=== PATIENT | female | born 1950 | race Caucasian/White ===

== ENCOUNTER 2016-10-30 06:50 | Inpatient (IN) | payer OTHER, MEDICARE ==
[~2016-10-30] VITALS: Ht 172.7 cm; Wt 149.0 kg
[2016-10-30] VITALS (8 sets, daily range): BP systolic 97–129; BP diastolic 61–86; PULSE 71–80; TEMP 36.8–38.7; O2SAT 95–100; Ht 172.7 cm; Wt 149.0 kg
[~2016-10-30 06:50] MED LIST: CHOL200027 PO; CMD2 PO; DIGO0.122 PO; ENOX30IN4 SQ; FENO200C6 PO; FLNIN NAE; GLC/500 PO; METO-551 PO; MOME100A INH; MONT1TAB3 PO; MULT-614 PO; SOTA160T PO; WARF1TAB PO
[2016-10-30] MEDS ORDERED: ACETAMINOPHEN 500 MG TAB PO STA (07:07)
[2016-10-30] MEDS ORDERED: ALBUT/IPRATROP 3MG/0.5MG NEB 3 ML VIAL INH STA (07:07)
[2016-10-30] MEDS ORDERED: ONDANSETRON INJ 2 MG/ML 2 ML VIAL IV STA (07:07)
[2016-10-30] MEDS ORDERED: SODIUM CHLORIDE 0.9% 1000ML 1,000 ML IV STA ×4 (07:07→08:06)
[2016-10-30] MEDS ORDERED: OPTIRAY 320 IV PRN (07:15)
--- NOTE | 2016-10-30 07:25 | EMERGENCY ROOM VISIT NOTE ---
History First contact with patient: 07:00 Chief Complaint: RESPIRATORY PROBLEMS Stated Complaint: NAUSEA,COLD,TROUBLE BREATHING Nursing Triage Summary: pt reports awoke in the night with fever and chills , cough , NV + mucus production yellow in color History of Present Illness The patient is a 66 year old female who presents to the Emergency Room with complaints of dyspnea, fever, chills, vomiting. The patient states that her symptoms started suddenly overnight. She states she has had fevers, chills, nausea, vomiting, productive cough. She reports feeling very short of breath. She states that she felt tired yesterday but otherwise has been doing well. She reports pain with deep inspiration and rates her discomfort a 3/10. She has a history of sarcoidosis. She has a history of pulmonary embolus 2. She is on Coumadin and had her INR checked on Tuesday and it was found to be 2.3. She denies any abdominal pain. She denies any diarrhea. Review of Systems A 10 system review of systems was completed with positives and pertinent negatives listed in the HPI. Past Medical/Surgical History Medical Problems: (1) Aspiration into respiratory tract (2) Atrial fibrillation (3) Pulmonary embolism (4) Sarcoidosis of lung (5) Sepsis Family History Patient reports no known family medical history. Social History Smoking Status: Never Smoker Drug Use: none Marital Status: Occupation Status: retired Current/Historical Medications Scheduled Cholecalciferol (Vitamin D-3), 4,000 MG PO QAM Digoxin (Digoxin), 1 TAB PO QPM Enoxaparin (Lovenox), 20 MG SQ DAILY Fenofibrate (Tricor), 200 MG PO QAM Fluticasone Propionate (Nasal) (Flonase Allergy Relief), 2 SPRAYS BRENDA QAM Metformin Hcl (Glucophage), 500 MG PO TID Metoprolol Tartrate (Lopressor), 50 MG PO PRN UD Mometasone Furoate-Formoterol (Dulera 100/5 Mcg), 2 PUFFS INH BID Multiple Vitamins W/ Minerals (Centrum Silver Ultra Wome), 1 TAB PO QAM Sotalol Hcl (Sotalol Hcl), 1.5 TAB PO BID Warfarin Sod (Coumadin), 1 TAB PO 6XWK Warfarin Sodium (Coumadin), 1 MG PO MON. Scheduled PRN Montelukast Sodium (Singulair), 10 MG PO QAM PRN for ALLERGIC REACTION Allergies Coded Allergies: Penicillins (Verified Allergy, Unknown, RASH ALL OVER, 10/30/16) Sulfa Drugs (Verified Allergy, Unknown, STOMACH ACHES, 10/30/16) Erythromycin (Verified Adverse Reaction, Unknown, STOMACH ACHES, 10/30/16) Loratadine (Verified Adverse Reaction, Unknown, HEART RACE, 10/30/16) Morphine (Verified Adverse Reaction, Unknown, INTOLERANT, 10/30/16) RECEIVED DURAMORPH 07/12/05 04/24/06 PER , PT RECEIVED MORPHINE ONCE AT [facility] AND BECAME "SHAKY", NO SOB, NO RASH, NO PRURITIS..NOT A TRUE ALLERGY Pseudoephedrine (Verified Adverse Reaction, Unknown, INTOLERANT, 10/30/16) Physical Exam Vital Signs Date Time Temp Pulse Resp B/P Pulse Ox O2 Delivery O2 Flow Rate FiO2 10/30/16 08:25 101 22 124/74 98 Nasal Cannula 2.0 10/30/16 07:52 98 10/30/16 07:32 97 Nasal Cannula 2.0 10/30/16 06:55 38.1 105 20 117/69 93 Room Air Physical Exam VITALS: Vitals are noted on the nurse's note and reviewed by myself. The patient is dyspneic. She is febrile with a temperature of 38.1C. She is tachycardic with heart rate 105 bpm. Her oxygen saturation is 93% on room air. GENERAL: This is a 66-year-old female, in no acute distress, nondiaphoretic, well-developed well-nourished. SKIN: The skin was without rashes, erythema, edema, or bruising. There is no tenting of the skin. Capillary reflex less than 2 seconds. HEAD: Normocephalic atraumatic. EARS: External auditory canals clear, tympanic membranes pearly sun without erythema or effusion bilaterally. EYES: Pupils equal round and reactive to light and accommodation. Conjunctivae without injection, sclerae without icterus. Extraocular movements intact. NOSE: Patent, turbinates without inflammation or discharge. MOUTH: Mucous membranes moist. Tonsils are not enlarged. Pharynx without erythema or exudate. Uvula midline. Airway patent. Tongue does not deviate. NECK: Supple without nuchal rigidity. No lymphadenopathy. No thyromegaly. Cervical spine is nontender. No JVD. HEART: Fast rate and regular rhythm without murmurs gallops or rubs. LUNGS: Diminished throughout. The patient is slightly dyspneic. No dullness to percussion. No retractions or accessory muscle use. ABDOMEN: Positive bowel sounds x 4. Soft, nontender, without masses or organomegaly. MUSCULOSKELETAL: No muscle atrophy, erythema, or edema noted. Full range of motion in all extremities. Strength 5/5 throughout. NEURO: Patient was alert and oriented to person place and time. No focal neurological deficits. Medical Decision & Procedures ER Provider Diagnostic Interpretation: SINGLE VIEW CHEST CLINICAL HISTORY: Cough and fever. FINDINGS: An AP, portable, upright chest radiograph is compared to study dated 02/28/2015. Correlation is made with chest CT dated 11/04/2011. The examination is degraded by portable technique, large body habitus, and patient rotation. The heart is enlarged and there is atherosclerotic calcification of the thoracic aorta. The pulmonary vasculature is noncongested. There are numerous calcified granulomas. Calcified mediastinal and hilar lymph nodes are observed. Chronic interstitial thickening is similar to previous. No airspace consolidation is seen typical for pneumonia and there is no large pleural effusion. No pneumothorax is seen. The skeletal structures are osteopenic. The bony thorax is grossly intact. Degenerative change is noted throughout the thoracic spine. IMPRESSION: Cardiomegaly with no acute cardiopulmonary abnormality. Laboratory Results 10/30/16 07:30 Red Blood Count 4.67, Mean Corpuscular Volume 96.1, Mean Corpuscular Hemoglobin 32.5, Mean Corpuscular Hemoglobin Concent 33.9, Mean Platelet Volume 10.1, Neutrophils (%) (Auto) 88.5, Lymphocytes (%) (Auto) 2.8, Monocytes (%) (Auto) 8.2, Eosinophils (%) (Auto) 0.2, Basophils (%) (Auto) 0.1, Neutrophils # (Auto) 16.25, Lymphocytes # (Auto) 0.51, Monocytes # (Auto) 1.50, Eosinophils # (Auto) 0.03, Basophils # (Auto) 0.01 Test 10/30/16 07:30 10/30/16 07:37 10/30/16 07:41 White Blood Count 18.34 K/uL (4.8-10.8) Red Blood Count 4.67 M/uL (4.2-5.4) Hemoglobin 15.2 g/dL (12.0-16.0) Hematocrit 44.9 % (37-47) Mean Corpuscular Volume 96.1 fL (80-100) Mean Corpuscular Hemoglobin 32.5 pg (25-34) Mean Corpuscular Hemoglobin Concent 33.9 g/dl (32-36) Platelet Count 197 K/uL (130-400) Mean Platelet Volume 10.1 fL (7.4-10.4) Neutrophils (%) (Auto) 88.5 % Lymphocytes (%) (Auto) 2.8 % Monocytes (%) (Auto) 8.2 % Eosinophils (%) (Auto) 0.2 % Basophils (%) (Auto) 0.1 % Neutrophils # (Auto) 16.25 K/uL (1.4-6.5) Lymphocytes # (Auto) 0.51 K/uL (1.2-3.4) Monocytes # (Auto) 1.50 K/uL (0.11-0.59) Eosinophils # (Auto) 0.03 K/uL (0-0.5) Basophils # (Auto) 0.01 K/uL (0-0.2) RDW Standard Deviation 44.8 fL (36.4-46.3) RDW Coefficient of Variation 12.9 % (11.5-14.5) Immature Granulocyte % (Auto) 0.2 % Immature Granulocyte # (Auto) 0.04 K/uL (0.00-0.02) Prothrombin Time 21.6 SECONDS (9.0-12.0) Prothromb Time International Ratio 2.0 (0.9-1.1) Activated Partial Thromboplast Time 39.1 SECONDS (21.0-31.0) Partial Thromboplastin Ratio 1.5 Total Bilirubin 0.8 mg/dl (0.2-1) Aspartate Amino Transf (AST/SGOT) 23 U/L (15-37) Alanine Aminotransferase (ALT/SGPT) 27 U/L (12-78) Alkaline Phosphatase 99 U/L (45-117) Total Protein 7.6 gm/dl (6.4-8.2) Albumin 3.6 gm/dl (3.4-5.0) Globulin 4.0 gm/dl (2.5-4.0) Albumin/Globulin Ratio 0.9 (0.9-2) Bedside Hemoglobin 15.3 g/dl (12.0-16.0) Bedside Hematocrit 45 % (37-47) Bedside Sodium 141 mEq/L (135-144) Bedside Potassium 3.8 mEq/L (3.3-5.0) Bedside Chloride 102 mEq/L (101-112) Bedside Total CO2 21 mEq/l (24-31) Bedside Blood Urea Nitrogen 16 mg/dl (7-18) Bedside Creatinine 0.7 mg/dl (0.6-1.3) Bedside Glucose (other) 148 mg/dl (70-99) Bedside Ionized Calcium (Celso) 1.14 mmol/l (1.12-1.32) Bedside Troponin I 0.000 ng/ml (0-0.045) Bedside Lactic Acid Venous 3.30 mmol/L (0.90-1.70) Medications Administered Medications (Trade) Dose Ordered Sig/Trinh Route Start Time Stop Time Status Last Admin Dose Admin Ondansetron HCl (Zofran Inj) 4 mg NOW STAT IV 10/30/16 07:07 10/30/16 07:10 DC 10/30/16 07:37 4 MG Acetaminophen (Tylenol Tab) 1,000 mg NOW STAT PO 10/30/16 07:07 10/30/16 07:10 DC 10/30/16 07:48 1,000 MG Albuterol/ Ipratropium 3 ml 3 ml NOW STAT INH 10/30/16 07:07 10/30/16 07:10 DC 10/30/16 07:48 3 ML Sodium Chloride 1,000 ml @ 100 mls/hr Q10H STAT IV 10/30/16 07:07 10/30/16 11:08 DC 10/30/16 07:48 100 MLS/HR Aztreonam 2000 mg/ Dextrose 110 ml @ 100 mls/hr ONE STAT IV 10/30/16 07:59 10/30/16 09:04 DC 10/30/16 08:24 100 MLS/HR Sodium Chloride 1,000 ml @ 999 mls/hr Q1H1M STAT IV 10/30/16 07:59 10/30/16 08:59 DC 10/30/16 08:03 999 MLS/HR Sodium Chloride 1,000 ml @ 999 mls/hr Q1H1M STAT IV 10/30/16 08:06 10/30/16 09:06 DC 10/30/16 08:24 999 MLS/HR Sodium Chloride 1,000 ml @ 999 mls/hr Q1H1M STAT IV 10/30/16 08:06 10/30/16 09:06 DC 10/30/16 10:00 999 MLS/HR Sodium Chloride (Nss 1000ml) 1,000 ml @ 100 mls/hr Q10H IV 10/30/16 08:43 11/29/16 08:42 10/30/16 08:43 100 MLS/HR Acetaminophen (Tylenol Tab) 650 mg Q4H PRN PO 10/30/16 08:45 11/29/16 08:44 10/30/16 16:00 650 MG Procedure The patient was monitored on a cad developer. She had sinus tachycardia and sinus rhythm. ECG Indication: vomiting Rate (beats per minute): 100 Rhythm: normal sinus Findings: RBBB Change: no significant change ED Course The patient was seen and examined. Previous visits were reviewed. Medication list was reviewed. The patient has a leukocytosis of 18.34 with a left shift. She does not have any significant electrolyte abnormality. Cardiac enzymes were not elevated. Lactic acid was elevated at 3.3. INR was 2.0. Urinalysis suggests infection versus contamination. Chest x-ray does not reveal any obvious abnormality The patient was given 4 mg IV Zofran She was given 1 g of oral Tylenol She was given a DuoNeb She was hydrated with normal saline, 30 mL/kilogram She was given Aztreonam 2 g IV The patient presents to the emergency department with acute onset cough, dyspnea , fever. She did have some episodes of vomiting overnight. This may represent an aspiration pneumonia. The patient appears to have sepsis. She has a leukocytosis, fever and elevated lactic acid at 3.3. She was treated with Aztreonam and clindamycin. Fluoroquinolones were avoided given the prolonged QTC on EKG. The patient was feeling markedly improved with the above treatment. She will require further evaluation and management in the hospital. The case was discussed with Dr. Rodriguez and he will evaluate the patient. The patient was also seen and examined by Dr. Chung who agrees with the assessment and treatment plan. n Medical Decision DIFFERENTIAL DIAGNOSIS: Aortic dissection, myocarditis, pericarditis, cervical disc disease, costochondritis, herpes zoster, rib fracture, pleuritis, pneumonia , pulmonary embolus, tension pneumothorax, anxiety disorder, somatoform disorder , choledocholithiasis, status, esophagitis, esophageal spasm, esophageal reflux , esophageal rupture, pancreatitis, peptic ulcer disease, cardiac ischemia, ST elevation NC, acute coronary syndrome, arrhythmia, coronary artery vasospasm. vavular heart disease, coronary artery disease, among others. Impression Primary Impression: Sepsis Additional Impression: Aspiration into respiratory tract Critical Care I have personally spent greater than 35 minutes of critical care time in the direct management of this patient. This includes bedside care, interpretation of diagnostic studies, and testing, discussion with consultants, patient, and family members, and other required patient management activities. This 30 minutes is in excess of all separately billable procedures. Departure Information Dispostion Admitted as an inpatient Condition FAIR Referrals Teresa RAYMOND M.D. (PCP) Patient Instructions My [facility] Problem Qualifiers
[2016-10-30 07:52] LABS: BASO % 0.1 %; BASO ABS # 0.01 K/uL (0-0.2); COMPLETE YES; EOS % 0.2 %; HEMATOCRIT 44.9 % (37-47); IG% 0.2 %; LYMPH % 2.8 %; LYMPH ABS # 0.51 K/uL (1.2-3.4); MEAN CELL VOLUME 96.1 fL (80-100); MEAN CORPUSCULAR HEMOGLOBIN 32.5 pg (25-34); MEAN CORPUSCULAR HGB CONC 33.9 g/dl (32-36); MEAN PLATELET VOLUME 10.1 fL (7.4-10.4); MONO % 8.2 %; NEUT % 88.5 %; PLATELET COUNT 197 K/uL (130-400); RED BLOOD COUNT 4.67 M/uL (4.2-5.4); WHITE BLOOD COUNT 18.34 K/uL (4.8-10.8)
[2016-10-30 07:54] LABS: ISTAT CREATININE 0.7 mg/dl (0.6-1.3); ISTAT HEMOGLOBIN 15.3 g/dl (12.0-16.0); ISTAT IONIZED CALCIUM 1.14 mmol/l (1.12-1.32)
[2016-10-30] MEDS ORDERED: AZTREONAM IV 2,000 MG in DEXTROSE 5% 100ML 100 ML IV STA (07:59)
[2016-10-30] MEDS ORDERED: CMD2 PO (08:00)
[2016-10-30] MEDS ORDERED: LNX125 PO (08:00)
[2016-10-30] MEDS ORDERED: FLUT0.15 NAE (08:00)
[2016-10-30 08:02] LABS: PARTIAL THROMBOPLASTIN RATIO 1.5; PROTHROMBIN TIME (PATIENT) 21.6 SECONDS (9.0-12.0)
--- NOTE | 2016-10-30 08:02 | DIAGNOSTIC IMAGING REPORT ---
SINGLE VIEW CHEST CLINICAL HISTORY: Cough and fever. FINDINGS: An AP, portable, upright chest radiograph is compared to study dated 02/28/2015. Correlation is made with chest CT dated 11/04/2011. The examination is degraded by portable technique, large body habitus, and patient rotation. The heart is enlarged and there is atherosclerotic calcification of the thoracic aorta. The pulmonary vasculature is noncongested. There are numerous calcified granulomas. Calcified mediastinal and hilar lymph nodes are observed. Chronic interstitial thickening is similar to previous. No airspace consolidation is seen typical for pneumonia and there is no large pleural effusion. No pneumothorax is seen. The skeletal structures are osteopenic. The bony thorax is grossly intact. Degenerative change is noted throughout the thoracic spine. IMPRESSION: Cardiomegaly with no acute cardiopulmonary abnormality. Electronically signed by: Sarwat Yeung M.D. 10/30/2016 8:00 AM Dictated Date/Time: 10/30/2016 7:58 AM
[2016-10-30 08:11] LABS: BUN/CREATININE RATIO 16.9 (10-20); CREATININE 0.99 mg/dl (0.60-1.20); POTASSIUM 3.8 mmol/L (3.5-5.1)
[2016-10-30 08:14] LABS: ALB/GLOB RATIO 0.9 (0.9-2)
[2016-10-30] MEDS ORDERED: CLINDAMYCIN 600 MG/54 ML D5W IV ONE (08:15)
[2016-10-30 08:35] LABS: CALCIUM 9.6 mg/dl (8.5-10.1)
[2016-10-30] MEDS: SODIUM CHLORIDE 0.9% 1000ML 1,000 ML IV SCH ×2 (08:43→22:01)
[2016-10-30] MEDS ORDERED: POLYETHYLENE (MIRALAX) 17 GM PACK PO PRN (08:45)
[2016-10-30] MEDS ORDERED: ALUMINUM/MAGNESIUM/SIMETH (MAALOX MAX) 30 ML UDC PO PRN (08:45)
[2016-10-30] MEDS ORDERED: MAGNESIUM HYDROXIDE SUSP 30 ML UDC PO PRN (08:45)
[2016-10-30] MEDS ORDERED: ONDANSETRON INJ 2 MG/ML 2 ML VIAL IV PRN (08:45)
[2016-10-30] MEDS ORDERED: SOTALOL HCL 80 MG TAB PO SCH (09:00)
--- NOTE | 2016-10-30 09:09 | History and Physical ---
History & Physical Date & Time of Service: October 30, 2016 at 08:53 Chief Complaint: Nausea,Cold,Trouble Breathing Primary Care Physician: Teresa RAYMOND M.D. History of Present Illness Source: patient, family, clinic records This is a 66 year old obese female with a PMH of multiple PEs on Coumadin, atrial fibrillation on sotalol & digoxin, sarcoid lung, moderate persistent asthma presents to the ER due to chills overnight; states that she went to bed in her usual state of health and at about 2AM she developed sudden episode of chills, rigors, weakness. She tried taking medications; and she then developed nausea and multiple episodes of vomiting. She mentions that she felt as if she choked on some of her vomitus. There were no precipitating symptoms prior to this; the only other symptom was mentioned by the , who is at bedside who states that perhaps she was coughing prior to going to sleep. Denies dysuria , urinary frequency, no diarrhea, no chest pain; there was some shortness of breath involved after the vomiting episodes. No abdominal pain. Once in the ER, she had work-up performed; WBC noted to be elevated, lactic acid elevated, she developed a fever - was given antibiotics, fluids, Tylenol - she feels slightly better, but chills persist. Past Medical/Surgical History Medical Problems: (1) Atrial fibrillation Status: Chronic (2) Pulmonary embolism Status: Chronic (3) Sarcoidosis of lung Status: Chronic Family History Patient reports no known family medical history. Social History Smoking Status: Never Smoker Drug Use: none Marital Status: Housing status: lives with family Occupational Status: retired Immunizations History of Influenza Vaccine: Yes Influenza Vaccine Date: Mar 18, 2010 History of Tetanus Vaccine?: Yes Tetanus Immunization Date: Nov 04, 2005 History of Pneumococcal: Yes Pneumococcal Date: Dec 16, 2008 History of Hepatitis B Vaccine: No Multi-Drug Resistant Organisms History of MDRO: No Allergies Coded Allergies: Penicillins (Verified Allergy, Unknown, RASH ALL OVER, 10/30/16) Sulfa Drugs (Verified Allergy, Unknown, STOMACH ACHES, 10/30/16) Erythromycin (Verified Adverse Reaction, Unknown, STOMACH ACHES, 10/30/16) Loratadine (Verified Adverse Reaction, Unknown, HEART RACE, 10/30/16) Morphine (Verified Adverse Reaction, Unknown, INTOLERANT, 10/30/16) RECEIVED DURAMORPH 07/12/05 04/24/06 PER , PT RECEIVED MORPHINE ONCE AT [facility] AND BECAME "SHAKY", NO SOB, NO RASH, NO PRURITIS..NOT A TRUE ALLERGY Pseudoephedrine (Verified Adverse Reaction, Unknown, INTOLERANT, 10/30/16) Home Medications Scheduled Cholecalciferol (Vitamin D-3), 4,000 MG PO QAM Digoxin (Digoxin), 1 TAB PO QPM Enoxaparin (Lovenox), 20 MG SQ DAILY Fenofibrate (Tricor), 200 MG PO QAM Fluticasone Propionate (Nasal) (Flonase Allergy Relief), 2 SPRAYS BRENDA QAM Metformin Hcl (Glucophage), 500 MG PO TID Metoprolol Tartrate (Lopressor), 50 MG PO PRN UD Mometasone Furoate-Formoterol (Dulera 100/5 Mcg), 2 PUFFS INH BID Multiple Vitamins W/ Minerals (Centrum Silver Ultra Wome), 1 TAB PO QAM Sotalol Hcl (Sotalol Hcl), 1.5 TAB PO BID Warfarin Sod (Coumadin), 1 TAB PO 6XWK Warfarin Sodium (Coumadin), 1 MG PO MON. Scheduled PRN Montelukast Sodium (Singulair), 10 MG PO QAM PRN for ALLERGIC REACTION Review of Systems Constitutional: + chills, + fatigue, + fever, + weakness, No sweats, No weight loss Respiratory: + cough, + shortness of breath, No dyspnea at rest, No dyspnea on exertion, No hemoptysis, No sputum, No wheezing Cardiovascular: No chest pain, No claudication, No edema, No orthopnea, No palpitations Abdomen: + nausea, + vomiting, No GI bleeding, No constipation, No diarrhea, No pain Musculoskeletal: No calf pain, No joint pain, No muscle pain, No swelling Genitourinary - Female: No dysuria, No hematuria, No urinary frequency, No urinary incontinence, No urinary retention, No urinary urgency Neurologic: + weakness, No balance problems, No numbness/tingling, No vertigo Psychiatric: No anxiety, No depression symptoms, No insomnia Hematologic / Lymphatic: No abnormal bleeding/bruising Integumentary: No rash Allergic / Immunologic: + environmental allergies, + seasonal allergies, No food allergies, No frequent infections, No hives, No pet sensitivities Physical Exam Vital Signs Date Time Temp Pulse Resp B/P Pulse Ox O2 Delivery O2 Flow Rate FiO2 10/30/16 08:25 101 22 124/74 98 Nasal Cannula 2.0 10/30/16 07:52 98 10/30/16 07:32 97 Nasal Cannula 2.0 10/30/16 06:55 38.1 105 20 117/69 93 Room Air General Appearance: + mild distress ([id number] distress; chills/rigors noted during exam), + obese Head: normocephalic, atraumatic Eyes: normal inspection ENT: hearing grossly normal Neck: supple Respiratory/Chest: no respiratory distress, no accessory muscle use, + decreased breath sounds, + pertinent finding (no wheezing, no rhonchi) Cardiovascular: no edema, no gallop, no JVD, no murmur, normal peripheral pulses, + tachycardia Abdomen/GI: normal bowel sounds, non tender, soft, no organomegaly Extremities/Musculoskelatal: normal inspection, no calf tenderness, normal capillary refill, no pedal edema, normal range of motion Neurologic/Psych: forward 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 controller/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 officer II-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 nml as tested, no motor/sensory deficits, alert, normal mood/affect Skin: normal color Lymphatic: no adenopathy Diagnostics Laboratory Results Results Past 24 Hours Test 10/30/16 07:30 10/30/16 07:37 10/30/16 07:41 10/30/16 08:43 Range/Units White Blood Count 18.34 4.8-10.8 K/uL Red Blood Count 4.67 4.2-5.4 M/uL Hemoglobin 15.2 12.0-16.0 g/dL Hematocrit 44.9 37-47 % Mean Corpuscular Volume 96.1 80-100 fL Mean Corpuscular Hemoglobin 32.5 25-34 pg Mean Corpuscular Hemoglobin Concent 33.9 32-36 g/dl Platelet Count 197 130-400 K/uL Mean Platelet Volume 10.1 7.4-10.4 fL Neutrophils (%) (Auto) 88.5 % Lymphocytes (%) (Auto) 2.8 % Monocytes (%) (Auto) 8.2 % Eosinophils (%) (Auto) 0.2 % Basophils (%) (Auto) 0.1 % Neutrophils # (Auto) 16.25 1.4-6.5 K/uL Lymphocytes # (Auto) 0.51 1.2-3.4 K/uL Monocytes # (Auto) 1.50 0.11-0.59 K/uL Eosinophils # (Auto) 0.03 0-0.5 K/uL Basophils # (Auto) 0.01 0-0.2 K/uL RDW Standard Deviation 44.8 36.4-46.3 fL RDW Coefficient of Variation 12.9 11.5-14.5 % Immature Granulocyte % (Auto) 0.2 % Immature Granulocyte # (Auto) 0.04 0.00-0.02 K/uL Prothrombin Time 21.6 9.0-12.0 SECONDS Prothromb Time International Ratio 2.0 0.9-1.1 Activated Partial Thromboplast Time 39.1 21.0-31.0 SECONDS Partial Thromboplastin Ratio 1.5 Sodium Level 139 136-145 mmol/L Potassium Level 3.8 3.5-5.1 mmol/L Chloride Level 106 98-107 mmol/L Carbon Dioxide Level 24 21-32 mmol/L Anion Gap 9.0 23.0 16-25 mmol/L Blood Urea Nitrogen 17 7-18 mg/dl Creatinine 0.99 0.60-1.20 mg/dl Est Creatinine Clear Calc Drug Dose 87.2 ml/min Estimated GFR () 68.8 Estimated GFR (Non- 59.4 BUN/Creatinine Ratio 16.9 10-20 Random Glucose 146 70-99 mg/dl Calcium Level 9.6 8.5-10.1 mg/dl Total Bilirubin 0.8 0.2-1 mg/dl Aspartate Amino Transf (AST/SGOT) 23 15-37 U/L Alanine Aminotransferase (ALT/SGPT) 27 12-78 U/L Alkaline Phosphatase 99 45-117 U/L Total Creatine Kinase 85 26-192 U/L Total Protein 7.6 6.4-8.2 gm/dl Albumin 3.6 3.4-5.0 gm/dl Globulin 4.0 2.5-4.0 gm/dl Albumin/Globulin Ratio 0.9 0.9-2 Bedside Hemoglobin 15.3 12.0-16.0 g/dl Bedside Hematocrit 45 37-47 % Bedside Sodium 141 135-144 mEq/L Bedside Potassium 3.8 3.3-5.0 mEq/L Bedside Chloride 102 101-112 mEq/L Bedside Total CO2 21 24-31 mEq/l Bedside Blood Urea Nitrogen 16 7-18 mg/dl Bedside Creatinine 0.7 0.6-1.3 mg/dl Bedside Glucose (other) 148 70-99 mg/dl Bedside Ionized Calcium (Celso) 1.14 1.12-1.32 mmol/l Bedside Troponin I 0.000 0-0.045 ng/ml Bedside Lactic Acid Venous 3.30 0.90-1.70 mmol/L Microbiology Results 10/30/16 Blood Culture, Received Pending 10/30/16 Blood Culture, Received Pending Diagnostic Radiology SINGLE VIEW CHEST CLINICAL HISTORY: Cough and fever. FINDINGS: An AP, portable, upright chest radiograph is compared to study dated 02/28/2015. Correlation is made with chest CT dated 11/04/2011. The examination is degraded by portable technique, large body habitus, and patient rotation. The heart is enlarged and there is atherosclerotic calcification of the thoracic aorta. The pulmonary vasculature is noncongested. There are numerous calcified granulomas. Calcified mediastinal and hilar lymph nodes are observed. Chronic interstitial thickening is similar to previous. No airspace consolidation is seen typical for pneumonia and there is no large pleural effusion. No pneumothorax is seen. The skeletal structures are osteopenic. The bony thorax is grossly intact. Degenerative change is noted throughout the thoracic spine. IMPRESSION: Cardiomegaly with no acute cardiopulmonary abnormality. EKG NSR RBBB Impression Assessment and Plan This is a 66 year old obese female with a PMH of multiple PEs on Coumadin, atrial fibrillation on sotalol & digoxin, sarcoid lung, moderate persistent asthma presents to the ER due to chills/rigors Sepsis possibly secondary to pneumonia? CXR Cardiomegaly with no acute cardiopulmonary abnormality noted to have leukocytosis, lactic acidosis, fever, tachycardia, meets sepsis criteria Unsure the source, though patient noted she had vomiting with chills/rigors and likely aspirated on vomitus will treat aspiration pneumonia - noted penicillin allergy; will start Clindamycin 600mg q8 blood cultures pending will give IVFs and recheck lactic acid Tylenol PRN for fevers will recheck CXR in AM check urinalysis monitor in tele Hx. of Multiple PEs continue Coumadin INR = 2.0 A. Fib currently in sinus rhythm tachycardic, likely from dehydration + infection will give IVFs, monitor in tele continue digoxin + sotalol Prolonged QTc >500 on current EKG will recheck EKG in AM avoid prolonging agents; will continue Sotalol Sarcoid Lung continue inhalers nebs as needed DVT ppx Coumadin FULL CODE VTE Prophylaxis VTE Risk Assessment Done? Y/N: Yes Risk Level: High Given or contraindicated: Warfarin (Coumadin)
[2016-10-30 09:45] LABS: BUN/CREATININE RATIO 17.8 (10-20); CALCIUM 8.1 mg/dl (8.5-10.1); CREATININE 0.88 mg/dl (0.60-1.20); MAGNESIUM 1.6 mg/dl (1.8-2.4); POTASSIUM 3.8 mmol/L (3.5-5.1)
[2016-10-30] MEDS ORDERED: CLINDAMYCIN IV 600 MG in DEXTROSE 5% ADD-VANTAGE 50ML 50 ML IV ONE (10:00)
[2016-10-30] MEDS ORDERED: CLINDAMYCIN CONSULT ACTIVE PRN ×2 (10:10)
[2016-10-30] MEDS ORDERED: MAGNESIUM SULFATE 1GM / D5W 1 GM in PREMIXED IN D5W 100 ML IV ONE ×2 (11:15→12:15)
[2016-10-30] MEDS: POTASSIUM CHLR 10 MEQ / WTR 10 MEQ in PREMIXED WATER 100 ML IV SCH ×2 (11:33→12:27)
[2016-10-30] MEDS: ASPIRIN 81 MG ECTAB PO SCH (12:28)
[2016-10-30] MEDS: FLUTICASONE PROPIONATE NA SPR 16 GM BTL NAE SCH (12:28)
[2016-10-30] MEDS: MONTELUKAST SOD 10 MG TAB PO PRN (12:28)
[2016-10-30] MEDS: SOTALOL HCL 80 MG TAB PO SCH ×2 (12:30→22:00)
[2016-10-30 13:03] LABS: URINE APPEARANCE CLOUDY (CLEAR); URINE BILIRUBIN NEG (NEG); URINE COLOR DK YELLOW; URINE EPITHELIAL CELL AUTO >30 /lpf (0-5); URINE NITRITE NEG (NEG); URINE PH 5.5 (4.5-7.5); URINE SPECIFIC GRAVITY 1.026 (1.000-1.030); UROBILINOGEN NEG (NEG); ZZUR CULT IF INDIC CLEAN CATCH YES
[2016-10-30 13:04] LABS: MANUAL MICROSCOPIC REQUIRED? NO; REVIEW REQ? NO
--- NOTE | 2016-10-30 14:31 | EMERGENCY ROOM VISIT NOTE ---
ED Visit Note First contact with patient: 07:00 I have personally evaluated and examined this patient. I agree with assessment and plan of Maria Luisa Sanchez PA-C. Sepsis likely secondary to lung source given her complaints and exam. With allergies and prolonged qtc will treat with aztreonam and clinda. She has no abdominal pain nor evidence that this is intraabdominal source.
[2016-10-30] MEDS: LEVALBUTEROL 1.25MG/0.5ML NEB INH SCH ×2 (14:33→18:50)
[2016-10-30] MEDS: ACETAMINOPHEN 325 MG TAB PO PRN ×2 (16:00→23:46)
[2016-10-30] MEDS: WARFARIN SOD 2 MG TAB PO SCH (16:18)
[2016-10-30] MEDS: DIGOXIN 0.125 MG TAB PO SCH (16:19)
[2016-10-30] MEDS: CLINDAMYCIN IV 600 MG in DEXTROSE 5% ADD-VANTAGE 50ML 50 ML IV SCH ×2 (16:19→21:59)
[2016-10-31] VITALS (13 sets, daily range): BP systolic 98–122; BP diastolic 59–87; PULSE 68–110; TEMP 36.9–38; O2SAT 91–99
[2016-10-31] MEDS: LEVALBUTEROL 1.25MG/0.5ML NEB INH SCH ×4 (01:53→18:52)
[2016-10-31] MEDS: CLINDAMYCIN IV 600 MG in DEXTROSE 5% ADD-VANTAGE 50ML 50 ML IV SCH ×4 (03:47→21:42)
[2016-10-31] MEDS: SODIUM CHLORIDE 0.9% 1000ML 1,000 ML IV SCH ×3 (04:55→16:12)
[2016-10-31 07:33] LABS: BASO % 0.1 %; BASO ABS # 0.01 K/uL (0-0.2); COMPLETE YES; EOS % 0.1 %; HEMATOCRIT 41.8 % (37-47); IG% 0.2 %; LYMPH % 5.3 %; LYMPH ABS # 0.67 K/uL (1.2-3.4); MEAN CELL VOLUME 99.3 fL (80-100); MEAN CORPUSCULAR HEMOGLOBIN 32.5 pg (25-34); MEAN CORPUSCULAR HGB CONC 32.8 g/dl (32-36); MEAN PLATELET VOLUME 9.5 fL (7.4-10.4); MONO % 9.4 %; NEUT % 84.9 %; PLATELET COUNT 138 K/uL (130-400); RED BLOOD COUNT 4.21 M/uL (4.2-5.4); WHITE BLOOD COUNT 12.58 K/uL (4.8-10.8)
[2016-10-31] MEDS: ASPIRIN 81 MG ECTAB PO SCH (07:33)
[2016-10-31] MEDS: MONTELUKAST SOD 10 MG TAB PO PRN (07:33)
[2016-10-31] MEDS: FLUTICASONE PROPIONATE NA SPR 16 GM BTL NAE SCH (07:33)
[2016-10-31] MEDS: SOTALOL HCL 80 MG TAB PO SCH ×2 (07:33→20:23)
[2016-10-31 07:48] LABS: PROTHROMBIN TIME (PATIENT) 21.7 SECONDS (9.0-12.0)
[2016-10-31 08:15] LABS: BUN/CREATININE RATIO 17.6 (10-20); CREATININE 0.85 mg/dl (0.60-1.20); MAGNESIUM 2.2 mg/dl (1.8-2.4); POTASSIUM 3.9 mmol/L (3.5-5.1)
[2016-10-31 08:26] LABS: THYROID STIMULATING HORMONE 1.08 uIu/ml (0.300-4.500)
[2016-10-31 08:28] LABS: CALCIUM 8.8 mg/dl (8.5-10.1)
--- NOTE | 2016-10-31 09:37 | DIAGNOSTIC IMAGING REPORT ---
CHEST 2 VIEWS ROUTINE CLINICAL HISTORY: Shortness of breath. Evaluate for pneumonia. COMPARISON STUDY: Chest radiograph October 30, 2016. FINDINGS: There is no pneumothorax or pleural effusion. Mild cardiomegaly is unchanged. Mild interstitial thickening may be chronic. There is no consolidation to suggest pneumonia. IMPRESSION: Mild cardiomegaly with interstitial thickening which may be chronic. No consolidation to suggest pneumonia. Electronically signed by: John John M.D. 10/31/2016 9:35 AM Dictated Date/Time: 10/31/2016 9:34 AM
--- NOTE | 2016-10-31 10:07 | Progress Note ---
Subjective Date of Service: October 31, 2016. Subjective Pt evaluation today including: conversation w/ patient, physical exam, lab review, review of studies, review of inpatient medication list Saw/examined the patient in room 207 She still has chills today, overall feeling very weak shortness of breath has improved no significant coughing episodes c/o L lower extremity pain Review of Systems Constitutional: + chills, + fatigue, + fever, + sweats, + weakness Respiratory: + cough, + shortness of breath (improving), No dyspnea on exertion , No sputum, No wheezing Cardiac: No chest pain, No edema, No palpitations Abdomen: + nausea, No GI bleeding, No constipation, No diarrhea, No pain, No vomiting Heme: No abnormal bleeding/bruising Medications Current Inpatient Medications Medications (Trade) Dose Ordered Sig/Trinh Route Start Time Stop Time Status Last Admin Dose Admin Sodium Chloride (Nss 1000ml) 1,000 ml @ 100 mls/hr Q10H IV 10/30/16 08:43 11/29/16 08:42 10/31/16 04:55 100 MLS/HR Acetaminophen (Tylenol Tab) 650 mg Q4H PRN PO 10/30/16 08:45 11/29/16 08:44 10/30/16 23:46 650 MG Al Hydrox/Mg Hydrox/Simethicone (Maalox Max Susp) 15 ml Q4H PRN PO 10/30/16 08:45 11/29/16 08:44 Magnesium Hydroxide (Milk Of Magnesia Susp) 30 ml Q12H PRN PO 10/30/16 08:45 11/29/16 08:44 Ondansetron HCl (Zofran Inj) 4 mg Q6H PRN IV 10/30/16 08:45 11/29/16 08:44 10/30/16 19:30 4 MG Aspirin (Ecotrin Tab) 81 mg QAM PO 10/30/16 09:00 11/29/16 08:59 10/31/16 07:33 81 MG Polyethylene (Miralax Powder Packet) 17 gm DAILY PRN PO 10/30/16 08:45 11/29/16 08:44 Clindamycin Phosphate 1 ea 1 ea UD PRN N/A 10/30/16 10:10 11/29/16 10:09 Clindamycin Phosphate/Dextrose (Cleocin Iv/ Dextrose Add-[place] 50ML) 54 ml @ 100 mls/hr Q6H IV 10/30/16 16:00 11/06/16 15:59 10/31/16 03:47 100 MLS/HR Digoxin (Lanoxin Tab) 0.125 mg DAILY@1600 PO 10/30/16 16:00 11/29/16 15:59 10/30/16 16:19 0.125 MG Fluticasone Propionate (Flonase Nasal [place]) 2 sprays QAM BRENDA 10/30/16 09:00 11/29/16 08:59 10/31/16 07:33 2 SPRAYS Montelukast Sodium (Singulair Tab) 10 mg QAM PRN PO 10/30/16 09:00 11/29/16 08:59 10/31/16 07:33 10 MG Warfarin Sodium (Coumadin Tab) 2 mg SuTuWeThFrSa@1600 PO 10/30/16 16:00 11/29/16 15:59 10/30/16 16:18 2 MG Miscellaneous Information (Order Awaiting Action) 1 ea QS N/A 10/30/16 16:00 11/29/16 15:59 Levalbuterol (Xopenex 1.25MG/ 0.5ML Neb) 1.25 mg Q6R INH 10/30/16 15:00 11/29/16 14:59 10/31/16 07:43 1.25 MG Warfarin Sodium (Coumadin Tab) 1 mg Mo@1600 PO 11/01/16 16:00 12/01/16 15:59 Sotalol HCl 240 mg 240 mg BID PO 10/30/16 12:30 11/29/16 12:29 10/31/16 07:33 240 MG Levofloxacin/Prmx (Levaquin / D5W/ Premixed D5W) 150 ml @ 100 mls/hr Q24H IV 10/31/16 10:00 11/07/16 09:59 Objective Vital Signs Date Time Temp Pulse Resp B/P Pulse Ox O2 Delivery O2 Flow Rate FiO2 10/31/16 07:43 68 16 91 Room Air 10/31/16 04:00 Nasal Cannula 2.0 10/31/16 03:31 37.0 70 21 99/59 95 Room Air 10/31/16 01:53 75 16 97 Nasal Cannula 2.0 10/31/16 00:02 Nasal Cannula 2.0 10/30/16 23:44 38.7 76 22 97/63 97 Nasal Cannula 2.0 10/30/16 20:00 Nasal Cannula 2.0 10/30/16 19:51 36.9 79 24 101/86 99 Nasal Cannula 2.0 10/30/16 18:50 71 16 98 Nasal Cannula 3.0 10/30/16 16:19 77 10/30/16 16:00 95 Nasal Cannula 3.0 10/30/16 15:59 36.8 77 20 129/65 100 Nasal Cannula 3.0 10/30/16 14:34 77 16 98 Nasal Cannula 3.0 10/30/16 12:00 95 Nasal Cannula 3.0 10/30/16 11:10 37.8 80 20 105/61 95 Nasal Cannula 3.0 10/30/16 10:40 86 18 95 Physical Exam General Appearance: + mild distress (mild to moderate distress - chills, weakness), + obese Respiratory/Chest: chest non-tender, lungs clear, normal breath sounds, no respiratory distress, no accessory muscle use Cardiovascular: regular rate, rhythm, no edema, no murmur Abdomen: normal bowel sounds, non tender, soft Extremities: + pertinent finding (warmth at the LLE; mildly erythematous) Neurologic/Psychiatric: no motor/sensory deficits, alert, normal mood/affect Laboratory Results Last 24 Hours Test 10/30/16 12:00 10/30/16 15:27 10/30/16 22:47 10/31/16 07:22 Urine Color DK YELLOW Urine Appearance CLOUDY Urine pH 5.5 Urine Specific [place] 1.026 Urine Protein NEG Urine Glucose (UA) NEG Urine Ketones TRACE Urine Occult Blood TRACE Urine Nitrite NEG Urine Bilirubin NEG Urine Urobilinogen NEG Urine Leukocyte Esterase MODERATE Urine WBC (Auto) >30 /hpf Urine RBC (Auto) 0-4 /hpf Urine Hyaline Casts (Auto) 5-10 /lpf Urine Epithelial Cells (Auto) >30 /lpf Urine Bacteria (Auto) 2+ Total Creatine Kinase 100 U/L 116 U/L Creatine Kinase MB < 0.5 ng/ml < 0.5 ng/ml Creatine Kinase MB Ratio Troponin I < 0.015 ng/ml < 0.015 ng/ml White Blood Count 12.58 K/uL Red Blood Count 4.21 M/uL Hemoglobin 13.7 g/dL Hematocrit 41.8 % Mean Corpuscular Volume 99.3 fL Mean Corpuscular Hemoglobin 32.5 pg Mean Corpuscular Hemoglobin Concent 32.8 g/dl Platelet Count 138 K/uL Mean Platelet Volume 9.5 fL Neutrophils (%) (Auto) 84.9 % Lymphocytes (%) (Auto) 5.3 % Monocytes (%) (Auto) 9.4 % Eosinophils (%) (Auto) 0.1 % Basophils (%) (Auto) 0.1 % Neutrophils # (Auto) 10.69 K/uL Lymphocytes # (Auto) 0.67 K/uL Monocytes # (Auto) 1.18 K/uL Eosinophils # (Auto) 0.01 K/uL Basophils # (Auto) 0.01 K/uL RDW Standard Deviation 49.3 fL RDW Coefficient of Variation 13.6 % Immature Granulocyte % (Auto) 0.2 % Immature Granulocyte # (Auto) 0.02 K/uL Prothrombin Time 21.7 SECONDS Prothromb Time International Ratio 2.0 Sodium Level 137 mmol/L Potassium Level 3.9 mmol/L Chloride Level 103 mmol/L Carbon Dioxide Level 27 mmol/L Anion Gap 7.0 mmol/L Blood Urea Nitrogen 15 mg/dl Creatinine 0.85 mg/dl Est Creatinine Clear Calc Drug Dose 100.6 ml/min Estimated GFR () 82.8 Estimated GFR (Non- 71.4 BUN/Creatinine Ratio 17.6 Random Glucose 116 mg/dl Calcium Level 8.8 mg/dl Magnesium Level 2.2 mg/dl Thyroid Stimulating Hormone (TSH) 1.080 uIu/ml Test 10/31/16 08:07 Lactic Acid Level 1.7 mmol/L Assessment and Plan This is a 66 year old obese female with a PMH of multiple PEs on Coumadin, atrial fibrillation on sotalol & digoxin, sarcoid lung, moderate persistent asthma presents to the ER due to chills/rigors Sepsis possibly secondary to CAP vs. UTI 10/31 clinically she feels about the same, significant chills, sweats, weakness spiking fevers at night WBC trending down, lactic acid normalized will keep Clindamycin and add Levaquin to the regimen cut IVF rate to 80mL/hr CXR from this morning shows no consolidation or infiltrate to suggest pneumonia , though clinically, possibly a pneumonia UA positive leuks and +2 bacteria, urine culture, blood cultures pending 10/30 CXR Cardiomegaly with no acute cardiopulmonary abnormality noted to have leukocytosis, lactic acidosis, fever, tachycardia, meets sepsis criteria Unsure the source, though patient noted she had vomiting with chills/rigors and likely aspirated on vomitus will treat aspiration pneumonia - noted penicillin allergy; will start Clindamycin 600mg q8 blood cultures pending will give IVFs and recheck lactic acid Tylenol PRN for fevers will recheck CXR in AM check urinalysis monitor in tele Hx. of Multiple PEs continue Coumadin INR = 2.0 A. Fib 10/31 HRs have improved with IVFs continue sotalol and digoxin 10/30 currently in sinus rhythm tachycardic, likely from dehydration + infection will give IVFs, monitor in tele continue digoxin + sotalol Prolonged QTc >500 on current EKG will recheck EKG in AM avoid prolonging agents; will continue Sotalol Sarcoid Lung continue inhalers nebs as needed DVT ppx Coumadin FULL CODE
[2016-10-31] MEDS: ACETAMINOPHEN 325 MG TAB PO PRN ×3 (11:05→20:24)
[2016-10-31] MEDS: LEVOFLOXACIN / D5W 750 MG in PREMIXED IN D5W 150 ML IV SCH (11:05)
[2016-10-31] MEDS ORDERED: DILTIAZEM HCL 5 MG/ML 5 ML VIAL IV STA (11:39)
[2016-10-31] MEDS: DIGOXIN 0.125 MG TAB PO SCH (16:11)
[2016-10-31] MEDS: WARFARIN SOD 2 MG TAB PO SCH (16:12)
[2016-10-31] MEDS ORDERED: METOPROLOL TARTRATE 1 MG/ML VIAL IV PRN (17:15)
--- NOTE | 2016-10-31 20:49 | CARDIOLOGY CONSULTATION ---
DATE OF CONSULTATION: 10/31/2016 TIME: 16:59 p.m. PRIMARY POLICY SERVICE COORDINATOR: Dr. Jeff Schneider. CONSULTING PHYSICIAN: Dr. Rodriguez. REASON FOR CONSULTATION: Atrial fibrillation with rapid ventricular response. HISTORY OF PRESENT ILLNESS: Ms. Toscano is a pleasant 66-year-old female with a history significant for atrial fibrillation on antiarrhythmic therapy and anticoagulation, pulmonary embolism x2 approximately 30 years ago, and pulmonary sarcoidosis who presented to [facility] and was diagnosed with sepsis. She was found be into atrial fibrillation with rapid ventricular response this morning, after initially being in sinus rhythm. She has been on sotalol for approximately 30 years and has been taking 240 mg twice daily. She has been on Coumadin and is followed by [facility] in [place]. Her INR has been therapeutic throughout both on presentation and when repeated today with an INR of 2. She denies bleeding such as melena, hematochezia or hematuria. She typically feels palpitations when she has atrial fibrillation episodes which occurs few times a year. At home, she takes metoprolol 50 mg as needed when she has atrial fibrillation and typically within 45 minutes, her symptoms resolved and she checks her pulse and finds it to be both regular and with a normal rate, following beta karla administration. She has been taking her medications as prescribed but woke up at 2:00 a.m. yesterday morning with fevers and chills and then developed nausea and eventually vomiting before coming to the hospital for further evaluation. She has been febrile intermittently throughout her hospital stay and has been diagnosed with sepsis by the primary service. She went into atrial fibrillation this morning but unlike other episodes that she explained in the past, she is asymptomatic. She denies palpitations. She did have pleuritic chest pain yesterday, but this has resolved and she has not had any worsening symptoms with atrial fibrillation. In fact, her breathing overall has improved throughout her hospital stay. She was given diltiazem 20 mg IV x1 at 12:21 this afternoon. Her heart rate has been tachycardic while in atrial fibrillation and mostly during our visit today her heart rate has been between 100 and 120, but she has been as fast as 130s at times. She has developed left lower leg pain with walking that started this morning. It developed red erythema and pain. She wonders if she has cellulitis. She reports having pulmonary emboli approximately 30 years ago around the time that she developed atrial fibrillation. In regards to her atrial fibrillation, sotalol doses have increased over the years. She also has been placed on digoxin chronically. She has undergone electrical cardioversion once approximately 20 years ago, otherwise, her paroxysmal episodes tend to be short lived. REVIEW OF SYSTEMS: As above and otherwise review of systems are negative. PAST MEDICAL HISTORY: 1. Atrial fibrillation on antiarrhythmic therapy and anticoagulation therapy as described. 2. Pulmonary emboli, approximately 30 years ago, on 2 separate occasions. 3. Pulmonary sarcoidosis, but has not yet received treatment. She is followed by pulmonology. 4. Asthma. 5. Prediabetes. HOME MEDICATIONS: Include Coumadin, digoxin 0.125 mg daily, metformin 500 mg b.i.d., metoprolol 50 mg once daily as needed for atrial fibrillation, Singulair, sotalol 240 mg twice daily. INPATIENT MEDICATIONS: Include aspirin 81 mg daily, clindamycin 600 mg IV q. 6 hours, digoxin 0.125 mg daily, levofloxacin 750 mg IV q. 24 hours, normal saline 80 mL per hour, sotalol 240 mg p.o. b.i.d., Coumadin 2 mg all days of the week except for Tuesday when she takes 1 mg. ALLERGIES: INCLUDE ERYTHROMYCIN, LORATADINE, MORPHINE, PENICILLIN, PSEUDOEPHEDRINE AND SULFA DRUGS. SOCIAL HISTORY: Denies tobacco, alcohol or drug abuse. She is . She has 2 children and 4 grandchildren. She is currently alone in her hospital room. FAMILY HISTORY: No known premature CAD. PHYSICAL EXAMINATION: VITAL SIGNS: Temperature 37.7 degrees, heart rate 104 beats per minute, respiration rate 16, blood pressure 101/79 mmHg, oxygen saturation 96% on room air. I's and O's positive 1.1 liters yesterday. Weight 149 kg. GENERAL: No acute distress. She is alert and oriented. HEENT: Anicteric sclerae. NECK: Thick, no appreciable JVD. No bruits. Normal carotid upstrokes bilaterally. CARDIAC: PMI was nonpalpable. There was no ventricular heave, irregularly irregular, normal S1, S2. There were no audible murmurs, rubs or gallops. LUNGS: Clear to auscultation bilaterally without wheezes, rales or rhonchi. ABDOMEN: Obese, soft, nontender, nondistended, normoactive bowel sounds, no bruits noted. EXTREMITIES: No edema. There is erythema in left lower extremity which is also warm to touch. No palpable cords. 2+ radial pulses bilaterally. 2+ dorsalis pedis pulses bilaterally. PSYCHIATRIC: Affect appears appropriate. DATA: ECG 10/30/2016 at 7:39 a.m. demonstrated normal sinus rhythm at 100 beats per minute. Right bundle branch block. QT interval is acceptable. LABORATORY DATA: INR 2. Sodium 137, potassium 3.9, BUN 15, creatinine 0.85, magnesium 2.2. Lactic acid was initially 2.7 down to 1.7, glucose 116. Troponin undetectable. TSH 1.08, albumin 3.6. White blood cell count 12.58 down from 18.34, hemoglobin 13.7, platelets 138. Urinalysis has moderate leukocyte esterase, many white blood cells, trace occult blood and 2+ bacteria. Urine culture - more than 3 organisms present, all moderate counts, mixed probable skin myles. Blood cultures pending. Telemetry personally reviewed. Currently in atrial fibrillation. ASSESSMENT AND PLAN: 1. Atrial fibrillation: She has paroxysmal atrial fibrillation and is currently in rapid ventricular response. The rapid response is likely physiologic given her ongoing fevers. Her episode of atrial fibrillation may also be exacerbated by fevers. Continue sotalol at home dose for now as well as digoxin. Will write an order for p.r.n. metoprolol intravenously for heart rates greater than 120 beats per minute. Hopefully, when her fever breaks and she starts to improve clinically, she will convert back to sinus rhythm. Monitor QT interval while on sotalol and also fluoroquinolone. Initial ECG - QT is acceptable, especially when accounting for her right bundle branch block. Continue anticoagulation for stroke risk reduction. INR is therapeutic. 2. Cellulitis and concern for urinary tract infection: As per primary service. 3. Prolonged QT: Her acute TQ measures long; however; she has a right bundle branch block and therefore, her initial ECG, it is acceptable. Monitor QT closely; however, given her medications. We will repeat ECG tomorrow. 4. Disposition: Cardiology will continue to follow. Thank for allowing me to participate in care of Ms. Toscano.
[2016-11-01] VITALS (9 sets, daily range): BP systolic 97–148; BP diastolic 55–70; PULSE 65–89; TEMP 36.5–37; O2SAT 93–97
[2016-11-01] MEDS: LEVALBUTEROL 1.25MG/0.5ML NEB INH SCH ×3 (02:21→14:30)
[2016-11-01] MEDS: ACETAMINOPHEN 325 MG TAB PO PRN ×4 (02:26→20:32)
[2016-11-01] MEDS: SODIUM CHLORIDE 0.9% 1000ML 1,000 ML IV SCH ×2 (03:45→16:10)
[2016-11-01] MEDS: CLINDAMYCIN IV 600 MG in DEXTROSE 5% ADD-VANTAGE 50ML 50 ML IV SCH ×4 (03:45→20:33)
[2016-11-01 05:57] LABS: HEMATOCRIT 36.6 % (37-47); MEAN CELL VOLUME 99.2 fL (80-100); MEAN CORPUSCULAR HEMOGLOBIN 33.9 pg (25-34); MEAN CORPUSCULAR HGB CONC 34.2 g/dl (32-36); MEAN PLATELET VOLUME 10.1 fL (7.4-10.4); PLATELET COUNT 131 K/uL (130-400); RED BLOOD COUNT 3.69 M/uL (4.2-5.4); WHITE BLOOD COUNT 7.95 K/uL (4.8-10.8)
[2016-11-01 06:13] LABS: INR 2.2 (0.9-1.1); PROTHROMBIN TIME (PATIENT) 24.4 SECONDS (9.0-12.0)
[2016-11-01 06:33] LABS: BUN/CREATININE RATIO 18.6 (10-20); CALCIUM 7.9 mg/dl (8.5-10.1); CREATININE 0.68 mg/dl (0.60-1.20); MAGNESIUM 2.1 mg/dl (1.8-2.4); POTASSIUM 3.6 mmol/L (3.5-5.1)
[2016-11-01] MEDS: ASPIRIN 81 MG ECTAB PO SCH (08:03)
[2016-11-01] MEDS: SOTALOL HCL 80 MG TAB PO SCH ×2 (08:03→20:32)
[2016-11-01] MEDS: FLUTICASONE PROPIONATE NA SPR 16 GM BTL NAE SCH (08:03)
--- NOTE | 2016-11-01 10:04 | Progress Note ---
Subjective Date of Service: November 01, 2016. Subjective Pt evaluation today including: conversation w/ patient, physical exam, lab review, review of studies, review of inpatient medication list Saw/examined the patient in room 207 She's doing much better today breathing improved no chest pain L LE erythema, pain Review of Systems Constitutional: + weakness, No chills, No fever Respiratory: No cough, No shortness of breath, No sputum Cardiac: No chest pain Abdomen: No diarrhea, No nausea, No pain, No vomiting Musculoskeletal: + muscle pain (L LE) Medications Current Inpatient Medications Medications (Trade) Dose Ordered Sig/Trinh Route Start Time Stop Time Status Last Admin Dose Admin Sodium Chloride (Nss 1000ml) 1,000 ml @ 80 mls/hr [id number] IV 10/30/16 08:43 11/29/16 08:42 11/01/16 03:45 80 MLS/HR Acetaminophen (Tylenol Tab) 650 mg Q4H PRN PO 10/30/16 08:45 11/29/16 08:44 11/01/16 08:54 650 MG Al Hydrox/Mg Hydrox/Simethicone (Maalox Max Susp) 15 ml Q4H PRN PO 10/30/16 08:45 11/29/16 08:44 Magnesium Hydroxide (Milk Of Magnesia Susp) 30 ml Q12H PRN PO 10/30/16 08:45 11/29/16 08:44 Ondansetron HCl (Zofran Inj) 4 mg Q6H PRN IV 10/30/16 08:45 11/29/16 08:44 10/30/16 19:30 4 MG Aspirin (Ecotrin Tab) 81 mg QAM PO 10/30/16 09:00 11/29/16 08:59 11/01/16 08:03 81 MG Polyethylene (Miralax Powder Packet) 17 gm DAILY PRN PO 10/30/16 08:45 11/29/16 08:44 Clindamycin Phosphate 1 ea 1 ea UD PRN N/A 10/30/16 10:10 11/29/16 10:09 Clindamycin Phosphate/Dextrose (Cleocin Iv/ Dextrose Add-[place] 50ML) 54 ml @ 100 mls/hr Q6H IV 10/30/16 16:00 11/06/16 15:59 11/01/16 03:45 100 MLS/HR Digoxin (Lanoxin Tab) 0.125 mg DAILY@1600 PO 10/30/16 16:00 11/29/16 15:59 10/31/16 16:11 0.125 MG Fluticasone Propionate (Flonase Nasal [place]) 2 sprays QAM BRENDA 10/30/16 09:00 11/29/16 08:59 11/01/16 08:03 2 SPRAYS Montelukast Sodium (Singulair Tab) 10 mg QAM PRN PO 10/30/16 09:00 11/29/16 08:59 10/31/16 07:33 10 MG Warfarin Sodium (Coumadin Tab) 2 mg SuTuWeThFrSa@1600 PO 10/30/16 16:00 11/29/16 15:59 10/31/16 16:12 2 MG Miscellaneous Information (Order Awaiting Action) 1 ea QS N/A 10/30/16 16:00 11/29/16 15:59 Levalbuterol (Xopenex 1.25MG/ 0.5ML Neb) 1.25 mg Q6R INH 10/30/16 15:00 11/29/16 14:59 11/01/16 06:59 1.25 MG Warfarin Sodium (Coumadin Tab) 1 mg Mo@1600 PO 11/01/16 16:00 12/01/16 15:59 Sotalol HCl 240 mg 240 mg BID PO 10/30/16 12:30 11/29/16 12:29 11/01/16 08:03 240 MG Levofloxacin/Prmx (Levaquin / D5W/ Premixed D5W) 150 ml @ 100 mls/hr Q24H IV 10/31/16 10:00 11/07/16 09:59 10/31/16 11:05 100 MLS/HR Metoprolol Tartrate (Lopressor Iv) 5 mg Q4 PRN IV 10/31/16 17:15 11/30/16 17:14 Objective Vital Signs Date Time Temp Pulse Resp B/P Pulse Ox O2 Delivery O2 Flow Rate FiO2 11/01/16 07:55 36.6 89 17 97/61 96 Room Air 11/01/16 06:59 69 16 95 Room Air 11/01/16 04:07 36.8 69 20 109/63 95 Room Air 11/01/16 04:00 Room Air 11/01/16 02:21 66 14 93 Room Air 10/31/16 23:58 Room Air 10/31/16 23:19 37.0 68 20 98/65 94 Room Air 10/31/16 20:00 Room Air 10/31/16 19:47 36.9 110 20 100/81 95 Room Air 10/31/16 18:52 110 16 96 Room Air 10/31/16 16:14 37.0 108 20 122/87 97 Room Air 10/31/16 16:11 104 10/31/16 16:00 95 Room Air 10/31/16 14:00 83 16 96 Room Air 10/31/16 12:01 37.7 103 20 101/79 94 Room Air 10/31/16 12:00 95 Nasal Cannula 2.0 Physical Exam General Appearance: no apparent distress, + obese Respiratory/Chest: chest non-tender, lungs clear, normal breath sounds, no respiratory distress, no accessory muscle use Cardiovascular: regular rate, rhythm, no edema, no murmur Abdomen: normal bowel sounds, non tender, soft Extremities: normal range of motion, no pedal edema, no calf tenderness, + pertinent finding (erythematous, warm to touch, tenderness to palpation) Neurologic/Psychiatric: no motor/sensory deficits, alert, normal mood/affect Laboratory Results Last 24 Hours Test 11/01/16 05:42 White Blood Count 7.95 K/uL Red Blood Count 3.69 M/uL Hemoglobin 12.5 g/dL Hematocrit 36.6 % Mean Corpuscular Volume 99.2 fL Mean Corpuscular Hemoglobin 33.9 pg Mean Corpuscular Hemoglobin Concent 34.2 g/dl RDW Standard Deviation 49.1 fL RDW Coefficient of Variation 13.6 % Platelet Count 131 K/uL Mean Platelet Volume 10.1 fL Prothrombin Time 24.4 SECONDS Prothromb Time International Ratio 2.2 Sodium Level 140 mmol/L Potassium Level 3.6 mmol/L Chloride Level 107 mmol/L Carbon Dioxide Level 27 mmol/L Anion Gap 6.0 mmol/L Blood Urea Nitrogen 13 mg/dl Creatinine 0.68 mg/dl Est Creatinine Clear Calc Drug Dose 125.8 ml/min Estimated GFR () 105.6 Estimated GFR (Non- 91.2 BUN/Creatinine Ratio 18.6 Random Glucose 112 mg/dl Calcium Level 7.9 mg/dl Magnesium Level 2.1 mg/dl Assessment and Plan This is a 66 year old obese female with a PMH of multiple PEs on Coumadin, atrial fibrillation on sotalol & digoxin, sarcoid lung, moderate persistent asthma presents to the ER due to chills/rigors Sepsis possibly secondary to CAP vs. UTI 11/01 will continue Levaquin + Clindamycin EKG shows no worsening of QTc WBC resolved lactic acidosis normalized blood culture no growth to date can likely switch to PO Levaquin and Clindamycin on discharge, possible discharge home in 1-2 days 10/31 clinically she feels about the same, significant chills, sweats, weakness spiking fevers at night WBC trending down, lactic acid normalized will keep Clindamycin and add Levaquin to the regimen cut IVF rate to 80mL/hr CXR from this morning shows no consolidation or infiltrate to suggest pneumonia , though clinically, possibly a pneumonia UA positive leuks and +2 bacteria, urine culture, blood cultures pending 10/30 CXR Cardiomegaly with no acute cardiopulmonary abnormality noted to have leukocytosis, lactic acidosis, fever, tachycardia, meets sepsis criteria Unsure the source, though patient noted she had vomiting with chills/rigors and likely aspirated on vomitus will treat aspiration pneumonia - noted penicillin allergy; will start Clindamycin 600mg q8 blood cultures pending will give IVFs and recheck lactic acid Tylenol PRN for fevers will recheck CXR in AM check urinalysis monitor in tele Hx. of Multiple PEs continue Coumadin INR = 2.0 A. Fib 11/01 back to normal sinus rhythm continue home meds appreciate cardiology input 10/31 HRs have improved with IVFs continue sotalol and digoxin 10/30 currently in sinus rhythm tachycardic, likely from dehydration + infection will give IVFs, monitor in tele continue digoxin + sotalol Prolonged QTc >500 on current EKG will recheck EKG in AM avoid prolonging agents; will continue Sotalol Sarcoid Lung continue inhalers nebs as needed DVT ppx Coumadin FULL CODE
[2016-11-01] MEDS: LEVOFLOXACIN / D5W 750 MG in PREMIXED IN D5W 150 ML IV SCH (11:35)
--- NOTE | 2016-11-01 12:10 | CARDIOLOGY PROGRESS NOTE ---
DATE: 11/01/2016 TIME: 11:34 a.m. SUBJECTIVE: She feels much better overall. She denies any further fevers or chills. She was asymptomatic with atrial fibrillation; however, now she thinks she may have felt too small "flips." She converted to sinus rhythm last night at 2316 p.m. She continues to have left lower leg pain where the site of a cellulitis is present. She denies chest pain, shortness of breath, syncope, near syncope. She also denies bleeding. OBJECTIVE: VITAL SIGNS: Temperature 36.6 degrees, heart rate 89 beats per minute, respiration rate 17, blood pressure 97/61 mmHg, oxygen saturation 96% on room air. I's and O's positive 1.2 liters yesterday. Weight 149 kg. GENERAL: No acute distress. She is alert and oriented. NECK: Thick. CARDIAC: No ventricular heave. Regular, normal S1, S2. No audible murmurs, rubs or gallops. LUNGS: Clear to auscultation bilaterally without wheezes, rales or rhonchi. ABDOMEN: Obese, soft, nontender, nondistended, normoactive bowel sounds, no bruits noted. EXTREMITIES: Erythema on the left distal lower extremity is still present but appears improved. No significant pitting edema. No cyanosis. PSYCHIATRIC: Affect appears appropriate. MEDICATIONS: Include aspirin 81 mg daily, clindamycin 600 mg IV q. 6 hours, digoxin 0.125 mg p.o. daily, sotalol 240 mg p.o. b.i.d., levofloxacin 750 mg IV q. 24 hours; metoprolol tartrate 5 mg IV p.r.n. for tachycardia of heart rate greater than 120, however, she has not received a dose; Singulair 10 mg daily, normal saline 80 mL per hour, Coumadin 1 mg on Tuesday, otherwise 2 mg all other days. LABORATORY DATA: White blood cell count of 7.95 down from 12.58, hemoglobin 12.5, platelets 131. INR 2.2. Sodium 140, potassium 3.6, BUN 13, creatinine 0.68, magnesium 2.1. IMAGING DATA: ECG personally reviewed from 11/01/2016 at 6:39 a.m. Normal sinus rhythm at 68 beats per minute, right bundle branch block, left anterior fascicular block. The QT interval is acceptable. Telemetry personally reviewed. No arrhythmia since 23:16 when she converted to sinus rhythm. She was in atrial fibrillation before that. ASSESSMENT AND PLAN: 1. Atrial fibrillation: She has paroxysmal atrial fibrillation and converted overnight. Continue home dose of sotalol. Monitor QT interval periodically. Continue digoxin as per her outpatient cardiology regimen. Continue p.r.n., metoprolol if need be for elevated heart rates as ordered. Current QT interval is acceptable. Continue anticoagulation for stroke risk reduction. INR continues to be therapeutic. 2. Cellulitis and concern for urinary tract infection: Treatment as per primary service. 3. Disposition: Cardiology care will resume tomorrow by her primary fruit packer, Dr. Jeff Schneider. Please call for any further questions or concerns.
[2016-11-01] MEDS ORDERED: LEVALBUTEROL 1.25MG/0.5ML NEB INH PRN (14:45)
[2016-11-01] MEDS ORDERED: WARFARIN SOD 1 MG TAB PO SCH (16:00)
[2016-11-01] MEDS: DIGOXIN 0.125 MG TAB PO SCH (16:11)
[2016-11-01] MEDS: LEValbuterol HFA 15GM INHALER INH SCH (20:32)
[2016-11-02] VITALS (7 sets, daily range): BP systolic 104–128; BP diastolic 58–75; PULSE 62–68; TEMP 36.9–37.1; O2SAT 95–96
[2016-11-02] MEDS: ACETAMINOPHEN 325 MG TAB PO PRN ×3 (00:31→12:29)
[2016-11-02] MEDS: CLINDAMYCIN IV 600 MG in DEXTROSE 5% ADD-VANTAGE 50ML 50 ML IV SCH ×2 (04:12→09:30)
[2016-11-02] MEDS: SODIUM CHLORIDE 0.9% 1000ML 1,000 ML IV SCH (04:14)
[2016-11-02] MEDS: LEValbuterol HFA 15GM INHALER INH SCH ×2 (05:44)
[2016-11-02 06:43] LABS: HEMATOCRIT 38.6 % (37-47); MEAN CELL VOLUME 97.5 fL (80-100); MEAN CORPUSCULAR HEMOGLOBIN 32.8 pg (25-34); MEAN CORPUSCULAR HGB CONC 33.7 g/dl (32-36); PLATELET COUNT 170 K/uL (130-400); RED BLOOD COUNT 3.96 M/uL (4.2-5.4); WHITE BLOOD COUNT 6.95 K/uL (4.8-10.8)
[2016-11-02 07:18] LABS: BUN/CREATININE RATIO 17.8 (10-20); CALCIUM 8.2 mg/dl (8.5-10.1); CREATININE 0.71 mg/dl (0.60-1.20); POTASSIUM 3.9 mmol/L (3.5-5.1)
[2016-11-02] MEDS: SOTALOL HCL 80 MG TAB PO SCH (09:09)
[2016-11-02] MEDS: FLUTICASONE PROPIONATE NA SPR 16 GM BTL NAE SCH (09:09)
[2016-11-02] MEDS: ASPIRIN 81 MG ECTAB PO SCH (09:09)
[2016-11-02] MEDS: LEVOFLOXACIN / D5W 750 MG in PREMIXED IN D5W 150 ML IV SCH (10:26)
--- NOTE | 2016-11-02 10:36 | Progress Note ---
Subjective Date of Service: November 02, 2016. Subjective Pt evaluation today including: conversation w/ patient, physical exam, lab review, review of studies, review of inpatient medication list Saw/examined the patient in room 207 She's doing well; No shortness of breath, no chest pain R LE erythema is improving Review of Systems Constitutional: No chills, No fever, No weakness Respiratory: No shortness of breath Cardiac: + edema, No chest pain, No palpitations Abdomen: No diarrhea, No nausea, No pain, No vomiting Musculoskeletal: + muscle pain (L LE muscle pain) Heme: No abnormal bleeding/bruising Objective Vital Signs Date Time Temp Pulse Resp B/P Pulse Ox O2 Delivery O2 Flow Rate FiO2 11/02/16 07:41 37.1 68 16 128/73 96 Room Air 11/02/16 04:10 36.9 65 18 104/58 95 Room Air 11/02/16 04:00 95 Room Air 11/02/16 00:01 95 Room Air 11/01/16 23:47 36.6 70 26 144/55 97 Room Air 11/01/16 20:00 Room Air 11/01/16 19:44 37.0 73 18 148/70 95 11/01/16 16:11 66 11/01/16 16:00 Room Air 11/01/16 15:23 37.0 66 18 107/59 96 Room Air 11/01/16 14:30 65 16 95 Room Air 11/01/16 12:03 36.5 85 17 113/66 96 Room Air 11/01/16 12:00 Room Air Physical Exam General Appearance: no apparent distress Respiratory/Chest: chest non-tender, lungs clear, normal breath sounds, no respiratory distress, no accessory muscle use Cardiovascular: regular rate, rhythm, no edema, no gallop, no JVD, no murmur Abdomen: normal bowel sounds, non tender, soft Extremities: + pertinent finding (erythematous L LE; improving, only mildly warm now, improved coloration) Laboratory Results Last 24 Hours Test 11/02/16 06:00 White Blood Count 6.95 K/uL Red Blood Count 3.96 M/uL Hemoglobin 13.0 g/dL Hematocrit 38.6 % Mean Corpuscular Volume 97.5 fL Mean Corpuscular Hemoglobin 32.8 pg Mean Corpuscular Hemoglobin Concent 33.7 g/dl RDW Standard Deviation 47.3 fL RDW Coefficient of Variation 13.3 % Platelet Count 170 K/uL Mean Platelet Volume 10.0 fL Sodium Level 142 mmol/L Potassium Level 3.9 mmol/L Chloride Level 108 mmol/L Carbon Dioxide Level 27 mmol/L Anion Gap 7.0 mmol/L Blood Urea Nitrogen 13 mg/dl Creatinine 0.71 mg/dl Est Creatinine Clear Calc Drug Dose 120.5 ml/min Estimated GFR () 102.9 Estimated GFR (Non- 88.8 BUN/Creatinine Ratio 17.8 Random Glucose 104 mg/dl Calcium Level 8.2 mg/dl Assessment and Plan This is a 66 year old obese female with a PMH of multiple PEs on Coumadin, atrial fibrillation on sotalol & digoxin, sarcoid lung, moderate persistent asthma presents to the ER due to chills/rigors Sepsis possibly secondary to CAP vs. UTI 11/02 she is feeling well, afebrile, no leukocytosis, no lactic acidosis, vitals stable she is feeling well d/c on Levaquin and Clindamycin PO x7 days to total 10 days 11/01 will continue Levaquin + Clindamycin EKG shows no worsening of QTc WBC resolved lactic acidosis normalized blood culture no growth to date can likely switch to PO Levaquin and Clindamycin on discharge, possible discharge home in 1-2 days 10/31 clinically she feels about the same, significant chills, sweats, weakness spiking fevers at night WBC trending down, lactic acid normalized will keep Clindamycin and add Levaquin to the regimen cut IVF rate to 80mL/hr CXR from this morning shows no consolidation or infiltrate to suggest pneumonia , though clinically, possibly a pneumonia UA positive leuks and +2 bacteria, urine culture, blood cultures pending 10/30 CXR Cardiomegaly with no acute cardiopulmonary abnormality noted to have leukocytosis, lactic acidosis, fever, tachycardia, meets sepsis criteria Unsure the source, though patient noted she had vomiting with chills/rigors and likely aspirated on vomitus will treat aspiration pneumonia - noted penicillin allergy; will start Clindamycin 600mg q8 blood cultures pending will give IVFs and recheck lactic acid Tylenol PRN for fevers will recheck CXR in AM check urinalysis monitor in tele Hx. of Multiple PEs continue Coumadin INR = 2.0 A. Fib 11/01 back to normal sinus rhythm continue home meds appreciate cardiology input 10/31 HRs have improved with IVFs continue sotalol and digoxin 10/30 currently in sinus rhythm tachycardic, likely from dehydration + infection will give IVFs, monitor in tele continue digoxin + sotalol Prolonged QTc >500 on current EKG will recheck EKG in AM avoid prolonging agents; will continue Sotalol Sarcoid Lung continue inhalers nebs as needed DVT ppx Coumadin FULL CODE
[2016-11-02] MEDS ORDERED: LVQ750 PO (10:41)
[2016-11-02] MEDS ORDERED: CLC150 PO (10:41)
[2016-11-02] MEDS ORDERED: LCTX PO (10:44)
--- NOTE | 2016-11-02 10:45 | Discharge Instructions ---
Discharge Instructions Date of Service November 02, 2016. Admission Reason for Admission: Aspiration Into Respiratory Tract; Sepsis Discharge Discharge Diagnosis / Problem: Sepsis secondary to aspiration pneumonia and R lower extremity cellulitis Discharge Goals Goal(s): Decrease discomfort, Improve function, Diagnostic testing, Therapeutic intervention Activity Recommendations Activity Limitations: resume your previous activity . Instructions / Follow-Up Instructions / Follow-Up Please follow-up with Dr. Collins on November 05 at 12:45PM You will be discharged with Levaquin and clindamycin for 7 more days, take as prescribed You should take pro-biotics Take ibuprofen, Motrin, or Aleve in the short term for the pain in the lower extremity Current Hospital Diet Patient's current hospital diet: AHA Diet (Heart Healthy) Discharge Diet Recommended Diet: AHA Diet (Heart Healthy), Diabetes Type 2 Diet Pending Studies Studies pending at discharge: no Medical Emergencies . Who to Call and When: Medical Emergencies: If at any time you feel your situation is an emergency, please call 911 immediately. . Non-Emergent Contact Non-Emergency issues call your: Primary Care Provider Call Non-Emergent contact if: you have a fever, your pain is not controlled, your pain is worsening, your pain is concerning you . . "Provider Documentation" section prepared by Hamlet Rodriguez. . VTE Core Measure Inpt VTE Proph given/why not?: Warfarin (Coumadin)
--- NOTE | 2016-11-02 10:47 | Discharge Summary ---
Discharge Summary Date of Service November 02, 2016. Discharge Summary Admission Date: October 30, 2016 at 08:50 Discharge Date: November 02, 2016 Discharge Disposition: Home Principal Diagnosis: Sepsis secondary to Aspiration Pneumonia and Cellulitis of the Lower Extremity Medication Reconciliation New Medications: Clindamycin HCl (Clindamycin HCl) 150 Mg Cap 300 MG PO Q6 for 7 Days, #56 CAP Lactobacillus Acidophilus (Lactinex) Tab 1 TAB PO DAILY for 7 Days, #7 TAB Levofloxacin (Levofloxacin) 750 Mg Tab 750 MG PO DAILY for 7 Days, #7 TABS Continued Medications: Cholecalciferol (Vitamin D-3) 2,000 Unit Tab 4000 MG PO QAM Digoxin (Digoxin) 0.125 Mg Tab 1 TAB PO QPM Enoxaparin (Lovenox) 30 Mg/0.3 Ml Inj 20 MG SQ DAILY for procedures, SYR Fenofibrate (Tricor) 200 Mg Cap 200 MG PO QAM, CAP Fluticasone Propionate (Nasal) (Flonase Allergy Relief) 50 Mcg/Act Spr 2 SPRAYS BRENDA QAM Metformin Hcl (Glucophage) 500 Mg Tab 500 MG PO TID, TAB Metoprolol Tartrate (Lopressor) 50 Mg Tab 50 MG PO PRN UD for A-FIB, TAB Mometasone Furoate-Formoterol (Dulera 100/5 Mcg) 1 Aer Aer 2 PUFFS INH BID Montelukast Sodium (Singulair) 10 Mg Tab 10 MG PO QAM PRN for ALLERGIC REACTION, TAB Multiple Vitamins W/ Minerals (Centrum Silver Ultra Wome) 1 Tab Tab 1 TAB PO QAM Sotalol Hcl (Sotalol Hcl) 160 Mg Tab 1.5 TAB PO BID Warfarin Sod (Coumadin) 2 Mg Tab 1 TAB PO 6XWK everyday except tuesday Warfarin Sodium (Coumadin) 1 Mg Tab 1 MG PO MON., TAB Admission Information HPI (per Admitting provider): This is a 66 year old obese female with a PMH of multiple PEs on Coumadin, atrial fibrillation on sotalol & digoxin, sarcoid lung, moderate persistent asthma presents to the ER due to chills overnight; states that she went to bed in her usual state of health and at about 2AM she developed sudden episode of chills, rigors, weakness. She tried taking medications; and she then developed nausea and multiple episodes of vomiting. She mentions that she felt as if she choked on some of her vomitus. There were no precipitating symptoms prior to this; the only other symptom was mentioned by the , who is at bedside who states that perhaps she was coughing prior to going to sleep. Denies dysuria , urinary frequency, no diarrhea, no chest pain; there was some shortness of breath involved after the vomiting episodes. No abdominal pain. Once in the ER, she had work-up performed; WBC noted to be elevated, lactic acid elevated, she developed a fever - was given antibiotics, fluids, Tylenol - she feels slightly better, but chills persist. Physical Exam (per Admitting): General Appearance: + mild distress (zetd-ea-febdtioi distress; chills/ rigors noted during exam), + obese Head: normocephalic, atraumatic Eyes: normal inspection ENT: hearing grossly normal Neck: supple Respiratory/Chest: no respiratory distress, no accessory muscle use, + decreased breath sounds, + pertinent finding (no wheezing, no rhonchi) Cardiovascular: no edema, no gallop, no JVD, no murmur, normal peripheral pulses, + tachycardia Abdomen/GI: normal bowel sounds, non tender, soft, no organomegaly Extremities/Musculoskelatal: normal inspection, no calf tenderness, normal capillary refill, no pedal edema, normal range of motion 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 UTI 11/02 she is feeling well, afebrile, no leukocytosis, no lactic acidosis, vitals stable she is feeling well d/c on Levaquin and Clindamycin PO x7 days to total 10 days 11/01 will continue Levaquin + Clindamycin EKG shows no worsening of QTc WBC resolved lactic acidosis normalized blood culture no growth to date can likely switch to PO Levaquin and Clindamycin on discharge, possible discharge home in 1-2 days 10/31 clinically she feels about the same, significant chills, sweats, weakness spiking fevers at night WBC trending down, lactic acid normalized will keep Clindamycin and add Levaquin to the regimen cut IVF rate to 80mL/hr CXR from this morning shows no consolidation or infiltrate to suggest pneumonia , though clinically, possibly a pneumonia UA positive leuks and +2 bacteria, urine culture, blood cultures pending 10/30 CXR Cardiomegaly with no acute cardiopulmonary abnormality noted to have leukocytosis, lactic acidosis, fever, tachycardia, meets sepsis criteria Unsure the source, though patient noted she had vomiting with chills/rigors and likely aspirated on vomitus will treat aspiration pneumonia - noted penicillin allergy; will start Clindamycin 600mg q8 blood cultures pending will give IVFs and recheck lactic acid Tylenol PRN for fevers will recheck CXR in AM check urinalysis monitor in tele Hx. of Multiple PEs continue Coumadin INR = 2.0 A. Fib 11/01 back to normal sinus rhythm continue home meds appreciate cardiology input 10/31 HRs have improved with IVFs continue sotalol and digoxin 10/30 currently in sinus rhythm tachycardic, likely from dehydration + infection will give IVFs, monitor in tele continue digoxin + sotalol Prolonged QTc >500 on current EKG will recheck EKG in AM avoid prolonging agents; will continue Sotalol Sarcoid Lung continue inhalers nebs as needed DVT ppx Coumadin FULL CODE Total time spent on discharge = 40 minutes This includes examination of the patient, discharge planning, medication reconciliation, and communication with other providers. Discharge Instructions Please follow-up with Dr. Collins on November 05 at 12:45PM You will be discharged with Levaquin and clindamycin for 7 more days, take as prescribed You should take pro-biotics Take ibuprofen, Motrin, or Aleve in the short term for the pain in the lower extremity
--- NOTE | 2016-11-02 11:19 | CARDIOLOGY PROGRESS NOTE ---
DATE: 11/02/2016 DATE: 11/02/2016. SUBJECTIVE: Mrs. Toscano is resting comfortably in bedside chair without complaints of chest pain, dyspnea, or palpitations. OBJECTIVE: VITAL SIGNS: Blood pressure 128/73 with a regular pulse of 60. Respiratory rate is 16. The patient is afebrile at 37.1 degrees Celsius. Saturations 96% on room air. NECK: Supple with full carotid upstrokes. There are no carotid bruits. Jugular venous pressure is flat at 90 degrees. There is no thyromegaly. CARDIOVASCULAR EXAMINATION: Reveals a regular rhythm with normal S1 and S2. No S3, S4, or murmurs are noted. LUNGS: Clear without rales, rhonchi, or wheezes. ABDOMEN: Obese without bruits. EXTREMITIES: Reveal intact radial artery pulses bilaterally. There is an erythematous patches noted in the distal left lower extremity. Trace pretibial edema is noted. LABORATORY DATA: CBC notes a hemoglobin of 13.0, hematocrit 38.6, white count 6.9, platelet count 170,000. Electrolytes note a sodium of 142, potassium of 3.9, chloride 108, bicarb 27, BUN 13, creatinine 0.7, glucose 104. TSH level is 1.08. Troponin I levels were undetectable at less than 0.015. site monitor notes normal sinus rhythm with an occasional PAC. IMPRESSION AND PLAN: 1. Paroxysmal atrial fibrillation -- the patient converted spontaneously. Continues on sotalol as her antiarrhythmic. Also, remains on therapeutic Coumadin for thromboembolic protection. 2. Right bundle branch block -- stable. 3. Left lower extremity cellulitis -- per primary care team. 4. History of pulmonary emboli -- 30 years ago. 5. Pulmonary sarcoidosis. 6. Asthma. 7. Hyperglycemia. 8. Disposition -- stable for hospital discharge from a cardiac perspective. [facility]OSPITALDanyell
== END 2016-11-02 12:38 | disposition home or self-care (01) | DRG 871 ==
LOC: ENRESERVTM → ENRESERVDT → C.EDB 06:51 → C.2E 08:50
PROVIDERS: ADMIT Family Medicine; ATTEND Family Medicine
DX: A41.9 Sepsis, unspecified organism (principal); J69.0 Pneumonitis due to inhalation of food and vomit; Z68.43 Body mass index [BMI] 50.0-59.9, adult; L03.116 Cellulitis of left lower limb; E86.0 Dehydration; I48.0 Paroxysmal atrial fibrillation; I45.81 Long QT syndrome; I45.10 Unspecified right bundle-branch block; D86.0 Sarcoidosis of lung; J45.40 Moderate persistent asthma, uncomplicated; E66.9 Obesity, unspecified; Z86.711 Personal history of pulmonary embolism; Z79.01 Long term (current) use of anticoagulants; Z79.84 Long term (current) use of oral hypoglycemic drugs; Z79.51 Long term (current) use of inhaled steroids; Z79.899 Other long term (current) drug therapy

== ENCOUNTER → 2017-05-06 | Outpatient (CLI) | payer OTHER, MEDICARE ==
[~2017-05-06] MED LIST changes: +CLC150 PO; -DIGO0.122 PO; -FLNIN NAE; +FLUT0.15 NAE; +LNX125 PO; +LVQ750 PO
== END | disposition home or self-care (01) ==
LOC: C.LABMFLN 07:52
PROVIDERS: ATTEND Internal Medicine Cardiovascular Disease
DX: I48.91 Unspecified atrial fibrillation (principal); R07.9 Chest pain, unspecified

== ENCOUNTER 2019-12-05 10:18 | Inpatient (IN) ==
[2019-12-05] MEDS ORDERED: SODIUM CHLORIDE 0.9% 500 ML IV SCH (11:00)
[2019-12-05 11:13] LABS: Basophils # (auto) 0.02 K/uL (0-0.2); Basophils % (auto) 0.3 %; Eosinophils # (auto) 0.19 K/uL (0-0.5); Eosinophils % (auto) 2.7 %; Hemoglobin 13.4 g/dL (12.0-16.0); Immature Granulocytes # (auto) 0.02 K/uL (0.00-0.02); Immature Granulocytes % (auto) 0.3 %; Lymphocytes # (auto) 0.95 K/uL (1.2-3.4); Lymphocytes % (auto) 13.5 %; Mean Corpuscular Hemoglobin 31.2 pg (25-34); Mean Corpuscular Hgb Conc 33.5 g/dL (32-36); Mean Platelet Volume 10.4 fL (7.4-10.4); Monocytes # (auto) 0.96 K/uL (0.11-0.59); Monocytes % (auto) 13.6 %; Neutrophils # (auto) 4.92 K/uL (1.4-6.5); Neutrophils % (auto) 69.6 %; Platelet Count 242 K/uL (130-400); RDW Coefficient of Variation 14.3 % (11.5-14.5); RDW Standard Deviation 48.3 fL (36.4-46.3); White Blood Count 7.06 K/uL (4.8-10.8)
--- NOTE | 2019-12-05 11:13 | Emergency Department Note ---
Impression & Plan Heart block AV third degree, Near syncope, Weakness ED Provider Note NAME: PHILIP KRUEGER AGE: 69 SEX: F : 1950 ARRIVES VIA: Walk-In INFORMANT: Patient, ED PROVIDER(S): Jeff Benavidez DO CHIEF COMPLAINT: Palpitations HPI: The patient is a 69-year-old female who presented to the emergency department for exertional dyspnea and generalized weakness. The patient states that she has a history of atrial fibrillation. She has had some increases in her sotalol dosing over the last few months but no acute increases recently. The patient has not noticed any chest pain. She has noticed slight swelling in her lower extremities. She denies having any nausea or vomiting. She denies having any recent traveling. She also takes blood thinners for history of pulmonary venous thromboembolic disease as well as atrial fibrillation. The patient called her primary care physician for an appointment. She got a return phone call from the nursing staff who told the patient given her symptoms she should go to the emergency department. The patient does not have a pacemaker. She was told one time she may need a pacemaker because of atrial fibrillation but it was not felt to be needed at that time. She states her symptoms are significantly improved with rest. ROS: See above HPI for pertinent positives & negatives. A total of 10 systems reviewed and were otherwise negative. PAST MEDICAL HISTORY: See Below PAST SURGICAL HISTORY: See Below FAMILY HISTORY: See Below SOCIAL HISTORY: See Below HOME MEDICATIONS: See Below ALLERGIES: See Below VITALS: See Below PHYSICAL EXAMINATION: GENERAL: Patient is awake alert in no acute distress patient is resting comfortably and showing no signs of anxiety EYES: The conjunctivae are clear. The pupils are round and reactive. EARS, NOSE, MOUTH AND THROAT: The nose is without any evidence of any deformity. Mucous membranes are moist. Tongue is midline. NECK: The neck is nontender and supple. RESPIRATORY: Normal respiratory effort is noted there is no evidence of wheezing rhonchi or rales CARDIOVASCULAR: Irregular rhythm was noted to auscultation. There was no murmur. GASTROINTESTINAL: The abdomen is soft. Abdomen is nontender. MUSCULOSKELETAL/EXTREMITIES: There is no evidence of gross deformity full range of motion is noted in the hips and shoulders. SKIN: There is no obvious evidence of any rash. Trace pedal edema was noted bilaterally. NEUROLOGIC: Patient is awake alert and oriented x3 strength was symmetric. MEDICAL DECISION MAKING: The patient is a 69-year-old female who has a history of paroxysmal atrial fibrillation who presented to the emergency department with weakness. The p atient states that she started noticing over the last few weeks that anytime she tried to walk she would get very weak and almost felt as though she was going to pass out. The patient called her primary care physician and was instead referred to the emergency department. Upon arrival she was found to be in third-degree heart block. The patient currently takes sotalol as well as metoprolol and digoxin. The patient was treated with IV fluids. She was observed in the emergency department. Ultimately she was found to be in normal sinus rhythm on final reevaluation. I discussed the patient's laboratory and radiographic studies with her. I also discussed her case with her primary councilman. Given the patient's findings and her ongoing symptoms we did feel that it may be prudent for the patient to stay in the hospital for formal evaluation of pacemaker given her dysrhythmia found initially. I discussed this with the patient and she was agreeable. [facility] Triage Nursing notes reviewed. Prior medical records reviewed Vital Signs: reviewed and remarkable for bradycardia Differential diagnosis: Infection, dehydration, metabolic abnormality, hypo/hyperglycemia, electrolyte disturbance, anemia, hypoxia, cardiac sources, intracerebral event, toxicologic, neurologic, as well as other pathologies. ER treatment provided: See below Diagnostics interpreted by me: ECG: EKG was obtained in the emergency department. My interpretation is third- degree heart block at 56 bpm. There was no ectopy. Right bundle branch block pattern was noted. This was compared to a tracing from May 18, 2018. Third-degree heart block has replaced sinus rhythm. Cardiac Monitoring: An order was placed for continuous cardiac monitoring. The monitor shows a rate of 65 with third-degree heart block Laboratory studies: As stated above and show below. Imaging studies: See below Consultation(s): 1250: I discussed this case with Dr. Schneider who was the patient's primary councilman. At this time he recommends we stop the patient's metoprolol, Coumadin and digoxin. The patient will be considered for pacemaker placement. 1310: I discussed this case with Viki who [facility] She is agreed to evaluate the patient in the emergency department for further management and disposition. Past Med/Surg History Medical History (Updated 12/05/19 @ 14:16 by Viki Lema PA-C) Atrial fibrillation (Chronic) Hemochromatosis associated with mutation in HFE gene History of pulmonary embolus (PE) 1996 and 2000 requiring long-term anticoagulation HTN (hypertension) Prediabetes Pulmonary embolism (Chronic) Sarcoidosis of lung (Chronic) Surgical History History of appendectomy History of laparoscopic cholecystectomy History of partial hysterectomy History of right knee joint replacement History of total left hip replacement History of tubal ligation Family History (Updated 12/05/19 @ 14:01 by Viki Lema PA-C) Aunt Breast cancer Mother Alzheimer disease Father Lung cancer Social History (Updated 12/05/19 @ 14:01 by Viki Lema PA-C) Preferred Language: Romansh Communication Ability: Effective marital status: Current Living Situation: Spouse Feels Safe at Home: Yes Smoking Status: Never smoker Hx Alcohol Use: Yes Alcohol Intake Frequency: Holidays/Special Occasions Allergies Allergies Allergy/AdvReac Type Severity Reaction Status Date / Time Penicillins Allergy Unknown RASH ALL Verified 12/05/19 11:27 OVER Sulfa (Sulfonamide Allergy Unknown STOMACH Verified 12/05/19 11:27 Antibiotics) ACHES erythromycin base AdvReac Unknown STOMACH Verified 12/05/19 11:27 ACHES loratadine AdvReac Unknown HEART RACE Verified 12/05/19 11:27 morphine AdvReac Unknown INTOLERANT Verified 12/05/19 11:27 pseudoephedrine AdvReac Unknown INTOLERANT Verified 12/05/19 11:27 Home Meds Home Medications Medication Instructions Recorded Confirmed albuterol sulfate 90 mcg/actuation 2 puffs INH QID PRN 02/08/19 12/05/19 aerosol inhaler cholecalciferol (vitamin D3) 25 1,000 units PO QAM 02/08/19 12/05/19 mcg (1,000 unit) capsule fluticasone propionate 50 1 sprays INTNAS DAILY PRN 02/08/19 12/05/19 mcg/actuation nasal spray,suspension krill 1 cap PO QAM 02/08/19 12/05/19 [id number]-bb-3-vtz-jlt-vsfeywpovfcfv 300 mg-90 mg-24 mg-50 mg capsule metformin 500 mg tablet 500 mg PO BID 02/08/19 12/05/19 metoprolol tartrate 50 mg tablet 50 mg PO DIRECTED PRN tab 02/08/19 12/05/19 mometasone-formoterol HFA 100 2 puffs INH DIRECTED PRN 02/08/19 12/05/19 mcg-5 mcg/actuation aerosol inhaler montelukast 10 mg tablet 10 mg PO QPM 02/08/19 12/05/19 rtfkqlekyuzt-bxridqko-wsvwnj 1 tab PO QAM 02/08/19 12/05/19 vitamins A,C,H-agdl-mxnhdq 7,160 1 tab PO QAM tab 02/08/19 12/05/19 unit-113 mg-100 unit tablet digoxin 125 mcg PO PM 12/05/19 12/05/19 turmeric 400 mg PO QAM 12/05/19 12/05/19 warfarin [Coumadin] 1 - 2 mg PO PM 12/05/19 12/05/19 Previous Rx's Medication Instructions Recorded sotalol 160 mg tablet 240 mg PO BID #270 tab 08/22/19 Results & Data (ED) Vital Signs Vital Signs - 24 hr 12/05/19 10:35 12/05/19 11:06 12/05/19 11:38 Temperature 36.9 C Temperature Source Oral Pulse Rate 78 Pulse Rate [Apical] 73 Respiratory Rate 20 18 Respiratory Effort / Characteristics Non-Labored Spontaneous Respiratory Depth Normal Blood Pressure 127/62 Blood Pressure [Left Arm] 121/65 Blood Pressure Mean 83 Blood Pressure Mean [Left Arm] 83 Blood Pressure Position Sitting Pulse Oximetry 95 95 95 Oxygen Delivery Method Room Air Room Air Room Air Sepsis Recent Fever Within 48 Hours No Sepsis New/Unexplained Change in Mental Status No Sepsis Action Taken by Nursing No Action Required 12/05/19 13:41 Temperature Temperature Source Pulse Rate Pulse Rate [Apical] 73 Respiratory Rate 18 Respiratory Effort / Characteristics Respiratory Depth Blood Pressure Blood Pressure [Left Arm] 121/84 Blood Pressure Mean Blood Pressure Mean [Left Arm] 96 Blood Pressure Position Pulse Oximetry 96 Oxygen Delivery Method Room Air Sepsis Recent Fever Within 48 Hours Sepsis New/Unexplained Change in Mental Status Sepsis Action Taken by Residential Medications Current Medication List: was personally reviewed by me Laboratory Data Attestation: I reviewed the patient's lab results. Result diagrams: 12/05/19 11:03 12/05/19 11:03 Lab Results 12/05/19 12/05/19 12/05/19 Range/Units 11:03 11:03 11:03 WBC 7.06 (4.8-10.8) K/uL RBC 4.30 (4.2-5.4) M/uL Hgb 13.4 (12.0-16.0) g/dL Hct 40.0 (37-47) % MCV 93.0 (80-100) fL MCH 31.2 (25-34) pg MCHC 33.5 (32-36) g/dL RDW Std Deviation 48.3 H (36.4-46.3) fL RDW Coeff of Blanca 14.3 (11.5-14.5) % Plt Count 242 (130-400) K/uL MPV 10.4 (7.4-10.4) fL Immature Gran % (Auto) 0.3 % Neut % (Auto) 69.6 % Lymph % (Auto) 13.5 % [place] % (Auto) 13.6 % Eos % (Auto) 2.7 % Baso % (Auto) 0.3 % Neut # (Auto) 4.92 (1.4-6.5) K/uL Lymph # (Auto) 0.95 L (1.2-3.4) K/uL [place] # (Auto) 0.96 H (0.11-0.59) K/uL Eos # (Auto) 0.19 (0-0.5) K/uL Baso # (Auto) 0.02 (0-0.2) K/uL Immature Gran # (Auto) 0.02 (0.00-0.02) K/uL PT 27.3 H (9.0-12.0) Seconds INR 2.7 H (0.9-1.1) APTT 50.1 H* (21.0-31.0) Seconds PTT Ratio 1.8 Sodium 138 (136-145) mmol/L Potassium 4.1 (3.5-5.1) mmol/L Chloride 105 (98-107) mmol/L Carbon Dioxide 25 (21-32) mmol/L Anion Gap 8.0 (3-11) BUN 13 (7-18) mg/dl Creatinine 0.89 (0.6-1.2) mg/dl Est Cr Clr Drug Dosing 93.3 ml/min Est GFR ( Amer) 76.6 Est GFR (Non-Af Amer) 66.1 BUN/Creatinine Ratio 14.6 (10-20) Glucose 160 H (70-99) mg/dl Calcium 9.3 (8.5-10.1) mg/dl Magnesium 1.8 (1.8-2.4) mg/dl Total Bilirubin 0.5 (0.2-1) mg/dl AST 19 (15-37) U/L ALT 24 (12-78) U/L Alkaline Phosphatase 73 (45-117) U/L Troponin I < 0.015 (0-0.045) ng/ml Total Protein 7.4 (6.4-8.2) gm/dl Albumin 3.3 L (3.4-5.0) gm/dl Globulin 4.1 H (2.5-4.0) gm/dl Albumin/Globulin Ratio 0.8 L (0.9-2) TSH 2.430 (0.300-4.500) uIu/ml Digoxin (0.8-2.0) ng/ml Lyme Disease IgG Ab (Negative) Lyme Disease IgM Ab (Negative) 12/05/19 12/05/19 Range/Units 11:03 11:03 WBC (4.8-10.8) K/uL RBC (4.2-5.4) M/uL Hgb (12.0-16.0) g/dL Hct (37-47) % MCV (80-100) fL MCH (25-34) pg MCHC (32-36) g/dL RDW Std Deviation (36.4-46.3) fL RDW Coeff of Blanca (11.5-14.5) % Plt Count (130-400) K/uL MPV (7.4-10.4) fL Immature Gran % (Auto) % Neut % (Auto) % Lymph % (Auto) % [place] % (Auto) % Eos % (Auto) % Baso % (Auto) % Neut # (Auto) (1.4-6.5) K/uL Lymph # (Auto) (1.2-3.4) K/uL [place] # (Auto) (0.11-0.59) K/uL Eos # (Auto) (0-0.5) K/uL Baso # (Auto) (0-0.2) K/uL Immature Gran # (Auto) (0.00-0.02) K/uL PT (9.0-12.0) Seconds INR (0.9-1.1) APTT (21.0-31.0) Seconds PTT Ratio Sodium (136-145) mmol/L Potassium (3.5-5.1) mmol/L Chloride (98-107) mmol/L Carbon Dioxide (21-32) mmol/L Anion Gap (3-11) BUN (7-18) mg/dl Creatinine (0.6-1.2) mg/dl Est Cr Clr Drug Dosing ml/min Est GFR ( Amer) Est GFR (Non-Af Amer) BUN/Creatinine Ratio (10-20) Glucose (70-99) mg/dl Calcium (8.5-10.1) mg/dl Magnesium (1.8-2.4) mg/dl Total Bilirubin (0.2-1) mg/dl AST (15-37) U/L ALT (12-78) U/L Alkaline Phosphatase (45-117) U/L Troponin I (0-0.045) ng/ml Total Protein (6.4-8.2) gm/dl Albumin (3.4-5.0) gm/dl Globulin (2.5-4.0) gm/dl Albumin/Globulin Ratio (0.9-2) TSH (0.300-4.500) uIu/ml Digoxin 0.3 L (0.8-2.0) ng/ml Lyme Disease IgG Ab Negative (Negative) Lyme Disease IgM Ab Negative (Negative) Administered Medications Discontinued Medications Sodium Chloride (Nss) 500 mls @ 999 mls/hr IV .Q31M TA Stop: 12/05/19 11:30 Last Infusion: 12/05/19 11:42 Dose: 0 mls/hr Documented by: [id number] Admin: 12/05/19 11:09 Dose: 999 mls/hr Documented by: [id number] Imaging Data Radiologist's Impression: XR chest 1V portable CLINICAL HISTORY: weakness COMPARISON STUDY: Chest CT November 04, 2011. Chest radiograph October 30, 2016. FINDINGS: There is no pneumothorax or pleural effusion. There is no evidence for pulmonary edema. Bilateral hilar enlargement is unchanged and due to stable enlarged lymph nodes shown on prior CT. Mild cardiomegaly is unchanged. The appearance of the chest is unchanged. Mild lower lung interstitial thickening is similar to prior exam. IMPRESSION: No acute cardiopulmonary findings. No change in appearance of the chest. ACT 112: Negative or not required by law. Electronically signed by: John John M.D. 12/05/2019 12:58 PM Dictated: 12/05/19 1256 Transcribed: 12/05/19 1256 Blood Pressure Blood Pressure Findings: Normal blood pressure Discharge Plan Visit Data Chief Complaint: Arrhythmia/Palpitations Stated Complaint: SENT BY DR SCHNEIDER - [facility] Provider: Jeff Benavidez Discharge Problem: Heart block AV third degree, Near syncope, Weakness Patient Disposition: Being Evaluated by Hospitalist Condition: Good Forms Stand Alone Forms: [facility] Prescriptions Prescriptions: No Action metoprolol tartrate 50 mg tablet 50 mg PO DIRECTED PRN (Reason: AFIB) RF: 0 txqdrubceqey-ojjfogge-chzcwx tablet 1 tab PO QAM RF: 0 cholecalciferol (vitamin D3) 1,000 unit capsule 1,000 units PO QAM RF: 0 Dulera 100-5 mcg/actuation HFA aerosol inhaler 2 puffs INH DIRECTED PRN (Reason: Sob) RF: 0 metformin 500 mg tablet 500 mg PO BID RF: 0 fluticasone propionate [Children's Flonase Allergy Rlf] 50 mcg/actuation spray,suspension 1 sprays INTNAS DAILY PRN (Reason: seasonal allergies) RF: 0 gjhem-mjzvz-7-hek-yyw-hafbjo [krill oil] 079-84-92-50 mg capsule 1 cap PO QAM RF: 0 PreserVision AREDS 7,160-113-100 dobj-bt-pamg tablet 1 tab PO QAM RF: 0 montelukast [Singulair] 10 mg tablet 10 mg PO QPM RF: 0 albuterol sulfate [Ventolin HFA] 90 mcg/actuation HFA aerosol inhaler 2 puffs INH QID PRN (Reason: shortness of breath or wheezing) RF: 0 sotalol 160 mg tablet 240 mg PO BID Qty: 270 RF: 3 turmeric 400 mg Capsule 400 mg PO QAM RF: 0 warfarin [Coumadin] 2 mg tablet 1 - 2 mg PO PM RF: 0 digoxin 125 mcg (0.125 mg) tablet 125 mcg PO PM RF: 0 Referrals Referrals: Teresa De Paz MD [Primary Care Provider] -
[2019-12-05 11:31] LABS: Alanine Aminotransferase 24 U/L (12-78); Albumin Level 3.3 gm/dl (3.4-5.0); Aspartate Aminotransferase 19 U/L (15-37); BUN Creatinine Ratio 14.6 (10-20); Blood Urea Nitrogen 13 mg/dl (7-18); Calcium 9.3 mg/dl (8.5-10.1); Carbon Dioxide 25 mmol/L (21-32); Chloride 105 mmol/L (98-107); Creatinine Clr Calc Pharmacy 93.3 ml/min; Est GFR (African American) 76.6; Est GFR (Non-African American) 66.1; Glucose 160 mg/dl (70-99); Magnesium 1.8 mg/dl (1.8-2.4); Potassium 4.1 mmol/L (3.5-5.1); Sodium 138 mmol/L (136-145)
[2019-12-05 11:39] LABS: INR 2.7 (0.9-1.1); Partial Thromboplastin Ratio 1.8; Prothrombin Time 27.3 Seconds (9.0-12.0)
[2019-12-05 11:44] LABS: Partial Thromboplastin Time 50.1 Seconds (21.0-31.0)
[2019-12-05 11:48] LABS: Albumin Globulin Ratio 0.8 (0.9-2); Alkaline Phosphatase 73 U/L (45-117); Bilirubin,Total 0.5 mg/dl (0.2-1); Globulin 4.1 gm/dl (2.5-4.0); Total Protein 7.4 gm/dl (6.4-8.2)
[2019-12-05 12:12] LABS: Troponin I < 0.015 ng/ml (0-0.045)
[2019-12-05 12:43] LABS: Lyme Ab IgG w/WB Rflx Negative (Negative); Lyme Ab IgM w/WB Rflx Negative (Negative)
--- NOTE | 2019-12-05 13:00 | XRay Report ---
XR chest 1V portable CLINICAL HISTORY: weakness COMPARISON STUDY: Chest CT November 04, 2011. Chest radiograph October 30, 2016. FINDINGS: There is no pneumothorax or pleural effusion. There is no evidence for pulmonary edema. [place] ateral hilar enlargement is unchanged and due to stable enlarged lymph nodes shown on prior CT. Mild cardiomegaly is unchanged. The appearance of the chest is unchanged. Mild lower lung interstitial thi ckening is similar to prior exam. IMPRESSION: No acute cardiopulmonary findings. No change in appearance of the chest. ACT 112: Negative or not required by law. Electronically signed by: John John M.D. 12/05/2019 12:58 PM
--- NOTE | 2019-12-05 13:57 | History & Physical Report ---
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 In ED initial EKG revealed suspected third-degree AV block. Patient symptoms improved after administration of IV fluid and repeat EKG revealed normal sinus rhythm with bifascicular block. ER provider contacted paper cone machine tender who recommended inpatient admission and likely pacemaker placement. Lyme serology negative. Admit to PCU [facility] cardiology consulted Pacer pads at bedside Given 2 g IV mag sulfate due to mag of 1.8, keep > 2.0 hold sotalol, dig and warfarin at this time pt takes metoprolol prn for afib - will hold this as well (2) Prediabetes: A1c 6.1 05/2019 BSG 160 in ED Monitor accuchecks, ISS per protocol (3) History of pulmonary embolus (PE): hx of PE x 2 in 1996 and 2000 on intermediate anticoagulation INR therapeutic, repeat in a.m. Hold Coumadin for now until seen by cardiology due to likely pacemaker procedure (4) Sarcoidosis of lung: Follows pulmonology No acute exacerbation, inhalers as needed (5) Hemochromatosis associated with mutation in HFE gene: Follows Dr. Nancy maki phlebotomy q3 weeks, although last was 6 weeks ago due to ferritin levels being below 50 ferritin level 12/03 44.8 monitor h/h (6) Hypercholesterolemia: continue diet modifications krill oil as outpt not on any statin medication (7) DVT prophylaxis: SCD/TEDs INR therapeutic, holding warfarin due to likely pacer placement Disposition: admit to PCU Follow up: PCP Dr. Collins upon discharge Pt was seen and examined in collaboration with Dr. Ball, please see addendum History of Present Illness Chief Complaint: CARMONA and Ill feeling x 2.5 weeks. 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 She elicits over the past 2-1/2 weeks even minimal ambulation will cause her significant shortness of breath, lightheadedness, dizziness and presyncope. She admits to being very active in her home with cleaning and keeping up with 2 small dogs. She has been unable to do so for the past 2 and half weeks due to not feeling well. She denies any other recent illness, fever, chills, sweats, syncope, palpitations, chest pain, shortness breath at rest, cough, hemoptysis, nausea, vomiting, abdominal pain, change in her bowel or urinary habits. Her appetite has otherwise been normal. Has been taking all medications as prescribed. Due to history of hemochromatosis she does get re gular phlebotomy approximately every 3 weeks. She has not had it in the past 6 weeks due to her ferritin level being less than 50. In ED patient remained hemodynamically stable however upon arrival EKG revealed patient to be in third- degree AV block. She did receive IV fluid and repeat EKG revealed patient had return into sinus rhythm and her symptoms had much improved. ED provider contacted patient's paper cone machine tender Dr. Schneider for guidance recommended inpatient admission for likely pacemaker placement. Allergies Allergy/AdvReac Type Severity Reaction Status Date / Time Penicillins Allergy Unknown RASH ALL Verified 12/05/19 11:27 OVER Sulfa (Sulfonamide Allergy Unknown STOMACH Verified 12/05/19 11:27 Antibiotics) ACHES erythromycin base AdvReac Unknown STOMACH Verified 12/05/19 11:27 ACHES loratadine AdvReac Unknown HEART RACE Verified 12/05/19 11:27 morphine AdvReac Unknown INTOLERANT Verified 12/05/19 11:27 pseudoephedrine AdvReac Unknown INTOLERANT Verified 12/05/19 11:27 Home Medications Home Medications Medication Instructions Recorded Confirmed Type albuterol sulfate 90 mcg/actuation 2 puffs INH QID PRN 02/08/19 12/05/19 History aerosol inhaler cholecalciferol (vitamin D3) 25 1,000 units PO QAM 02/08/19 12/05/19 History mcg (1,000 unit) capsule fluticasone propionate 50 1 sprays INTNAS DAILY PRN 02/08/19 12/05/19 History mcg/actuation nasal spray,suspension krill 1 cap PO QAM 02/08/19 12/05/19 History lbd-zq-3-qyl-axo-pfvlfucgsobbx 300 mg-90 mg-24 mg-50 mg capsule metformin 500 mg tablet 500 mg PO BID 02/08/19 12/05/19 History metoprolol tartrate 50 mg tablet 50 mg PO DIRECTED PRN tab 02/08/19 12/05/19 History mometasone-formoterol HFA 100 2 puffs INH DIRECTED PRN 02/08/19 12/05/19 History mcg-5 mcg/actuation aerosol inhaler montelukast 10 mg tablet 10 mg PO QPM 02/08/19 12/05/19 History wufdgevfhzep-mnqxdacm-gmbqsn 1 tab PO QAM 02/08/19 12/05/19 History vitamins A,C,K-vioq-pqserm 7,160 1 tab PO QAM tab 02/08/19 12/05/19 History unit-113 mg-100 unit tablet sotalol 160 mg tablet 240 mg PO BID #270 tab 08/22/19 12/05/19 Rx digoxin 125 mcg PO PM 12/05/19 12/05/19 History turmeric 400 mg PO QAM 12/05/19 12/05/19 History warfarin [Coumadin] 1 - 2 mg PO PM 12/05/19 12/05/19 History Past Med/Surg History Medical History (Updated 12/05/19 @ 14:16 by Viki Lema PA-C) Atrial fibrillation (Chronic) Hemochromatosis associated with mutation in HFE gene History of pulmonary embolus (PE) 1996 and 2000 requiring long-term anticoagulation HTN (hypertension) Prediabetes Pulmonary embolism (Chronic) Sarcoidosis of lung (Chronic) Surgical History History of appendectomy History of laparoscopic cholecystectomy History of partial hysterectomy History of right knee joint replacement History of total left hip replacement History of tubal ligation Family History (Updated 12/05/19 @ 14:01 by Viki Lema PA-C) Aunt Breast cancer Mother Alzheimer disease Father Lung cancer Social History (Updated 12/05/19 @ 14:01 by Viki Lema PA-C) Preferred Language: Cymraes Communication Ability: Effective marital status: Current Living Situation: Spouse Feels Safe at Home: Yes Smoking Status: Never smoker Hx Alcohol Use: Yes Alcohol Intake Frequency: Holidays/Special Occasions Review of Systems Review of Systems: All systems reviewed & are unremarkable except as noted in HPI & below Physical Exam Physical Exam: Constitutional: WD/WN, vitals as above, NAD, sitting up in bed, pleasant, conversing easily Head: Normocephalic, Atraumatic Eyes: PERRL, conjunctivae normal, anicteric sclerae ENMT: external ear and nose normal, oropharynx normal Neck: trachea midline, no thyromegaly normal visual inspection Respiratory: normal respiratory effort, lungs clear to auscultation, no wheeze, rales, rhonchi. Normal insp/exp effort, no accessory muscle use Cardiovascular: RRR, no murmur, no edema Vessels: no JVD or carotid bruit Chest: normal inspection of chest Abdomen: normal bowel sounds, soft, nontender, no hepatosplenomegaly Musculoskeletal: scar to R knee, no cyanosis or clubbing, extremities motor strength 5/5 Skin: no rashes, warm and dry normal turgor Neurologic: PERRL, EOMI, accommodation nl, no face palsy, no dysarthria CN's I I-XI intact bilaterally and moves all extremities Psychiatric: A+Ox3, euthymic affect Lymphatic: no cervical or axillary lymphadenopathy : deferred Results & Data Results & Data ([facility]) Vital Signs (Past 12 Hours) Vital Signs Temp Pulse Pulse Resp BP BP Pulse Ox 12/05/19 13:41 73 18 121/84 96 12/05/19 11:38 73 18 121/65 95 12/05/19 11:06 95 12/05/19 10:35 36.9 C 78 20 127/62 95 Laboratory Results Short CBC 12/05/19 Range/Units 11:03 WBC 7.06 (4.8-10.8) K/uL Hgb 13.4 (12.0-16.0) g/dL Hct 40.0 (37-47) % Plt Count 242 (130-400) K/uL BMP 12/05/19 11:03 Sodium 138 Potassium 4.1 Chloride 105 Carbon Dioxide 25 BUN 13 Creatinine 0.89 Glucose 160 H Calcium 9.3 Cardiac Enzymes 12/05/19 Range/Units 11:03 Troponin I < 0.015 (0-0.045) ng/ml Liver Function 12/05/19 Range/Units 11:03 Total Bilirubin 0.5 (0.2-1) mg/dl AST 19 (15-37) U/L ALT 24 (12-78) U/L Alkaline Phosphatase 73 (45-117) U/L Albumin 3.3 L (3.4-5.0) gm/dl Diagnostic Findings CXR: IMPRESSION: No acute cardiopulmonary findings. No change in appearance of the chest. Medications Administered Discontinued Medications Sodium Chloride (Nss) 500 mls @ 999 mls/hr IV .Q31M TA Stop: 12/05/19 11:30 Last Infusion: 12/05/19 11:42 Dose: 0 mls/hr Documented by: [id number] Admin: 12/05/19 11:09 Dose: 999 mls/hr Documented by: [id number] ECG Rate (beats per minute): 56 Findings: + complete heart block Code Status & VTE Plan Code Status Full Code VTE Prophylaxis Plan VTE Prophylaxis will be ordered: Yes Supervising Physician Co-Signing Physician Notes I, Dr. Jose Ball, have seen and examined the patient Georgina Toscano with physician assistant general manager and would like to comment on exam Physical Exam General: speaking in full sentences Pulmonary: no crackles appreciated on auscultation or wheezing, on room air Cardiac: appears to be in normal rate Abdomen: soft, nontender, normal bowel sounds Extremities/Neurological: moves all extremities Assessment and plan -that this a 69 year old patient who follows with [facility] cardiology and upon presentation for dyspnea on exertion and weakness, the patient is suspected to have third degree heart block. Currently appears to have sinus rhythm at time of hospitalist assessment but ED physician had already discussed with [facility] Cardiology and tentative assessment at this time is that patient is to be evaluated for pace maker placement. Patient will be NPO after midnight. Will hold her home dose prn metoprolol and hold the scheduled sotalol/ digoxin/warfarin for now until further cardiology assessment -agree with other assessment and plans as documented by physician assistant general manager -My colleague Dr. Reece will be the hospitalist physician starting on 12/06/2019
--- NOTE | 2019-12-05 14:56 | Electrocardiogram Report ---
Test Reason : Blood Pressure : / mmHG Vent. Rate : 056 BPM Atrial Rate : 076 BPM P-R Int : 000 ms QRS Dur : 144 ms QT Int : 492 ms P-R-T Axes : 032 -74 002 degrees QTc Int : 474 ms Sinus rhythm with complete heart block and Wide QRS rhythm Right bundle branch block Left anterior fascicular block When compared with ECG of 18-MAY-2018 07:14, Sinus rhythm is now with complete heart block Confirmed by Bassam Hurt ([id number]) on 12/05/2019 2:56:01 PM Referred By: ED Confirmed By:Bassam Hurt
--- NOTE | 2019-12-05 14:57 | Electrocardiogram Report ---
Test Reason : Blood Pressure : / mmHG Vent. Rate : 072 BPM Atrial Rate : 072 BPM P-R Int : 198 ms QRS Dur : 140 ms QT Int : 482 ms P-R-T Axes : 026 -70 017 degrees QTc Int : 527 ms Normal sinus rhythm Right bundle branch block Left anterior fascicular block Abnormal ECG When compared with ECG of 05-DEC-2019 10:46, Complete heart block no longer present Confirmed by Bassam Hurt ([id number]) on 12/05/2019 2:57:02 PM Referred By: Jeff Schneider Confirmed By:Bassam Hurt
[2019-12-05] MEDS ORDERED: GLUCOSE 10 TABS/TUBE PO PRN (19:05)
[2019-12-05] MEDS ORDERED: CARBOHYDRATES FOR HYPOGLYCEMIA PO PRN (19:05)
[2019-12-05] MEDS ORDERED: MAGNESIUM HYDROXIDE SUSP 30 ML UDC PO PRN (19:05)
[2019-12-05] MEDS ORDERED: POLYETHYLENE (MIRALAX) 17 GM PACK PO PRN (19:05)
[2019-12-05] MEDS ORDERED: GLUCAGON FOR INJ 1 MG VIAL SQ PRN (19:05)
[2019-12-05] MEDS ORDERED: ACETAMINOPHEN 325 MG TAB PO PRN (19:05)
[2019-12-05] MEDS ORDERED: ALBUTEROL HFA 8 GM INHALER INH PRN (19:05)
[2019-12-05] MEDS ORDERED: GLUCOSE 40% GEL 15 GM TUBE PO PRN (19:05)
[2019-12-05] MEDS ORDERED: DEXTROSE 50% 50 ML SYRINGE IV PRN (19:05)
[2019-12-05] MEDS ORDERED: ALUMINUM/MAGNESIUM SUSP 30 ML UDC PO PRN (19:05)
[2019-12-05] MEDS: MAGNESIUM SULFATE / D5W 1 GM/100 ML BAG IV SCH ×3 (19:16→21:10)
[2019-12-05] MEDS: INSULIN ASPART 100 UNITS/ML 3 ML PEN SC SCH ×2 (21:01→21:03)
[2019-12-05] MEDS: MONTELUKAST SODIUM 10 MG TABLET PO SCH (21:02)
[2019-12-06 04:44] LABS: Hematocrit (blood only) 39.3 % (37-47); Hemoglobin 12.8 g/dL (12.0-16.0); Mean Corpuscular Hemoglobin 31.1 pg (25-34); Mean Corpuscular Hgb Conc 32.6 g/dL (32-36); Mean Corpuscular Volume 95.4 fL (80-100); Mean Platelet Volume 10.1 fL (7.4-10.4); Platelet Count 219 K/uL (130-400); RDW Coefficient of Variation 14.3 % (11.5-14.5); RDW Standard Deviation 49.7 fL (36.4-46.3); Red Blood Count 4.12 M/uL (4.2-5.4)
[2019-12-06 05:00] LABS: INR 2.4 (0.9-1.1)
[2019-12-06 05:11] LABS: Albumin Level 3.1 gm/dl (3.4-5.0); Calcium 8.6 mg/dl (8.5-10.1); Creatinine Clr Calc Pharmacy 106.1 ml/min; Est GFR (African American) 89.9; Est GFR (Non-African American) 77.6; Magnesium 2.2 mg/dl (1.8-2.4); Potassium 4.2 mmol/L (3.5-5.1)
[2019-12-06 05:14] LABS: Albumin Globulin Ratio 0.8 (0.9-2); Bilirubin,Total 0.8 mg/dl (0.2-1); Globulin 3.7 gm/dl (2.5-4.0); Total Protein 6.8 gm/dl (6.4-8.2)
[2019-12-06 06:10] LABS: Estimated Average Glucose 123 mg/dl; Hemoglobin A1C 5.9 % (4.5-5.6)
[2019-12-06] MEDS ORDERED: PERFLUTREN LIPID MICROSPHERE (DEFINITY) IV ONE (07:48)
[2019-12-06] MEDS: INSULIN ASPART 100 UNITS/ML 3 ML PEN SC SCH ×4 (08:13→20:58)
[2019-12-06] MEDS: FLUTICASONE/VILANTEROL 100/25MCG 14 PUFFS/INHALER INH SCH (08:14)
[2019-12-06] MEDS: CHOLECALCIFEROL 1,000 UNITS 25 MCG TAB PO SCH (08:14)
[2019-12-06] MEDS: CEROVITE ADV FORMULA TAB PO SCH (08:14)
--- NOTE | 2019-12-06 09:40 | XCELERA ---
[id number]
[2019-12-06] MEDS ORDERED: SOTALOL HCL 80 MG TAB PO ONE (09:58)
--- NOTE | 2019-12-06 10:10 | Cardiology Consultation ---
Date of Consultation December 06, 2019 Assessment & Plan (1) Heart block AV third degree: -admitted with symptomatic complete heart block. -now in sinus rhythm. -if Dr. Echols agrees, proceed with permanent pacemaker. (2) Atrial fibrillation: -remains in sinus rhythm. -would restart sotalol. -Coumadin currently on hold. (3) HTN (hypertension): -adequate control on current regimen. (4) Hypercholesterolemia: -not on statin therapy. History of Present Illness Attending Physician: Ian Reece MD History of Present Illness Mrs. Toscano is a 69-year-old female admitted yesterday with intermittent complete heart block. This consultation was ordered to assist in her management. Of note, the patient is well known to me from the outpatient setting. The patient was in usual state of health until approximately 2 and half weeks ago. She began to experience intermittent episodes of profound fatigue, dizziness, and dyspnea with minimal physical activity. Her episodes increased in frequency over that time frame. Yesterday, she experienced an episode of near syncope and therefore, presented to the emergency room for further care. On arrival here, patient is noted to be in complete heart block. She was given 500 cc of intravenous fluid an spontaneously converted to sinus rhythm. The patient carries a history of paroxysmal atrial fibrillation. She has been maintained on sotalol and warfarin for many years. Fortunately, this strategy has worked well for her. The patient has not experienced segundo syncope. She further denies PND, orthopnea, palpitations, lower extremity edema, and claudication. We have had a long discussion regarding the need for permanent pacing. Past medical and surgical history 1. Hypertension 2. Hypercholesterolemia 3. Paroxysmal atrial fibrillation 4. RBBB 5. Left anterior hemiblock 6. Asthma 7. Hemochromatosis 8. Sarcoidosis 9. Allergic rhinitis 10. History of pulmonary embolism times 02-1996, 2000 11. Bilateral TKR-2005 Social history The patient is and lives with her No tobacco alcohol Family history No early coronary artery disease Review systems A 10 point review of systems was negative except for that described above. Allergies Allergy/AdvReac Type Severity Reaction Status Date / Time Penicillins Allergy Unknown RASH ALL Verified 12/05/19 11:27 OVER Sulfa (Sulfonamide Allergy Unknown STOMACH Verified 12/05/19 11:27 Antibiotics) ACHES erythromycin base AdvReac Unknown STOMACH Verified 12/05/19 11:27 ACHES loratadine AdvReac Unknown HEART RACE Verified 12/05/19 11:27 morphine AdvReac Unknown INTOLERANT Verified 12/05/19 11:27 pseudoephedrine AdvReac Unknown INTOLERANT Verified 12/05/19 11:27 Home Medications Home Medications Medication Instructions Recorded Confirmed Type albuterol sulfate 90 mcg/actuation 2 puffs INH QID PRN 02/08/19 12/05/19 History aerosol inhaler cholecalciferol (vitamin D3) 25 1,000 units PO QAM 02/08/19 12/05/19 History mcg (1,000 unit) capsule fluticasone propionate 50 1 sprays INTNAS DAILY PRN 02/08/19 12/05/19 History mcg/actuation nasal spray,suspension krill 1 cap PO QAM 02/08/19 12/05/19 History hwl-oy-6-mnm-ijj-fayhyrmpqeiuv 300 mg-90 mg-24 mg-50 mg capsule metformin 500 mg tablet 500 mg PO BID 02/08/19 12/05/19 History metoprolol tartrate 50 mg tablet 50 mg PO DIRECTED PRN tab 02/08/19 12/05/19 History mometasone-formoterol HFA 100 2 puffs INH DIRECTED PRN 02/08/19 12/05/19 History mcg-5 mcg/actuation aerosol inhaler montelukast 10 mg tablet 10 mg PO QPM 02/08/19 12/05/19 History cuhpmgzqelfj-cucciioi-eokeju 1 tab PO QAM 02/08/19 12/05/19 History vitamins A,C,U-juyb-choheu 7,160 1 tab PO QAM tab 02/08/19 12/05/19 History unit-113 mg-100 unit tablet sotalol 160 mg tablet 240 mg PO BID #270 tab 08/22/19 12/05/19 Rx digoxin 125 mcg PO PM 12/05/19 12/05/19 History turmeric 400 mg PO QAM 12/05/19 12/05/19 History warfarin [Coumadin] 1 - 2 mg PO PM 12/05/19 12/05/19 History Patient History Medical History (Updated 12/05/19 @ 14:16 by Viki Lema PA-C) Atrial fibrillation (Chronic) Hemochromatosis associated with mutation in HFE gene History of pulmonary embolus (PE) 1996 and 2000 requiring long-term anticoagulation HTN (hypertension) Prediabetes Pulmonary embolism (Chronic) Sarcoidosis of lung (Chronic) Surgical History History of appendectomy History of laparoscopic cholecystectomy History of partial hysterectomy History of right knee joint replacement History of total left hip replacement History of tubal ligation Family History (Updated 12/05/19 @ 14:01 by Viki Lema PA-C) Aunt Breast cancer Mother Alzheimer disease Father Lung cancer Social History (Updated 12/05/19 @ 14:01 by Viki Lema PA-C) Preferred Language: Wolof Communication Ability: Effective Beliefs That Will Affect Care: None marital status: Current Living Situation: Spouse Feels Safe at Home: Yes Safety Concerns: Feels Safe At This Time Smoking Status: Never smoker Hx Alcohol Use: No Hx Substance Use: No Physical Exam Physical Exam: In general this is a morbidly obese white female in no acute distress. HEENT exam is negative. Neck is supple with full carotid upstrokes. No carotid bruits. Jugular is pressure is flat at 90. No thyromegaly. Cardiovascular exam reveals a regular rhythm with distant heart sounds. Normal S1 and S2. No murmurs. Lungs are clear without rales, rhonchi or wheezes. Abdomen is obese without bruits. Extremities reveal intact radial artery pulses bilaterally. There is trace pretibial edema. Results & Data ([facility]) Vital Signs (Past 12 Hours) Vital Signs Temp Pulse Resp BP Pulse Ox 12/06/19 07:55 36.6 C 73 17 127/80 94 12/06/19 04:11 36.8 C 66 22 116/66 93 12/05/19 23:50 36.7 C 68 17 131/51 L 95 Laboratory Results CBC notes hemoglobin 12.8, crit 39.3, white count 7.4, platelet count [id number]. Electrolytes note a sodium of 139, potassium 4.2, chloride 106, bicarb 29, BUN 13, creatinine 0.78, glucose of 111. Troponin I levels undetectable less than 0.015. TSH is normal at 2.43. INR is elevated 2.4. Diagnostic Findings Presenting EKG noted sinus bradycardia and complete heart block. There was a ventricular escape rhythm. There is a complete right bundle-branch block and left anterior hemiblock. brick setter now notes sinus rhythm. No atrial fibrillation. Chest x-ray showed no acute disease. PG Care Time/CCT Total # of Minutes Spent Total Time Spent with Patient: Total time spent is greater than 50% in coordination of care (as documented) at patient's floor/unit and/or counseling patient: Coding Level of Care Code 38555 Initial Inpt Care Lvl 3 Diagnoses Heart block AV third degree I44.2 Atrial fibrillation I48.91 HTN (hypertension) I10 Hypercholesterolemia E78.00
--- NOTE | 2019-12-06 13:21 | Hospitalist Progress Note ---
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 In ED initial EKG revealed suspected third-degree AV block. Patient symptoms improved after administration of IV fluid and repeat EKG revealed normal sinus rhythm with bifascicular block. ER provider contacted director industrial relations who recommended inpatient admission and likely pacemaker placement. Lyme serology negative. [place] [facility] [place] -Dr. 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 Nancy maki phlebotomy q3 weeks, although last was 6 weeks ago due to ferritin levels being below 50 ferritin level 12/03 44.8 monitor h/h (6) Hypercholesterolemia: continue diet modifications krill oil as outpt not on any statin medication (7) DVT prophylaxis: SCD/TEDs INR therapeutic, holding warfarin due to likely pacer placement Disposition: admit to PCU Follow up: PCP Dr. Collins upon discharge Admission and Anticipated Discharge Date Admission Date: December 05, 2019 Subjective Patient is lying in bed, in no acute distress. She says that unless she is ambulating, she has no palpitations, dizziness or any symptoms. She tells me that prior to coming to hospital she was extremely fatigued, even though she is usually very active. Currently as she is resting in bed, she denies any fevers, chills, chest pain, shortness of breath, palpitations, dizziness or lightheadedness, abdominal pain, nausea or vomiting. She was seen by Dr. Schneider earlier this morning, plan for pacemaker placement later today. Review of Systems Review of Systems: All systems reviewed & are unremarkable except as noted in HPI & below Constitutional: no fever and no chills Respiratory: no cough and no dyspnea Cardiovascular: no chest pain and no palpitations Gastrointestinal: no abdominal pain, no nausea and no vomiting Physical Exam Physical Exam: Constitutional: Elderly obese female sitting up in the bed, in no acute distress, WD/WN, pleasant, conversing easily Head: Normocephalic, Atraumatic Eyes: PERRL, conjunctivae normal, anicteric sclerae ENMT: external ear and nose normal, oropharynx normal Neck: trachea midline, no thyromegaly normal visual inspection Respiratory: normal respiratory effort, lungs clear to auscultation, no wheeze, rales, rhonchi. Normal insp/exp effort, no accessory muscle use Cardiovascular: RRR, no murmur, no edema Vessels: no JVD or carotid bruit Chest: normal inspection of chest Abdomen: normal bowel sounds, soft, obese, nontender Musculoskeletal: scar to R knee, no cyanosis or clubbing, extremities motor strength 5/5 Skin: no rashes, warm and dry normal turgor Neurologic: PERRL, EOMI, no face palsy, no dysarthria CN's II-XI intact bilaterally and moves all extremities Psychiatric: A+Ox3, euthymic affect, answers questions appropriately Results & Data Results & Data ([facility]) Vital Signs (Past 12 Hours) Vital Signs Temp Pulse Resp BP Pulse Ox 12/06/19 07:55 36.6 C 73 17 127/80 94 12/06/19 04:11 36.8 C 66 22 116/66 93 Laboratory Results 12/06/19 12/06/19 12/06/19 Range/Units 11:33 07:53 04:25 WBC (4.8-10.8) K/uL RBC (4.2-5.4) M/uL Hgb (12.0-16.0) g/dL Hct (37-47) % MCV (80-100) fL MCH (25-34) pg MCHC (32-36) g/dL RDW Std Deviation (36.4-46.3) fL RDW Coeff of Blanca (11.5-14.5) % Plt Count (130-400) K/uL MPV (7.4-10.4) fL PT (9.0-12.0) Seconds INR (0.9-1.1) Sodium (136-145) mmol/L Potassium (3.5-5.1) mmol/L Chloride (98-107) mmol/L Carbon Dioxide (21-32) mmol/L Anion Gap (3-11) BUN (7-18) mg/dl Creatinine (0.6-1.2) mg/dl Est Cr Clr Drug Dosing ml/min Est GFR ( Amer) Est GFR (Non-Af Amer) BUN/Creatinine Ratio (10-20) Glucose (70-99) mg/dl POC Glucose 119 H 119 H (70-99) mg/dl Estimat Average Glucose 123 mg/dl Hemoglobin A1c 5.9 H (4.5-5.6) % Calcium (8.5-10.1) mg/dl Magnesium (1.8-2.4) mg/dl Total Bilirubin (0.2-1) mg/dl AST (15-37) U/L ALT (12-78) U/L Alkaline Phosphatase (45-117) U/L Total Protein (6.4-8.2) gm/dl Albumin (3.4-5.0) gm/dl Globulin (2.5-4.0) gm/dl Albumin/Globulin Ratio (0.9-2) Nasal Screen MRSA (PCR) (Negative) 12/06/19 12/06/19 12/06/19 Range/Units 04:25 04:25 04:25 WBC 7.40 (4.8-10.8) K/uL RBC 4.12 L (4.2-5.4) M/uL Hgb 12.8 (12.0-16.0) g/dL Hct 39.3 (37-47) % MCV 95.4 (80-100) fL MCH 31.1 (25-34) pg MCHC 32.6 (32-36) g/dL RDW Std Deviation 49.7 H (36.4-46.3) fL RDW Coeff of Blanca 14.3 (11.5-14.5) % Plt Count 219 (130-400) K/uL MPV 10.1 (7.4-10.4) fL PT 24.0 H (9.0-12.0) Seconds INR 2.4 H (0.9-1.1) Sodium 139 (136-145) mmol/L Potassium 4.2 (3.5-5.1) mmol/L Chloride 106 (98-107) mmol/L Carbon Dioxide 29 (21-32) mmol/L Anion Gap 4.0 (3-11) BUN 13 (7-18) mg/dl Creatinine 0.78 (0.6-1.2) mg/dl Est Cr Clr Drug Dosing 106.1 ml/min Est GFR ( Amer) 89.9 Est GFR (Non-Af Amer) 77.6 BUN/Creatinine Ratio 17.0 (10-20) Glucose 111 H (70-99) mg/dl POC Glucose (70-99) mg/dl Estimat Average Glucose mg/dl Hemoglobin A1c (4.5-5.6) % Calcium 8.6 (8.5-10.1) mg/dl Magnesium 2.2 (1.8-2.4) mg/dl Total Bilirubin 0.8 (0.2-1) mg/dl AST 19 (15-37) U/L ALT 20 (12-78) U/L Alkaline Phosphatase 61 (45-117) U/L Total Protein 6.8 (6.4-8.2) gm/dl Albumin 3.1 L (3.4-5.0) gm/dl Globulin 3.7 (2.5-4.0) gm/dl Albumin/Globulin Ratio 0.8 L (0.9-2) Nasal Screen MRSA (PCR) (Negative) 12/05/19 12/05/19 Range/Units 20:59 19:20 WBC (4.8-10.8) K/uL RBC (4.2-5.4) M/uL Hgb (12.0-16.0) g/dL Hct (37-47) % MCV (80-100) fL MCH (25-34) pg MCHC (32-36) g/dL RDW Std Deviation (36.4-46.3) fL RDW Coeff of Blanca (11.5-14.5) % Plt Count (130-400) K/uL MPV (7.4-10.4) fL PT (9.0-12.0) Seconds INR (0.9-1.1) Sodium (136-145) mmol/L Potassium (3.5-5.1) mmol/L Chloride (98-107) mmol/L Carbon Dioxide (21-32) mmol/L Anion Gap (3-11) BUN (7-18) mg/dl Creatinine (0.6-1.2) mg/dl Est Cr Clr Drug Dosing ml/min Est GFR ( Amer) Est GFR (Non-Af Amer) BUN/Creatinine Ratio (10-20) Glucose (70-99) mg/dl POC Glucose 115 H (70-99) mg/dl Estimat Average Glucose mg/dl Hemoglobin A1c (4.5-5.6) % Calcium (8.5-10.1) mg/dl Magnesium (1.8-2.4) mg/dl Total Bilirubin (0.2-1) mg/dl AST (15-37) U/L ALT (12-78) U/L Alkaline Phosphatase (45-117) U/L Total Protein (6.4-8.2) gm/dl Albumin (3.4-5.0) gm/dl Globulin (2.5-4.0) gm/dl Albumin/Globulin Ratio (0.9-2) Nasal Screen MRSA (PCR) Negative (Negative) Medications Administered Current Inpatient Medications Acetaminophen (Tylenol) 650 mg PO Q4H PRN PRN Reason: Pain or Fever Stop: 01/04/20 19:04 Al Hydrox/Mg Hydrox/Simethicone (Maalox) 15 ml PO Q4H PRN PRN Reason: Dyspepsia Stop: 01/04/20 19:04 Albuterol (Ventolin Hfa) 2 puffs INH QID PRN PRN Reason: shortness of breath or wheezing Stop: 01/04/20 19:04 Dextrose (Dextrose 50%) 25 - 50 ml IV UD PRN; Protocol PRN Reason: Hypoglycemia Protocol Stop: 01/04/20 19:04 Fluticasone/Vilanterol (Breo Ellipta 100/25 Mcg Inh) 1 puffs INH DAILY TA Stop: 01/05/20 08:59 Last Admin: 12/06/19 08:14 Dose: 1 puffs Documented by: Glucagon (Glucagen) 1 mg SQ UD PRN; Protocol PRN Reason: Hypoglycemia Protocol Stop: 01/04/20 19:04 Glucose (Dex4 Glucose) 4 - 8 tabs PO UD PRN; Protocol PRN Reason: Hypoglycemia Protocol Stop: 01/04/20 19:04 Glucose (Glucose 40%) 15 - 30 gm PO UD PRN; Protocol PRN Reason: Hypoglycemia Protocol Stop: 01/04/20 19:04 Insulin Aspart (Novolog Flexpen) 0 units SC ACHS TA Stop: 01/04/20 19:04 Last Admin: 12/06/19 11:49 Dose: Not Given Documented by: Magnesium Hydroxide (Milk Of Magnesia) 30 ml PO Q12H PRN PRN Reason: Constipation Stop: 01/04/20 19:04 Miscellaneous (Carbohydrates For Hypoglycemia) 15 - 30 gm PO UD PRN PRN Reason: Hypoglycemia Protocol Stop: 01/04/20 19:04 Montelukast Sodium (Singulair) 10 mg PO QPM [facility] Stop: 01/04/20 20:59 Last Admin: 12/05/19 21:02 Dose: 10 mg Documented by: Multivitamins/Minerals (Multivitamin W/ Minerals Tab) [facility] [place] Stop: 01/05/20 08:59 Last Admin: 12/06/19 08:14 Dose: Not Given Documented by: Polyethylene Glycol (Miralax Powder Packet) 17 gm PO DAILY PRN PRN Reason: Constipation Stop: 01/04/20 19:04 Sotalol HCl (Betapace) 240 mg PO BID [facility] Stop: 01/05/20 20:59 Vitamin D (Vitamin D3) 1,000 units PO QAM [facility] Stop: 01/05/20 08:59 Last Admin: 12/06/19 08:14 Dose: Not Given Documented by:
--- NOTE | 2019-12-06 13:48 | Pre Anesthesia Assessment ---
Date of Service December 06, 2019 Pre Sedation Assessment Vital Signs Temp Pulse Pulse Resp BP BP Pulse Ox 12/06/19 07:55 36.6 C 73 17 127/80 94 12/06/19 04:11 36.8 C 66 22 116/66 93 12/05/19 23:50 36.7 C 68 17 131/51 L 95 12/05/19 19:30 75 20 132/96 95 12/05/19 18:32 84 18 130/74 97 12/05/19 17:00 75 18 145/61 H 98 12/05/19 15:00 70 18 127/70 97 Cardiovascular + regular rate Respiratory + respiratory effort normal Pre-Sedation Airway Assessment Smoking Status: Never smoker Hx Sleep Apnea: No Hx Difficult Intubation: No Short, Thick Neck: Yes Thyromental Distance: > or= 3.5 Finger Breadths Oral Cavity: + WNL Mallampati Class: III ASA: ASA3 Procedure Planning Contraindications for Sedation: none Current Medications Reviewed: Yes Notes The planned sedation has been discussed with the patient. Informed Consent was obtained. I have identified the patient, determined the appropriateness of sedation and have assessed the patient immediately prior to the procedure. All medicine(s) and interventions are by my order.
[2019-12-06] MEDS ORDERED: CLINDAMYCIN PHOS 300 MG/2 ML VIAL ONE (13:50)
[2019-12-06] MEDS ORDERED: BUPIVACAINE 0.25% 30 ML VIAL ONE (13:52)
[2019-12-06] MEDS ORDERED: MIDAZOLAM HCL 5 MG/ML 1 ML VIAL ONE (13:52)
[2019-12-06] MEDS ORDERED: fentaNYL citrate 100 MCG/2 ML VIAL ONE (13:52)
[2019-12-06] MEDS ORDERED: BACITRACIN INJ 50,000 UNIT VIAL ONE (13:52)
[2019-12-06] MEDS ORDERED: LIDOCAINE HCL 1% 20 ML VIAL ONE (13:52)
--- NOTE | 2019-12-06 15:04 | Electrophysiology Report ---
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 She had symptoms associated with the resulting bradycardia and was felt to be a good candidate for permanent pacing due to symptomatic nonreversible AV node dysfunction. An ICD was chosen as an alternative as the patient does have sarcoidosis and may require ventricular therapies in the future. Procedure in detail: The patient was informed of the risks benefits and alternatives to the intended procedure and she wished to proceed. She was taken to the electrophysiology suite in a fasting state. A preoperative antibiotic had been administered. The patient was monitored electrocardiographically throughout today's procedure and conscious sedation was administered per protocol. The left upper pectoral area is prepped and draped in usual sterile fashion. This area was anesthetized using subcutaneous administration of a xylocaine solution. An incision was made at this site and carried down to the prepectoralis fascia using sharp dissection. Electrocautery was also employed for dissection as well as for hemostasis. A device pocket was fashioned tissues above the pectoralis muscle. Subsequent to this maneuver the left axillary vein was accessed using modified Seldinger technique. Sheaths were placed over guidewires at this site and used to facilitate passage of the pacing leads to the respective chambers under fluoroscopic guidance. This included right atrial and right ventricular leads. Adequate sensing and threshold parameters were obtained prior to Active fixation of the leads to the endocardial surface. The proximal portion leads were then sutured the prepectoral fascia using nonabsorbable suture. The device pocket was irrigated with antibiotic solution. The leads were then attached to the device. The device and leads were then placed in the pocket and pocket was closed in 3 layers of absorbable suture. Steri-Strips and sterile dressing were applied. The device was tested noninvasively prior to conclusion the procedure. The patient tolerated procedure well there no immediate complications. Equipment used: New pulse generator: Kiln Tender [employer]. Model number: [id number] serial number [id number] Right atrial lead: Kiln Tender Medtronic. Model number: [id number] serial number [id number] Right ventricular lead: Kiln Tender [employer]onic. Model number: 6935M serial number [id number] Measured data: Right atrial lead: P waves measure 2.4 mV. Pacing threshold 1.25 V at 0.4 ms with a pacing impedance of 627 ohms Right ventricular lead: R waves measured 5 mV. Pacing threshold 0.5 V at 0.4 ms with a paced impedance of 399 ohms Impression: Successful implantation of dual-chamber ICD MN[facility] Electrophysiology codes ICD Procedure 1: ICD: 41869 Insert single or dual ICD system PG Moderate Sedation Codes Moderate Sedation Codes Procedure 1: Sedation/Anesthesia: 67941 Mod Sedation by the same physician;Init15 Min Child Age 5 & Up Procedure 2: Sedation/Anesthesia: 99112 Mod Sedation by the same physician; Ea [id number] Minutes
[2019-12-06] MEDS ORDERED: OXYCODONE HCL IR 5 MG TAB (IMMEDIATE RELEASE) PO PRN (15:05)
--- NOTE | 2019-12-06 15:05 | Post Anesthesia Assessment ---
Date of Service December 06, 2019 Post Sedation Assessment Vital Signs Temp Pulse Pulse Resp BP BP Pulse Ox 12/06/19 07:55 36.6 C 73 17 127/80 94 12/06/19 04:11 36.8 C 66 22 116/66 93 12/05/19 23:50 36.7 C 68 17 131/51 L 95 12/05/19 19:30 75 20 132/96 95 12/05/19 18:32 84 18 130/74 97 12/05/19 17:00 75 18 145/61 H 98 Recovery Score Activity: Moves 4 extremities Respiration: Deep Breath/Cough Circulation: +/-20% PreAnes Value Consciousness: Arouseable (by name) Oxygen Saturation: > 92% On Room Air Discharge Sedation Level of Care: Fast Track Phase II Post Sedation Plan On clinical assessment, the patient appears to have tolerated the sedation without complications. Patient is recovering as anticipated. Patient will continue to be monitored by nursing and may be discharged when sedation discharge criteria are met per below protocol. Upon Completions of procedure up to 15 minutes continue every 5 minute vital signs and the P.A.R. score; then discharge to a Phase I or Fast Track to Phase II per the following guidelines: * Discharge Patient to appropriate Phase II area if PAR is 8 or greater or return to pre- procedure baseline. The post - procedure orders will be as directed. * If PAR score is less than 8 or not return to pre-procedure baseline then patient will follow Phase I monitoring till PAR is reached for Phase II. The Phase I may be done in procedure room or may call to secure a Phase I area. * If naloxone or flumazenil are used for reversal, hold in Phase I for continued monitoring from when last reversal dose was given for a minimum of 60 minutes or longer pending the nurse and/or physician discretion of patient condition before discharge to Phase II. Please call the Sedation Physician to re-evaluate and complete post-note for discharge to Phase II area. Do NOT discharge from procedure sedation or Phase 1 until post- sedation evaluation note is complete by procedure /sedation MD Sedation Discharge Instructions to be given to the patient at discharge to home.
[2019-12-06] MEDS ORDERED: WARFARIN SOD 2 MG TAB PO ONE (16:34)
[2019-12-06] MEDS: ACETAMINOPHEN 325 MG TAB PO PRN (19:37)
[2019-12-06] MEDS: MONTELUKAST SODIUM 10 MG TABLET PO SCH (21:21)
[2019-12-06] MEDS: SOTALOL HCL 80 MG TAB PO SCH (21:21)
[2019-12-06] MEDS: CLINDAMYCIN 600 MG in DEXTROSE 5% 50 ML IV SCH (21:35)
[2019-12-07] MEDS: ACETAMINOPHEN 325 MG TAB PO PRN ×3 (00:48→13:13)
[2019-12-07 05:11] LABS: INR 2.4 (0.9-1.1); Prothrombin Time 24.6 Seconds (9.0-12.0)
[2019-12-07] MEDS: CLINDAMYCIN 600 MG in DEXTROSE 5% 50 ML IV SCH ×2 (06:20→13:12)
[2019-12-07] MEDS: INSULIN ASPART 100 UNITS/ML 3 ML PEN SC SCH ×2 (08:18→11:43)
[2019-12-07] MEDS: SOTALOL HCL 80 MG TAB PO SCH (08:42)
[2019-12-07] MEDS: CEROVITE ADV FORMULA TAB PO SCH (08:42)
[2019-12-07] MEDS: FLUTICASONE/VILANTEROL 100/25MCG 14 PUFFS/INHALER INH SCH (08:42)
[2019-12-07] MEDS: CHOLECALCIFEROL 1,000 UNITS 25 MCG TAB PO SCH (08:43)
--- NOTE | 2019-12-07 09:10 | XRay Report ---
XR chest 2V PA/lateral HISTORY: EXACT TIME ORDERED Evaluate for pneumothorax and l COMPARISON: Chest 12/05/2019. FINDINGS: Interval placement of left-sided pacemaker/defibrillator. The leads appear intact. No pneum othorax. No pleural effusions. The heart is stable in size. Calcified mediastinal and bilateral hilar lymphadenopathy persists. Linear density within the right middle lobe consistent with chronic atelec tasis. This is also unchanged. IMPRESSION: Status post left-sided pacemaker/defibrillator. No pneumothorax. ACT 112: Negative or not required by law. Electronically signed by: Eitan Ortiz M.D. 12/07/2019 9:09 AM
[2019-12-07 10:07] LABS: Hematocrit (blood only) 42.6 % (37-47); Hemoglobin 14.1 g/dL (12.0-16.0); Mean Corpuscular Hemoglobin 31.3 pg (25-34); Mean Corpuscular Hgb Conc 33.1 g/dL (32-36); Mean Corpuscular Volume 94.5 fL (80-100); Mean Platelet Volume 10.1 fL (7.4-10.4); Platelet Count 247 K/uL (130-400); RDW Coefficient of Variation 14.2 % (11.5-14.5); RDW Standard Deviation 48.9 fL (36.4-46.3); Red Blood Count 4.51 M/uL (4.2-5.4); White Blood Count 8.27 K/uL (4.8-10.8)
--- NOTE | 2019-12-07 10:07 | Cardiology Progress Note ---
Date of Service December 07, 2019 Assessment & Plan (1) Heart block AV third degree: Status post implantation of dual-chamber ICD. No evident complication. At this point the patient would be safe for discharge. I would recommend keeping the wound dry in the Steri-Strips intact until follow-up in our clinic next week for wound evaluation. She should also refrain from lifting left arm above the shoulder behind the neck for 6 weeks. (2) Atrial fibrillation: Sotalol restarted. Continue warfarin. I would recommend starting metoprolol succinate 25 milligrams daily at the time of discharge. She could still use p.r.n. metoprolol for episodes of atrial fibrillation if she felt poorly or her heart rates were high. (3) HTN (hypertension): -adequate control on current regimen. (4) Hypercholesterolemia: -not on statin therapy. Subjective This morning the patient claims feeling well. She was ambulatory around her room and actually felt much better than this time of admission. Minimal discomfort at the device implant site. Review of Systems Review of Systems: Per HPI Physical Exam Physical Exam: Evaluation of the device implant site in the left upper pectoral area reveals some mild ecchymosis. No significant erythema, no drainage, no hematoma. Results & Data Vital Signs (Past 12 Hours) Vital Signs Temp Pulse Pulse Resp BP Pulse Ox 12/07/19 08:08 36.7 C 71 20 108/69 92 12/07/19 03:53 36.5 C 68 19 117/66 93 12/07/19 00:00 65 12/06/19 23:41 36.8 C 71 24 120/59 L 95 Laboratory Results Abnormal Lab Results 12/06/19 12/06/19 12/06/19 11:33 16:29 20:05 PT INR POC Glucose 119 H 119 H 102 H 12/07/19 12/07/19 04:35 07:33 PT 24.6 H INR 2.4 H POC Glucose 129 H Diagnostic Findings Device interrogation revealed good function of both the atrial ventricular leads. Chest x-ray revealed good lead placement without evidence of pneumothorax
[2019-12-07 10:40] LABS: BUN Creatinine Ratio 14.8 (10-20); Creatinine Clr Calc Pharmacy 90.4 ml/min; Est GFR (African American) 75.6; Est GFR (Non-African American) 65.2; Potassium 3.9 mmol/L (3.5-5.1)
--- NOTE | 2019-12-07 10:53 | Hospitalist Progress Note ---
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 In ED initial EKG revealed suspected third-degree AV block. Patient symptoms improved after administration of IV fluid and repeat EKG revealed normal sinus rhythm with bifascicular block. ER provider contacted steamfitter apprentice who recommended inpatient admission and likely pacemaker placement. Lyme serology negative. [facility] [place] consulted -Dr. Schneider saw patient and planned for pacemaker placement Now patient is status post dual-chamber ICD implantation 12/06/2019, by Dr. Echols. Sotalol resumed 12/[address] Echols, patient should continue sotalol, warfarin, and start metoprolol succinate 25 mg daily. Will stop digoxin. She can use her as needed metoprolol as previously ordered. Recommend keeping the wound dry in the Steri-Strips intact until follow-up in cardiology clinic next week for wound evaluation. She should also refrain from lifting left arm above the shoulder behind the neck for 6 weeks. 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 Nancy maki phlebotomy q3 weeks, although last was 6 weeks ago due to ferritin levels being below 50 ferritin level 12/03 44.8 monitor h/h (6) Hypercholesterolemia: continue diet modifications krill oil as outpt not on any statin medication Morbid obesity -with BMI of 49, patient in need of weight loss counseling -Patient states she actually lost 30 pounds over 6 months, then during COVID time she gained about 4 pounds back -She is determined to lose weight, uses a stationary bicycle, she was advised by cardiology, to gradually work her way up back on her usual use of stationary bicycle (7) DVT prophylaxis: SCD/TEDs INR therapeutic, on warfarin Disposition: PCU, plan to discharge home Follow up: PCP Dr. Collins upon discharge Admission and Anticipated Discharge Date Admission Date: December 05, 2019 Subjective Patient status post dual-chamber ICD implantation yesterday, by Dr. Echols. Warfarin and sotalol resumed. Discussed with Dr. Echols, recommend to continue sotalol and warfarin and start patient on metoprolol succinate 25 daily. Digoxin can be discontinued. Patient seen, she is lying in bed, in no acute distress. She says that she feels much better today. Tells me that yesterday morning when she got up to the bathroom and washed herself she got completely fatigued but this morning she fel t just fine after her morning washing. Denies any chest pain shortness of breath, dizziness lightheadedness, fevers chills, abdominal pain, nausea or vomiting. Review of Systems Review of Systems: All systems reviewed & are unremarkable except as noted in HPI & below Constitutional: no fever and no chills Respiratory: no cough and no dyspnea Cardiovascular: no chest pain and no palpitations Gastrointestinal: no abdominal pain, no nausea and no vomiting Physical Exam Physical Exam: Constitutional: Elderly obese female sitting up in the bed, in no acute distress, WD/WN, pleasant, conversing easily Head: Normocephalic, Atraumatic Eyes: PERRL, conjunctivae normal, anicteric sclerae ENMT: external ear and nose normal, oropharynx normal Neck: trachea midline, no thyromegaly normal visual inspection Respiratory: normal respiratory effort, lungs clear to auscultation, no wheeze, rales, rhonchi. Normal insp/exp effort, no accessory muscle use Cardiovascular: RRR, no murmur, no edema Vessels: no JVD or carotid bruit Chest: normal inspection of chest Abdomen: normal bowel sounds, soft, obese, nontender Musculoskeletal: scar to R knee, no cyanosis or clubbing, extremities motor strength 5/5 Skin: no rashes, warm and dry normal turgor Neurologic: PERRL, EOMI, no face palsy, no dysarthria CN's II-XI intact bilaterally and moves all extremities Psychiatric: A+Ox3, euthymic affect, answers questions appropriately Results & Data Results & Data ([facility]) Vital Signs (Past 12 Hours) Vital Signs Temp Pulse Pulse Resp BP Pulse Ox 12/07/19 08:08 36.7 C 71 20 108/69 92 12/07/19 03:53 36.5 C 68 19 117/66 93 12/07/19 00:00 65 12/06/19 23:41 36.8 C 71 24 120/59 L 95 Laboratory Results 12/07/19 12/07/19 12/07/19 Range/Units 09:50 09:50 07:33 WBC 8.27 (4.8-10.8) K/uL RBC 4.51 (4.2-5.4) M/uL Hgb 14.1 (12.0-16.0) g/dL Hct 42.6 (37-47) % MCV 94.5 (80-100) fL MCH 31.3 (25-34) pg MCHC 33.1 (32-36) g/dL RDW Std Deviation 48.9 H (36.4-46.3) fL RDW Coeff of Blanca 14.2 (11.5-14.5) % Plt Count 247 (130-400) K/uL MPV 10.1 (7.4-10.4) fL PT (9.0-12.0) Seconds INR (0.9-1.1) Sodium 135 L (136-145) mmol/L Potassium 3.9 (3.5-5.1) mmol/L Chloride 105 (98-107) mmol/L Carbon Dioxide 25 (21-32) mmol/L Anion Gap 6.0 (3-11) BUN 13 (7-18) mg/dl Creatinine 0.90 (0.6-1.2) mg/dl Est Cr Clr Drug Dosing 90.4 ml/min Est GFR ( Amer) 75.6 Est GFR (Non-Af Amer) 65.2 BUN/Creatinine Ratio 14.8 (10-20) Glucose 137 H (70-99) mg/dl POC Glucose 129 H (70-99) mg/dl Calcium 9.0 (8.5-10.1) mg/dl Magnesium 2.0 (1.8-2.4) mg/dl 12/07/19 12/06/19 12/06/19 Range/Units 04:35 20:05 16:29 WBC (4.8-10.8) K/uL RBC (4.2-5.4) M/uL Hgb (12.0-16.0) g/dL Hct (37-47) % MCV (80-100) fL MCH (25-34) pg MCHC (32-36) g/dL RDW Std Deviation (36.4-46.3) fL RDW Coeff of Blanca (11.5-14.5) % Plt Count (130-400) K/uL MPV (7.4-10.4) fL PT 24.6 H (9.0-12.0) Seconds INR 2.4 H (0.9-1.1) Sodium (136-145) mmol/L Potassium (3.5-5.1) mmol/L Chloride (98-107) mmol/L Carbon Dioxide (21-32) mmol/L Anion Gap (3-11) BUN (7-18) mg/dl Creatinine (0.6-1.2) mg/dl Est Cr Clr Drug Dosing ml/min Est GFR ( Amer) Est GFR (Non-Af Amer) BUN/Creatinine Ratio (10-20) Glucose (70-99) mg/dl POC Glucose 102 H 119 H (70-99) mg/dl Calcium (8.5-10.1) mg/dl Magnesium (1.8-2.4) mg/dl 12/06/19 Range/Units 11:33 WBC (4.8-10.8) K/uL RBC (4.2-5.4) M/uL Hgb (12.0-16.0) g/dL Hct (37-47) % MCV (80-100) fL MCH (25-34) pg MCHC (32-36) g/dL RDW Std Deviation (36.4-46.3) fL RDW Coeff of Blanca (11.5-14.5) % Plt Count (130-400) K/uL MPV (7.4-10.4) fL PT (9.0-12.0) Seconds INR (0.9-1.1) Sodium (136-145) mmol/L Potassium (3.5-5.1) mmol/L Chloride (98-107) mmol/L Carbon Dioxide (21-32) mmol/L Anion Gap (3-11) BUN (7-18) mg/dl Creatinine (0.6-1.2) mg/dl Est Cr Clr Drug Dosing ml/min Est GFR ( Amer) Est GFR (Non-Af Amer) BUN/Creatinine Ratio (10-20) Glucose (70-99) mg/dl POC Glucose 119 H (70-99) mg/dl Calcium (8.5-10.1) mg/dl Magnesium (1.8-2.4) mg/dl Medications Administered Current Inpatient Medications Acetaminophen (Tylenol) 650 mg PO Q4H PRN PRN Reason: Mild pain (rating 1,2,3) Stop: 01/05/20 15:04 Last Admin: 12/07/19 06:20 Dose: 650 mg Documented by: Al Hydrox/Mg Hydrox/Simethicone (Maalox) 15 ml PO Q4H PRN PRN Reason: Dyspepsia Stop: 01/04/20 19:04 Albuterol (Ventolin Hfa) 2 puffs INH QID PRN PRN Reason: shortness of breath or wheezing Stop: 01/04/20 19:04 Dextrose (Dextrose 50%) 25 - 50 ml IV UD PRN; Protocol PRN Reason: Hypoglycemia Protocol Stop: 01/04/20 19:04 Digoxin (Lanoxin) 0.125 mg PO DAILY@1600 [facility] Stop: 01/06/20 15:59 Fluticasone/Vilanterol (Breo Ellipta 100/25 Mcg Inh) 1 puffs INH DAILY TA Stop: 01/05/20 08:59 Last Admin: 12/07/19 08:42 Dose: 1 puffs Documented by: Glucagon (Glucagen) 1 mg SQ UD PRN; Protocol PRN Reason: Hypoglycemia Protocol Stop: 01/04/20 19:04 Glucose (Dex4 Glucose) 4 - 8 tabs PO UD PRN; Protocol PRN Reason: Hypoglycemia Protocol Stop: 01/04/20 19:04 Glucose (Glucose 40%) 15 - 30 gm PO UD PRN; Protocol PRN Reason: Hypoglycemia Protocol Stop: 01/04/20 19:04 Clindamycin Phosphate 600 mg/ (Dextrose) 54 mls @ 100 mls/hr IV Q8H TA Stop: 12/07/19 21:59 Last Infusion: 12/07/19 07:00 Dose: Infused Documented by: Insulin Aspart (Novolog Flexpen) 0 units SC ACHS [facility] Stop: 01/04/20 19:04 Last Admin: 12/07/19 08:18 Dose: Not Given Documented by: Magnesium Hydroxide (Milk Of Magnesia) 30 ml PO Q12H PRN PRN Reason: Constipation Stop: 01/04/20 19:04 Miscellaneous (Carbohydrates For Hypoglycemia) 15 - 30 gm PO UD PRN PRN Reason: Hypoglycemia Protocol Stop: 01/04/20 19:04 Montelukast Sodium (Singulair) 10 mg PO QPM TA Stop: 01/04/20 20:59 Last Admin: 12/06/19 21:21 Dose: 10 mg Documented by: Multivitamins/Minerals (Multivitamin W/ Minerals Tab) 1 tab PO QAM [facility] Stop: 01/05/20 08:59 Last Admin: 12/07/19 08:42 Dose: 1 tab Documented by: Oxycodone HCl (Roxicodone Immediate Rel) 5 mg PO Q4 PRN PRN Reason: Pain Stop: 12/20/19 15:04 Polyethylene Glycol (Miralax Powder Packet) 17 gm PO DAILY PRN PRN Reason: Constipation Stop: 01/04/20 19:04 Sotalol HCl (Betapace) 240 mg PO BID [facility] Stop: 01/05/20 20:59 Last Admin: 12/07/19 08:42 Dose: 240 mg Documented by: Vitamin D (Vitamin D3) 1,000 units PO QAM [facility] Stop: 01/05/20 08:59 Last Admin: 12/07/19 08:43 Dose: 1,000 units Documented by:
--- NOTE | 2019-12-07 13:20 | Discharge Summary ---
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 She elicits over the past 2-1/2 weeks even minimal ambulation will cause her significant shortness of breath, lightheadedness, dizziness and presyncope. She admits to being very active in her home with cleaning and keeping up with 2 small dogs. She has been unable to do so for the past 2 and half weeks due to not feeling well. She denies any other recent illness, fever, chills, sweats, syncope, palpitations, chest pain, shortness breath at rest, cough, hemoptysis, nausea, vomiting, abdominal pain, change in her bowel or urinary habits. Her appetite has otherwise been normal. Has been taking all medications as prescribed. Due to history of hemochromatosis she does get regular phlebotomy approximately every 3 weeks. She has not had it in the past 6 weeks due to her ferritin level being less than 50. In ED patient remained hemodynamically stable however upon arrival EKG revealed patient to be in third- degree AV block. She did receive IV fluid and repeat EKG revealed patient had return into sinus rhythm and her symptoms had much improved. 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 Admission Exam Per Admitting Provider Constitutional: WD/WN, vitals as above, NAD, sitting up in bed, pleasant, conversing easily Head: Normocephalic, Atraumatic Eyes: PERRL, conjunctivae normal, anicteric sclerae ENMT: external ear and nose normal, oropharynx normal Neck: trachea midline, no thyromegaly normal visual inspection Respiratory: normal respiratory effort, lungs clear to auscultation, no wheeze, rales, rhonchi. Normal insp/exp effort, no accessory muscle use Cardiovascular: RRR, no murmur, no edema Vessels: no JVD or carotid bruit Chest: normal inspection of chest Abdomen: normal bowel sounds, soft, nontender, no hepatosplenomegaly Musculoskeletal: scar to R knee, no cyanosis or clubbing, extremities motor strength 5/5 Skin: no rashes, warm and dry normal turgor Neurologic: PERRL, EOMI, accommodation nl, no face palsy, no dysarthria CN's II-XI intact bilaterally and moves all extremities Psychiatric: A+Ox3, euthymic affect Lymphatic: no cervical or axillary lymphadenopathy : deferred Principal Diagnosis Third degree AV block, status post dual-chamber ICD implantation Discharge Exam Constitutional: Elderly obese female sitting up in the bed, in no acute distress, WD/WN, pleasant, conversing easily Head: Normocephalic, Atraumatic Eyes: PERRL, conjunctivae normal, anicteric sclerae ENMT: external ear and nose normal, oropharynx normal Neck: trachea midline, no thyromegaly normal visual inspection Respiratory: normal respiratory effort, lungs clear to auscultation, no wheeze, rales, rhonchi. Normal insp/exp effort, no accessory muscle use Cardiovascular: RRR, no murmur, no edema Vessels: no JVD or carotid bruit Chest: Incision looks clean dry intact, only slightly tender to palpation around implantation of her icd Abdomen: normal bowel sounds, soft, obese, nontender Musculoskeletal: scar to R knee, no cyanosis or clubbing, extremities motor strength 5/5 Skin: no rashes, warm and dry normal turgor Neurologic: PERRL, EOMI, no face palsy, no dysarthria CN's II-XI intact bilaterally and moves all extremities Psychiatric: A+Ox3, euthymic affect, answers questions appropriately Discharge Data Allergies Allergy/AdvReac Type Severity Reaction Status Date / Time Penicillins Allergy Unknown RASH ALL Verified 12/05/19 11:27 OVER Sulfa (Sulfonamide Allergy Unknown STOMACH Verified 12/05/19 11:27 Antibiotics) ACHES erythromycin base AdvReac Unknown STOMACH Verified 12/05/19 11:27 ACHES loratadine AdvReac Unknown HEART RACE Verified 12/05/19 11:27 morphine AdvReac Unknown INTOLERANT Verified 12/05/19 11:27 pseudoephedrine AdvReac Unknown INTOLERANT Verified 12/05/19 11:27 Consultations 12/05/19 13:02 Consult Cardiology Stat 12/05/19 13:12 ED Decision to Admit Stat 12/05/19 13:30 Consult Cardiology Routine Procedures Performed Operation Date: 12/06/19 13:00 Actual Procedures p ICD Insertion Single or Dual - Osman Echols MD Ordered Studies 12/06/19 14:07 CL Cath Imgs for PACS use only Routine Hospital Course (1) Heart block AV third degree: This is a 69-year-old female who has significant PMH of prediabetes, HTN, HLD, PAF anticoagulant on warfarin, history of PE x2, 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 In ED initial EKG revealed suspected third-degree AV block. Patient symptoms improved after administration of IV fluid and repeat EKG revealed normal sinus rhythm with bifascicular block. 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 Lyme serology negative. [facility] [place] cardiology consulted -Dr. Schneider saw patient and planned for pacemaker placement Now patient is status post dual-chamber ICD implantation 12/06/2019, by Dr. Echols. Sotalol resumed 12/[address] Echols, patient should continue sotalol, warfarin, and start metoprolol succinate 25 mg daily. Will stop digoxin. She can use her as needed metoprolol as previously ordered. Recommend keeping the wound dry in the Steri-Strips intact until follow-up in cardiology clinic next week for wound evaluation. She should also refrain from lifting left arm above the shoulder behind the neck for 6 weeks. (2) Prediabetes: A1c 6.1 05/2019 BSG 160 in ED Monitor accuchecks, ISS per protocol (3) History of pulmonary embolus (PE): hx of PE x 2 in 1996 and 2000 on alf anticoagulation INR therapeutic, 2.4 on 12/05 Continue warfarin (4) Sarcoidosis of lung: Follows pulmonology No acute exacerbation, inhalers as needed (5) Hemochromatosis associated with mutation in HFE gene: Follows Dr. Nancy maki phlebotomy q3 weeks, although last was 6 weeks ago due to ferritin levels being below 50 ferritin level 12/03 44.8 monitor h/h (6) Hypercholesterolemia: continue diet modifications krill oil as outpt not on any statin medication Morbid obesity -with BMI of 49, patient in need of weight loss counseling -Patient states she actually lost 30 pounds over 6 months, then during COVID time she gained about 4 pounds back -She is determined to lose weight, uses a stationary bicycle, she was advised by cardiology, to gradually work her way up back on her usual use of stationary bicycle (7) DVT prophylaxis: SCD/TEDs INR therapeutic, on warfarin Disposition: PCU, plan to discharge home Follow up: PCP Dr. Collins upon discharge Total Time Total Time Spent Total Time Spent (In Minutes): 40 Total Time Includes: Examination of the Patient, Discharge Planning, Medication Reconciliation and Communication With Other Providers Discharge Plan Discharge Items Patient Disposition: Home - Self-Care Reason For Visit: THIRD DEGREE HEART BLOCK Discharge Diagnosis: Third degree AV block, status post dual-chamber ICD implantation Condition on Discharge: Good Activity: Per Instructions section Non-emergency contact: Primary Care Provider and Referral Nurse Call non-emergency contact if: you have any medication questions Follow-up/Referrals: Teresa De Paz MD [Primary Care Provider] - Diet: Carb Consistent or DM2 and Heart Healthy Addtl Attending Provider Instructions: Follow-up with primary care doctor within 1 week. Follow-up with cardiology/device check as discussed with Dr. Echols. Recommend keeping the wound dry in the Steri-Strips intact until follow-up in cardiology clinic next week for wound evaluation. You should also refrain from lifting left arm above the shoulder behind the neck for 6 weeks. You can use a sling which was provided to you in the hospital. It was recommended by Dr. Echols, that you continue to take sotalol and warfarin. You can stop taking digoxin. The new medication is metoprolol succinate 25 mg a day which was sent to your pharmacy. You can also continue to use metoprolol as needed (as previously ) for episodes of atrial fibrillation/ when your heart rate is very high. It was a pleasure taking care of you! Wishing you a speedy recovery. Christal Reece MD Pending Studies at Discharge: No Stand-Alone Forms: My [employer], Smoking Cessation Medications and DC Order Prescriptions: New metoprolol succinate 25 mg tablet extended release 24 hr 25 mg PO DAILY Qty: 30 RF: 0 Continued metoprolol tartrate 50 mg tablet 50 mg PO DIRECTED PRN (Reason: AFIB) RF: 0 epsylbqqzsls-fqphrqvu-kqkayv tablet 1 tab PO QAM RF: 0 cholecalciferol (vitamin D3) 1,000 unit capsule 1,000 units PO QAM RF: 0 Dulera 100-5 mcg/actuation HFA aerosol inhaler 2 puffs INH DIRECTED PRN (Reason: Sob) RF: 0 metformin 500 mg tablet 500 mg PO BID RF: 0 fluticasone propionate [Children's Flonase Allergy Rlf] 50 mcg/actuation spray,suspension 1 sprays INTNAS DAILY PRN (Reason: seasonal allergies) RF: 0 wyvqi-khsxk-1-rri-vab-dnkudm [krill oil] 469-00-39-50 mg capsule 1 cap PO QAM RF: 0 PreserVision AREDS [id number] vuvj-bf-[id number] tablet 1 tab PO QAM RF: 0 montelukast [Singulair] 10 mg tablet 10 mg PO QPM RF: 0 albuterol sulfate [Ventolin HFA] 90 mcg/actuation HFA aerosol inhaler 2 puffs INH QID PRN (Reason: shortness of breath or wheezing) RF: 0 sotalol 160 mg tablet 240 mg PO BID Qty: 270 RF: 3 turmeric 400 mg Capsule 400 mg PO QAM RF: 0 warfarin [Coumadin] 2 mg tablet 1 - 2 mg PO PM RF: 0 Discontinued digoxin 125 mcg (0.125 mg) tablet 125 mcg PO PM RF: 0 Discharge Orders: Discharge Order (Routine); Ordered 12/07/19 Ordered By: Ian Reece Admission Data Admit Date/Time: 12/05/19 13:25 Attending Provider: Ian Reece Admit Provider: Jose Ball Primary Care Provider: Teresa De Paz Other Providers: Bassam Hurt ; Jeff Schneider ; Jose Ball
[2019-12-07] MEDS ORDERED: DIGOXIN 0.125 MG TAB PO SCH (16:00)
== END 2019-12-07 14:11 | disposition home or self-care (01) | DRG 227 ==
LOC: ED 10:18 → 1E 13:25 → SUATTDRO 13:25 → 1E 18:32
PROC: EPB.ICD (2019-12-06 13:00)

== ENCOUNTER 2022-05-30 11:18 | Inpatient (IN) ==
[2022-05-30] MEDS ORDERED: dexAMETHasone**PF** 10 MG/ML VIAL IV ONE (12:35)
[2022-05-30] MEDS ORDERED: IPRATROPIUM BROMIDE/ALBUTEROL respimat INH INH STA (12:35)
[2022-05-30] MEDS ORDERED: guaiFENesin 600 MG TABCR PO STA (12:35)
[2022-05-30] MEDS ORDERED: FAMOTIDINE 20MG IV PUSH 20 MG/5 ML SYR IV STA (12:37)
[2022-05-30] MEDS ORDERED: ONDANSETRON INJ 2 MG/ML 2 ML VIAL IV STA (12:37)
[2022-05-30] MEDS ORDERED: ACETAMINOPHEN 1,000 MG/100 ML VIAL IV STA (12:37)
[2022-05-30] MEDS ORDERED: SODIUM CHLORIDE 0.9% 500 ML IV ONE (12:38)
[2022-05-30 12:46] LABS: Basophils # (auto) 0.01 K/uL (0-0.2); Basophils % (auto) 0.2 %; Hematocrit (blood only) 38.6 % (34.1-44.9); Hemoglobin 12.8 g/dl (12.0-16.0); Immature Granulocytes # (auto) 0.02 K/uL (0.00-0.02); Immature Granulocytes % (auto) 0.5 %; Lymphocytes # (auto) 0.35 K/uL (1.2-3.4); Lymphocytes % (auto) 8.1 %; Mean Corpuscular Hemoglobin 31.3 pg (25.0-34.0); Mean Corpuscular Hgb Conc 33.2 g/dL (32.0-36.0); Mean Corpuscular Volume 94.4 fL (80.0-100.0); Mean Platelet Volume 10.3 fL (9.4-12.3); Monocytes # (auto) 0.38 K/uL (0.24-0.82); Monocytes % (auto) 8.8 %; Neutrophils # (auto) 3.56 K/uL (1.4-6.5); Neutrophils % (auto) 82.4 %; Platelet Count 150 K/uL (130-400); RDW Coefficient of Variation 13.5 % (11.5-14.5); RDW Standard Deviation 46.3 fL (36.4-46.3); Red Blood Count 4.09 M/uL (3.93-5.22); White Blood Count 4.32 K/ul (4.8-10.8)
[2022-05-30 12:53] LABS: Potassium 3.8 mmol/L (3.5-5.1)
[2022-05-30 12:57] LABS: INR 2.2 (0.9-1.1); Prothrombin Time 22.1 Seconds (9.0-12.0)
--- NOTE | 2022-05-30 12:59 | XRay Report ---
XR chest 1V portable CLINICAL HISTORY: Chest pain, nonspecific COMPARISON STUDY: Chest radiograph December 07, 2019. FINDINGS: Left subclavian pacer/AICD is in place. There is mild cardiomegaly. No pneumothorax or pleu ral effusion is present. No consolidation is identified. Reticulonodular interstitial thickening is s imilar to prior exams. Bilateral hilar enlargement remains unchanged. IMPRESSION: No acute cardiopulmonary findings. No change in appearance of the chest. ACT 112: Negative or not required by law. Electronically signed by: John John M.D. 05/30/2022 12:58 PM
[2022-05-30 13:03] LABS: Troponin I High Sensitivity 5.6 pg/ml (0-14)
[2022-05-30 14:10] LABS: Albumin Globulin Ratio 1.2 (0.9-2); Albumin Level 3.7 gm/dl (3.4-5.0); BUN Creatinine Ratio 19.3 (10-20); Bilirubin,Total 0.6 mg/dl (0.2-1.0); Calcium 8.8 mg/dl (8.5-10.1); Creatinine Clr Calc Pharmacy 90.3 ml/min; Est GFR (African American) 76.6 ml/min; Est GFR (Non-African American) 66.1 ml/min; Globulin 3.1 gm/dl (2.5-4.0); Magnesium 1.5 mg/dl (1.7-2.4); Phosphorus 3.1 mg/dl (2.5-4.9); Total Protein 6.8 gm/dl (6.0-8.3)
--- NOTE | 2022-05-30 14:12 | History & Physical Report ---
Date of Service May 30, 2022 Assessment & Plan (1) COVID-19: (2) Acute respiratory failure with hypoxia: (3) Asthma exacerbation: Plan: 71-year-old woman with history of moderate persistent asthma, sarcoidosis, paroxysmal A. fib, hypertension, ICD, history of PE on warfarin, morbid obesity, hematochromatosis with HFE gene mutation, DM type II and other chronic medical problems who presented with cough and shortness of breath that started 3 days ago Hypoxic on presentation Reported home COVID test was positive. Confirmed here CXR did not report new findings. Bilateral hilar findings are also seen in old XR. Likely due to her sarcoidosis Got IV dexamethasone in ER Will continue po dexamethasone 6mg daily Got nebs in ER. Reports some improvement Continue duonebs qid dina x 3 doses and reassess Albuterol inh prn wheezing Currently on 2L/min NC with sats in mid 90s Wean oxygen as tolerated Supportive care with Guaifenesin, tessalon perles, incentive spirometry and flutter No leukocytosis. Procalcitonin <0.05. Hold off antibiotics for now Diarrhea likely due to viral infection If diarrhea persists, send for c diff (4) Atrial fibrillation: (5) History of pulmonary embolus (PE): (6) ICD (implantable cardioverter-defibrillator), dual, in situ: Plan: Continue home metoprolol succinate 25mg daily Telemetry monitoring INR is therapeutic at 2.2. Continue warfarin (7) Hypomagnesemia: Plan: Mag is 1.5 Replete and monitor (8) Diabetes: Plan: Hemoglobin A1c was 5.6 on 02/19/22 per outpatient review Hold home metformin, ozempic ISS while inpatient Carb controlled heart healthy diet Dispo - Med tele Code status - Full code Plan covid 07/15/20, 08/12/20, 03/11/21, 10/23/21, 03/30/22 shingles 07/28, 10/25 History of Present Illness Chief Complaint: Cough, shortness of breath Primary Care Provider: Teresa Collins MD 71-year-old woman with history of moderate persistent asthma, sarcoidosis, paroxysmal A. fib, hypertension, ICD, history of PE on warfarin, morbid obesity, hematochromatosis with HFE gene mutation, DM type II and other chronic medical problems who presented with cough and shortness of breath Reports that cough started 3 days ago, productive of whitish phlegm, associated with chest tightness. She stated that she went to her niece yesterday for dinner. She felt that the food [solid] did not go well with her. Started having nausea, dry heaves and diarrhea since yesterday. This is associated with worsening cough, chest tightness and shortness of breath. Stated that shortness of breath felt like she could not breath out properly Reported headache, ache over left shoulder. Tylenol helped with the headache She reported diarrhea was watery,non bloody Denied vomiting Reported chills but no fever last night Today, she did home COVID test x 2 which she reported came back positive Reported her oxygen sats was in the 80s at home Reports she is fully vaccinated and boosted (07/15/20, 08/12/20, 03/11/21, 10/23/21, 03/30/22) Denied any dysuria, freq, urgency Denied chest pain, palpitation Denied dizziness Denied sorethroat, congestion Allergies Allergy/AdvReac Type Severity Reaction Status Date / Time loratadine Allergy Intermediate HEART RACE Verified 05/07/22 11:25 morphine Allergy Intermediate caused Verified 05/07/22 11:25 jerky body movement Penicillins Allergy Intermediate RASH ALL Verified 05/07/22 11:25 OVER erythromycin base AdvReac Mild STOMACH Verified 05/07/22 11:25 ACHES pseudoephedrine AdvReac Mild INTOLERANT Verified 05/07/22 11:25 Sulfa (Sulfonamide AdvReac Mild STOMACH Verified 05/07/22 11:25 Antibiotics) ACHES Home Medications Medication Instructions Recorded Confirmed Type albuterol sulfate 90 mcg/actuation 2 puffs inhalation QID PRN 02/08/19 05/30/22 History aerosol inhaler (Ventolin HFA) shortness of breath or wheezing cholecalciferol (vitamin D3) 25 1,000 units PO QAM 02/08/19 05/30/22 History mcg (1,000 unit) capsule metformin 500 mg tablet 500 mg PO BID 02/08/19 05/30/22 History warfarin 2 mg tablet (Coumadin) 1 - 2 mg PO PM 12/05/19 05/30/22 History montelukast 10 mg tablet 10 mg PO QAM 03/07/20 05/30/22 History (Singulair) semaglutide 0.25 mg or 0.5 mg (2 0.25 mg subcut WK 08/19/20 05/30/22 History mg/1.5 mL) subcutaneous pen injector (Ozempic) szisnywd-[id number]-fzkhdh 5 mg-zeaxanth 2 cap PO BID 06/16/21 05/30/22 History 1 mg-bilberry 7.5 mg-herbal capsule ([employer] Formula) metoprolol succinate 25 mg 25 mg PO QAM #90 tabs 10/09/21 05/30/22 Rx tablet,extended release 24 hr sotalol 160 mg tablet 240 mg PO BID #270 tabs 04/26/22 05/30/22 Rx metoprolol tartrate 50 mg tablet 50 mg PO DIRECTED PRN AFIB #90 05/19/22 05/30/22 Rx tabs fluticasone propionate 50 mcg inhalation DAILY PRN 05/30/22 05/30/22 History Allergy Symptoms mometasone-formoterol HFA 200 2 inhalation DAILY 05/30/22 History mcg-5 mcg/actuation aerosol inhaler (Dulera) rosuvastatin 10 mg tablet 10 mg PO DAILY 05/30/22 05/30/22 History Past Med/Surg History Medical History Asthma inhaler daily/prn Atrial fibrillation happens intermittently--follows with Dr. Schneider---on metoprolol/reason for ICD Basal cell carcinoma Diabetes mellitus, type 2 Hemochromatosis associated with mutation in HFE gene History of anesthesia reaction difficulty waking History of pulmonary embolus (PE) 1996 and 2000 requiring long-term anticoagulation HTN (hypertension) ICD (implantable cardioverter-defibrillator) in place (~12/2019) [employer] Macular degeneration Morbid obesity with BMI of 45.0-49.9, adult On anticoagulant therapy warfarin daily Sarcoidosis of lung Squamous cell carcinoma Surgical History History of appendectomy History of bronchoscopy History of cardioversion roughly 20yrs ago History of colonoscopy History of dilatation and curettage x5 in 1974 History of hammertoe correction History of implantable cardioverter-defibrillator (ICD) placement (~12/06/19) History of laparoscopic cholecystectomy History of Mohs micrographic surgery for skin cancer x2 History of open reduction and internal fixation (ORIF) procedure right leg fx--hardware in place History of partial hysterectomy History of right knee joint replacement History of squamous cell carcinoma excision History of tooth extraction History of total left hip replacement History of tubal ligation Family History Aunt Breast cancer Mother Alzheimer disease Father Lung cancer Other No family history of adverse response to anesthesia Social History Smoking Status: Never smoker Second Hand Exposure: Yes (parents smoked); Hx Alcohol Use: No Hx Substance Use: No Preferred Language: Sami Communication Ability: Effective Health And Safety Instructor Required: No Beliefs That Will Affect Care: None marital status: Current Living Situation: Spouse Feels Safe at Home: Yes Assistive Devices: Glasses Review of Systems Constitutional: + chills, + body aches and + malaise Eyes: no worsening vision Ear, Nose, Mouth, Throat: + dry mouth; no dizziness Respiratory: + cough and + dyspnea; no pain with cough Cardiovascular: no chest pain, no palpitations and no edema Gastrointestinal: + nausea and + diarrhea/loose stools; no vomiting Genitourinary: no dysuria, no urinary frequency and no urinary urgency Neurologic: + headache(s); no dizziness and no confusion Psychiatric: no depression and no anxiety Physical Exam Constitutional: + well hydrated and + obese; no acute distress Eyes: PERRL, conjunctivae normal, anicteric sclerae ENMT: external ear and nose normal, oropharynx normal Respiratory: normal respiratory effort; no respiratory distress Auscultation: + diminished lung sounds Expiratory rhonchi Cardiovascular: Rate/Rhythm: + irregularly irregular S1 S2 Gastrointestinal (Abdomen): normal bowel sounds, soft, nontender, no hepatosplenomegaly Musculoskeletal: no cyanosis or clubbing, extremities motor strength 5/5 No pedal edema Neurologic: PERRL, EOMI, accommodation nl, no face palsy, no dysarthria Psychiatric: A+Ox3, euthymic affect Results & Data Results & Data ([facility]) Vital Signs (Past 12 Hours) Vital Signs Temp Pulse Pulse Resp BP BP Pulse Ox 05/30/22 11:19 119 H 22 134/89 05/30/22 12:35 119 H 22 91 05/30/22 11:20 91 05/30/22 11:19 88 L 05/30/22 11:21 37.2 C 83 18 146/80 H 92 O2 Del Method O2 Flow Rate 05/30/22 11:19 05/30/22 12:35 Nasal Cannula 2 05/30/22 11:20 Nasal Cannula 2 05/30/22 11:19 Room Air 05/30/22 11:21 Room Air Laboratory Results Abnormal lab results 05/30/22 05/30/22 05/30/22 Range/Units 12:05 12:05 12:05 WBC 4.32 L (4.8-10.8) K/ul Lymph # (Auto) 0.35 L (1.2-3.4) K/uL PT 22.1 H (9.0-12.0) Seconds INR 2.2 H (0.9-1.1) Anion Gap 12 H (3-11) Glucose 123 H (70-99(Fasting)) mg/dl Magnesium 1.5 L (1.7-2.4) mg/dl SARS-CoV-2 (PCR) (Negative) 05/30/22 Range/Units 13:34 WBC (4.8-10.8) K/ul Lymph # (Auto) (1.2-3.4) K/uL PT (9.0-12.0) Seconds INR (0.9-1.1) Anion Gap (3-11) Glucose (70-99(Fasting)) mg/dl Magnesium (1.7-2.4) mg/dl SARS-CoV-2 (PCR) POSITIVE A* (Negative) Diagnostic Findings XR chest 1V portable CLINICAL HISTORY: Chest pain, nonspecific COMPARISON STUDY: Chest radiograph December 07, 2019. FINDINGS: Left subclavian pacer/AICD is in place. There is mild cardiomegaly. No pneumothorax or pleural effusion is present. No consolidation is identified. Reticulonodular interstitial thickening is similar to prior exams. Bilateral hilar enlargement remains unchanged. IMPRESSION: No acute cardiopulmonary findings. No change in appearance of the chest. Code Status & VTE Plan Code Status Full code
[2022-05-30 14:21] LABS: Influenza A virus by PCR Negative (Neg); Influenza B virus by PCR Negative (Neg); RSV by PCR Negative (Neg)
[2022-05-30 14:54] LABS: SARS CoV2 RNA(COVID-19) Ceph POSITIVE (Negative)
[2022-05-30] MEDS ORDERED: MAGNESIUM SULFATE / D5W 1 GM/100 ML BAG IV ONE (15:18)
[2022-05-30] MEDS ORDERED: ACETAMINOPHEN 325 MG TAB PO PRN (17:09)
[2022-05-30] MEDS ORDERED: GLUCOSE 40% GEL 15 GM TUBE PO PRN (17:09)
[2022-05-30] MEDS ORDERED: DEXTROSE 50% 50 ML SYRINGE IV PRN (17:09)
[2022-05-30] MEDS ORDERED: CARBOHYDRATES FOR HYPOGLYCEMIA PO PRN (17:09)
[2022-05-30] MEDS ORDERED: BENZONATATE 100 MG CAPSULE PO PRN (17:09)
[2022-05-30] MEDS ORDERED: GLUCAGON FOR INJ 1 MG VIAL SQ PRN (17:09)
[2022-05-30] MEDS ORDERED: ALBUTEROL HFA 8 GM INHALER INH PRN (17:09)
[2022-05-30] MEDS ORDERED: GLUCOSE 10 TAB/TUBE PO PRN (17:09)
[2022-05-30] MEDS: INSULIN ASPART PER UNIT SC SCH ×2 (18:21→20:44)
[2022-05-30] MEDS: ALBUT/IPRATROP 3MG/0.5MG NEB 3 ML VIAL NEB SCH ×2 (18:24→19:11)
[2022-05-30] MEDS: PROMETHAZINE HCL 12.5 MG in SODIUM CHLORIDE 0.9% 50 ML IV PRN (18:59)
[2022-05-30] MEDS: WARFARIN SOD 1 MG TAB PO SCH (19:02)
[2022-05-30] MEDS: SOTALOL HCL 80 MG TAB PO SCH (20:29)
[2022-05-30] MEDS: CEROVITE ADV FORMULA TAB PO SCH (20:29)
[2022-05-30] MEDS: guaiFENesin 600 MG TABCR PO SCH (20:29)
--- NOTE | 2022-05-30 21:38 | Emergency Department Note ---
Impression & Plan Acute respiratory failure with hypoxia, COVID-19, Asthma exacerbation, Hypomagnesemia ED Provider Note NAME: PHILIP KRUEGER AGE: 71 SEX: F ARRIVES VIA: Walk-In INFORMANT: Patient ED PROVIDER(S): Celestino Rodriguez MD CHIEF COMPLAINT: SOB, Covid-19 PLAN: Disposition: Admit MEDICAL DECISION MAKING: The patient is a pleasant 71-year-old woman with a past medical history of sarcoidosis, atrial fibrillation on warfarin, history of DVT/PE, hypertension, hyperlipidemia, asthma who presents to the emergency department for evaluation of worsening cough, congestion and shortness of breath where she had taken 2 home COVID-19 test that were positive. Patient reports she is fully vaccinated for COVID-19. She reports mild nausea and decreased appetite. She denies any diarrhea. On arrival the patient is uncomfortable but no acute distress, afebrile with O2 saturation down to 88% on room air improving to 96% on nasal cannula. She appears clinically dry to euvolemic. Lungs with wheezes of bilateral lung villar and mild rhonchi of right lower lung villar. EKG is paced without overt acute ischemia. Chest x-ray demonstrates reticular interstitial thickening which is similar to prior however per my review in the current context of a COVID-19 infection this does appear greater right than left and suspicious for COVID-19 pneumonia given the patient's hypoxia. WBC 4.3K with mild lymphopenia 2.35, consistent with COVID-19 infection. H/H and platelets within normal limits. Chemistry without metabolic acidosis. Magnesium 1.5 and electrolytes otherwise unremarkable. High-sensitivity troponin 5.6, within normal limits. BNP within normal limits. Lipase within normal limits. Procalcitonin is undetectable. INR is therapeutic at 2.2. C OVID-19 PCR was positive. Influenza and RSV PCR's were negative. Patient was with gentle IV fluid hydration, Dexamethasone, Combivent, guaifenesin. Patient agrees with plan for admission for further management of her COVID-19 with pneumonia and hypoxia. Case was discussed with Dr. Schreiber, [facility] hospitalist, who will evaluate the patient for admission. Triage Nursing notes reviewed and agree them. Prior medical records reviewed Vital Signs: reviewed Differential diagnosis: Reactive airway disease, pneumonia, pneumothorax, COPD, CHF, infections, cardiac ischemia, pulmonary embolism, musculoskeletal, gastrointestinal, as well as other pathologies. ER treatment provided: See below. Diagnostics interpreted by me: ECG: Atrial sensed, ventricular paced rhythm, 80 bpm, no ectopy, no overt acute ischemia. Cardiac Monitoring: An order for continuous cardiac monitoring was placed and demonstrated atrial sensed, ventricular paced rhythm, 80 bpm, no ectopy Laboratory studies: See below Imaging studies: See below Consultation(s): Dr. Schreiber, [facility] hospitalist HPI: The patient is a pleasant 71-year-old woman with a past medical history of sarcoidosis, atrial fibrillation on warfarin, history of DVT/PE, hypertension, hyperlipidemia, asthma who presents to the emergency department for evaluation of worsening cough, congestion and shortness of breath where she had taken 2 home COVID-19 test that were positive. Patient reports she is fully vaccinated for COVID-19. She reports mild nausea and decreased appetite. She denies any diarrhea. ROS: See above HPI for pertinent positives & negatives. A total of 10 systems reviewed and were otherwise negative. VITALS:See Below PHYSICAL EXAMINATION: GENERAL: Awake, alert, fatigued-appearing, in no distress, BMI 49.6 HENT: Normocephalic, atraumatic. Oropharynx with dry mucous membranes and otherwise unremarkable. EYES: Normal conjunctiva. Sclera non-icteric. NECK: Supple. No nuchal rigidity. FROM. No JVD. RESPIRATORY: Wheezes of bilateral lung villar and mild rhonchi of right lower lung villar. CARDIAC: Regular rate, normal rhythm. Extremities warm and well perfused. Pulses equal. ABDOMEN: Soft, non-distended. No tenderness to palpation. No rebound or guarding. No masses. RECTAL: Deferred. MUSCULOSKELETAL: Chest examination reveals no tenderness. The back is sym metrical on inspection without obvious abnormality. There is no CVA tenderness to palpation. No joint edema. LOWER EXTREMITIES: Calves are equal size bilaterally and non-tender. No edema. No discoloration. NEURO: Normal sensorium. No sensory or motor deficits noted. SKIN: No rash or jaundice noted. ED COURSE: Critical Care: I have personally spent greater than 35 minutes of critical care time in the direct management of this patient. This includes bedside care, interpretation of diagnostic studies, and testing, discussion with consultants, patient, and family members, and other required patient management activities. This 35 minutes is in excess of all separately billable procedures. Celestino Rodriguez MD Past Med/Surg History Medical History Asthma inhaler daily/prn Atrial fibrillation happens intermittently--follows with Dr. 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 Macular degeneration Morbid obesity with BMI of 45.0-49.9, adult On anticoagulant therapy warfarin daily Sarcoidosis of lung Squamous cell carcinoma Surgical History History of appendectomy History of bronchoscopy History of cardioversion roughly 20yrs ago History of colonoscopy History of dilatation and curettage x5 in 1973 History of hammertoe correction History of implantable cardioverter-defibrillator (ICD) placement (~12/06/19) History of laparoscopic cholecystectomy History of Mohs micrographic surgery for skin cancer x2 History of open reduction and internal fixation (ORIF) procedure right leg fx--hardware in place History of partial hysterectomy History of right knee joint replacement History of squamous cell carcinoma excision History of tooth extraction History of total left hip replacement History of tubal ligation Family History Aunt Breast cancer Mother Alzheimer disease Father Lung cancer Other No family history of adverse response to anesthesia Social History Smoking Status: Never smoker Second Hand Exposure: Yes (parents smoked); Hx Alcohol Use: No Hx Substance Use: No Preferred Language: Polish Communication Ability: Effective Director Business Required: No Beliefs That Will Affect Care: None marital status: Current Living Situation: Spouse Feels Safe at Home: Yes Assistive Devices: Glasses Allergies Allergies Allergy/AdvReac Type Severity Reaction Status Date / Time loratadine Allergy Intermediate HEART RACE Verified 05/07/22 11:25 morphine Allergy Intermediate caused Verified 05/07/22 11:25 jerky body movement Penicillins Allergy Intermediate RASH ALL Verified 05/07/22 11:25 OVER erythromycin base AdvReac Mild STOMACH Verified 05/07/22 11:25 ACHES pseudoephedrine AdvReac Mild INTOLERANT Verified 05/07/22 11:25 Sulfa (Sulfonamide AdvReac Mild STOMACH Verified 05/07/22 11:25 Antibiotics) ACHES Home Meds Home Medications Medication Instructions Recorded Confirmed albuterol sulfate 90 mcg/actuation 2 puffs inhalation QID PRN 02/08/19 05/30/22 aerosol inhaler (Ventolin HFA) shortness of breath or wheezing cholecalciferol (vitamin D3) 25 1,000 units PO QAM 02/08/19 05/30/22 mcg (1,000 unit) capsule metformin 500 mg tablet 500 mg PO BID 02/08/19 05/30/22 warfarin 2 mg tablet (Coumadin) 1 - 2 mg PO PM 12/05/19 05/30/22 montelukast 10 mg tablet 10 mg PO QAM 03/07/20 05/30/22 (Singulair) semaglutide 0.25 mg or 0.5 mg (2 0.25 mg subcut WK 08/19/20 05/30/22 mg/1.5 mL) subcutaneous pen injector (Ozempic) [id number] 5 mg-zeaxanth 2 cap PO BID 06/16/21 05/30/22 1 mg-bilberry 7.5 mg-herbal capsule ([facility] Formula) fluticasone propionate 50 mcg inhalation DAILY PRN 05/30/22 05/30/22 Allergy Symptoms mometasone-formoterol HFA 200 2 inhalation DAILY 05/30/22 mcg-5 mcg/actuation aerosol inhaler (Dulera) rosuvastatin 10 mg tablet 10 mg PO DAILY 05/30/22 05/30/22 Previous Rx's Medication Instructions Recorded metoprolol succinate 25 mg 25 mg PO QAM #90 tabs 10/09/21 tablet,extended release 24 hr sotalol 160 mg tablet 240 mg PO BID #270 tabs 04/26/22 metoprolol tartrate 50 mg tablet 50 mg PO DIRECTED PRN AFIB #90 05/19/22 tabs Results & Data (ED) Vital Signs Vital Signs - 24 hr 05/30/22 11:21 05/30/22 11:19 05/30/22 11:20 Temperature 37.2 C Temperature Source Temporal Artery Scan Pulse Rate 83 Pulse Rate [Apical] Respiratory Rate 18 Respiratory Effort / Characteristics Non-Labored Respiratory Depth Normal Respiratory Pattern Regular Blood Pressure 146/80 H Blood Pressure [Right Arm] Blood Pressure Mean 102 Blood Pressure Mean [Right Arm] Blood Pressure Position [Right Arm] Pulse Oximetry 92 88 L 91 Oxygen Delivery Method Room Air Room Air Nasal Cannula Oxygen Flow Rate 2 Sepsis Recent Fever Within 48 Hours No Sepsis New/Unexplained Change in Mental Status N/A Sepsis Action Taken by Nursing No Action Required 05/30/22 12:35 05/30/22 11:19 05/30/22 13:19 Temperature Temperature Source Pulse Rate 119 H Pulse Rate [Apical] 119 H 73 Respiratory Rate 22 22 18 Respiratory Effort / Characteristics Non-Labored Spontaneous Non-Labored Spontaneous Respiratory Depth Normal Normal Respiratory Pattern Regular Regular Blood Pressure Blood Pressure [Right Arm] 134/89 144/74 H Blood Pressure Mean Blood Pressure Mean [Right Arm] 104 97 Blood Pressure Position [Right Arm] Sitting Sitting Pulse Oximetry 91 96 Oxygen Delivery Method Nasal Cannula Nasal Cannula Oxygen Flow Rate 2 2 Sepsis Recent Fever Within 48 Hours Sepsis New/Unexplained Change in Mental Status Sepsis Action Taken by Nursing Laboratory Data Attestation: I reviewed the patient's lab results. Result diagrams: 05/30/22 12:05 05/30/22 12:05 Lab Results 05/30/22 05/30/22 05/30/22 Range/Units 12:05 12:05 12:05 WBC 4.32 L (4.8-10.8) K/ul RBC 4.09 (3.93-5.22) M/uL Hgb 12.8 (12.0-16.0) g/dl Hct 38.6 (34.1-44.9) % MCV 94.4 (80.0-100.0) fL MCH 31.3 (25.0-34.0) pg MCHC 33.2 (32.0-36.0) g/dL RDW Std Deviation 46.3 (36.4-46.3) fL RDW Coeff of Blanca 13.5 (11.5-14.5) % Plt Count 150 (130-400) K/uL MPV 10.3 (9.4-12.3) fL Immature Gran % (Auto) 0.5 % Neut % (Auto) 82.4 % Lymph % (Auto) 8.1 % [place] % (Auto) 8.8 % Eos % (Auto) 0.0 % Baso % (Auto) 0.2 % Neut # (Auto) 3.56 (1.4-6.5) K/uL Lymph # (Auto) 0.35 L (1.2-3.4) K/uL [place] # (Auto) 0.38 (0.24-0.82) K/uL Eos # (Auto) 0.00 (0-0.50) K/uL Baso # (Auto) 0.01 (0-0.2) K/uL Immature Gran # (Auto) 0.02 (0.00-0.02) K/uL PT 22.1 H (9.0-12.0) Seconds INR 2.2 H (0.9-1.1) Sodium 137 (136-145) mmol/L Potassium 3.8 (3.5-5.1) mmol/L Chloride 103 (98-107) mmol/L Carbon Dioxide 22 (21-32) mmol/L Anion Gap 12 H (3-11) BUN 17 (6-23) mg/dl Creatinine 0.88 (0.6-1.2) mg/dl Est Cr Clr Drug Dosing 90.3 ml/min Est GFR ( Amer) 76.6 ml/min Est GFR (Non-Af Amer) 66.1 ml/min BUN/Creatinine Ratio 19.3 (10-20) Glucose 123 H (70-99(Fasting)) mg/dl Calcium 8.8 (8.5-10.1) mg/dl Phosphorus 3.1 (2.5-4.9) mg/dl Magnesium 1.5 L (1.7-2.4) mg/dl Total Bilirubin 0.6 (0.2-1.0) mg/dl AST 27 (13-39) U/L ALT 15 (7-52) U/L Alkaline Phosphatase 58 (34-104) U/L Troponin I High Sens 5.6 (0-14) pg/ml B-Natriuretic Peptide (0-100) pg/ml Total Protein 6.8 (6.0-8.3) gm/dl Albumin 3.7 (3.4-5.0) gm/dl Globulin 3.1 (2.5-4.0) gm/dl Albumin/Globulin Ratio 1.2 (0.9-2) Lipase 30 (11-82) U/L Procalcitonin (0-0.5) ng/ml SARS-CoV-2 (PCR) (Negative) Influenza Type A (PCR) (Neg) Influenza Type B (PCR) (Neg) RSV (RT-PCR) (Neg) 05/30/22 05/30/22 05/30/22 Range/Units 13:34 14:26 14:26 WBC (4.8-10.8) K/ul RBC (3.93-5.22) M/uL Hgb (12.0-16.0) g/dl Hct (34.1-44.9) % MCV (80.0-100.0) fL MCH (25.0-34.0) pg MCHC (32.0-36.0) g/dL RDW Std Deviation (36.4-46.3) fL RDW Coeff of Blanca (11.5-14.5) % Plt Count (130-400) K/uL MPV (9.4-12.3) fL Immature Gran % (Auto) % Neut % (Auto) % Lymph % (Auto) % Bos[place] % (Auto) % Eos % (Auto) % Baso % (Auto) % Neut # (Auto) (1.4-6.5) K/uL Lymph # (Auto) (1.2-3.4) K/uL [place] # (Auto) (0.24-0.82) K/uL Eos # (Auto) (0-0.50) K/uL Baso # (Auto) (0-0.2) K/uL Immature Gran # (Auto) (0.00-0.02) K/uL PT (9.0-12.0) Seconds INR (0.9-1.1) Sodium (136-145) mmol/L Potassium (3.5-5.1) mmol/L Chloride (98-107) mmol/L Carbon Dioxide (21-32) mmol/L Anion Gap (3-11) BUN (6-23) mg/dl Creatinine (0.6-1.2) mg/dl Est Cr Clr Drug Dosing ml/min Est GFR ( Amer) ml/min Est GFR (Non-Af Amer) ml/min BUN/Creatinine Ratio (10-20) Glucose (70-99(Fasting)) mg/dl Calcium (8.5-10.1) mg/dl Phosphorus (2.5-4.9) mg/dl Magnesium (1.7-2.4) mg/dl Total Bilirubin (0.2-1.0) mg/dl AST (13-39) U/L ALT (7-52) U/L Alkaline Phosphatase (34-104) U/L Troponin I High Sens (0-14) pg/ml B-Natriuretic Peptide 49 (0-100) pg/ml Total Protein (6.0-8.3) gm/dl Albumin (3.4-5.0) gm/dl Globulin (2.5-4.0) gm/dl Albumin/Globulin Ratio (0.9-2) Lipase (11-82) U/L Procalcitonin < 0.05 (0-0.5) ng/ml SARS-CoV-2 (PCR) POSITIVE A* (Negative) Influenza Type A (PCR) Negative (Neg) Influenza Type B (PCR) Negative (Neg) RSV (RT-PCR) Negative (Neg) Administered Medications Albuterol (Albut/Ipratrop 3mg/0.5mg Neb 3 Ml Vial) 3 ml NEB QIDR [facility]; Protocol Stop: 05/31/22 07:01 Last Admin: 05/30/22 19:11 Dose: Not Given Documented By: Admin: 05/30/22 18:24 Dose: 3 ml Documented By: MARRY Guaifenesin (Guaifenesin 600 Mg Tabcr) 1,200 mg PO Q12 [facility] Stop: 06/29/22 20:59 Last Admin: 05/30/22 20:29 Dose: 1,200 mg Documented By: MARRY Promethazine HCl 12.5 mg/ (Sodium Chloride) 50.5 mls @ 202 mls/hr IV Q6H PRN PRN Reason: Nausea And Vomiting Stop: 06/29/22 18:44 Last Infusion: 05/30/22 19:14 Dose: 0 mls/hr Documented By: Admin: 05/30/22 18:59 Dose: 202 mls/hr Documented By: MARRY Insulin Aspart (Insulin Aspart Per Unit) 0 units SC ACHS [facility] Stop: 06/29/22 17:08 Last Admin: 05/30/22 20:44 Dose: 2 units Documented By: MARRY Co-signed By: MONICO Admin: 05/30/22 18:21 Dose: 11 units Documented By: MARRY Co-signed By: JOSE Multivitamins/Minerals (Cerovite Adv Formula Tab) 1 tab PO BID TA Stop: 06/29/22 20:59 Last Admin: 05/30/22 20:29 Dose: 1 tab Documented By: MARRY Sotalol HCl (Sotalol Hcl 80 Mg Tab) 240 mg PO BID TA Stop: 06/29/22 20:59 Last Admin: 05/30/22 20:29 Dose: 240 mg Documented By: MARRY Warfarin Sodium (Warfarin Sod 1 Mg Tab) 1 mg PO SuTuThSa@1600 TA Stop: 06/29/22 17:59 Last Admin: 05/30/22 19:02 Dose: 1 mg Documented By: MARRY Discontinued Medications Albuterol (Ipratropium [place]ur/Albuterol Respimat Inh) 2 puffs INH NOW STA Stop: 05/30/22 12:36 Last Admin: 05/30/22 13:22 Dose: 2 puffs Documented By: TIMI Dexamethasone Sodium Phosphate (DexamethasonePf 10 Mg/Ml Vial) 10 mg IV NOW ONE Stop: 05/30/22 12:36 Last Admin: 05/30/22 13:22 Dose: 10 mg Documented By: TIMI Guaifenesin (Guaifenesin 600 Mg Tabcr) 1,200 mg PO NOW STA Stop: 05/30/22 12:36 Last Admin: 05/30/22 13:21 Dose: 1,200 mg Documented By: TIMI Acetaminophen (Ofirmev) 1,000 mg in 100 mls @ 400 mls/hr IV NOW STA Stop: 05/30/22 12:51 Last Infusion: 05/30/22 14:44 Dose: 0 mls/hr Documented By: Admin: 05/30/22 13:21 Dose: 400 mls/hr Documented By: TIMI Famotidine (Pepcid 20mg Iv Push) 20 mg in 5 mls @ 2.5 mls/min IV NOW STA Stop: 05/30/22 12:38 Last Admin: 05/30/22 13:22 Dose: 2.5 mls/min Documented By: TIMI Sodium Chloride (Nss) 500 mls @ 999 mls/hr IV .Q31M ONE Stop: 05/30/22 13:08 Last Infusion: 05/30/22 14:44 Dose: 0 mls/hr Documented By: Admin: 05/30/22 13:22 Dose: 999 mls/hr Documented By: TIMI Magnesium Sulfate/Dextrose (Magnesium Sulfate / D5w) 1 gm in 100 mls @ 50 mls/hr IV ONE ONE Stop: 05/30/22 17:17 Last Infusion: 05/30/22 17:30 Dose: 0 mls/hr Documented By: Admin: 05/30/22 15:32 Dose: 50 mls/hr Documented By: MARRY Ondansetron HCl (Ondansetron Inj 2 Mg/Ml 2 Ml Vial) 4 mg IV NOW STA Stop: 05/30/22 12:38 Last Admin: 05/30/22 13:22 Dose: 4 mg Documented By: TIMI Imaging Data Radiologist's Impression: Chest X-Ray 05/30/22 12:35 XR chest 1V portable CLINICAL HISTORY: Chest pain, nonspecific COMPARISON STUDY: Chest radiograph December 07, 2019. FINDINGS: Left subclavian pacer/AICD is in place. There is mild cardiomegaly. No pneumothorax or pleural effusion is present. No consolidation is identified. Reticulonodular interstitial thickening is similar to prior exams. Bilateral hilar enlargement remains unchanged. IMPRESSION: No acute cardiopulmonary findings. No change in appearance of the chest. ACT 112: Negative or not required by law. Electronically signed by: John John M.D. 05/30/2022 12:58 PM Discharge Plan Visit Data Chief Complaint: Shortness of Breath/Dyspnea Stated Complaint: SOB, AT HOME POSTIVE COVID TEST ED Provider: Celestino Rodriguez Discharge Problem: Acute respiratory failure with hypoxia, COVID-19, Asthma exacerbation, Hypomagnesemia Discharge Instructions Interventions: ED Discharge Assessment Last Done: 05/30/22 17:10
[2022-05-31 04:42] LABS: Hematocrit (blood only) 40.4 % (34.1-44.9); Hemoglobin 13.8 g/dl (12.0-16.0); Mean Corpuscular Hemoglobin 31.9 pg (25.0-34.0); Mean Corpuscular Hgb Conc 34.2 g/dL (32.0-36.0); Mean Corpuscular Volume 93.3 fL (80.0-100.0); Mean Platelet Volume 10.4 fL (9.4-12.3); Platelet Count 168 K/uL (130-400); RDW Coefficient of Variation 13.2 % (11.5-14.5); RDW Standard Deviation 45.5 fL (36.4-46.3); Red Blood Count 4.33 M/uL (3.93-5.22)
[2022-05-31 05:19] LABS: Calcium 8.9 mg/dl (8.5-10.1); Creatinine Clr Calc Pharmacy 104.6 ml/min; Est GFR (African American) 91.5 ml/min; Est GFR (Non-African American) 78.9 ml/min; Potassium 4.1 mmol/L (3.5-5.1)
[2022-05-31] MEDS: ALBUT/IPRATROP 3MG/0.5MG NEB 3 ML VIAL NEB SCH (06:10)
[2022-05-31] MEDS ORDERED: PROMETHAZINE 12.5 MG/50.5 ML NSS IV ONE ×2 (10:06→22:15)
[2022-05-31] MEDS: PROMETHAZINE HCL 12.5 MG in SODIUM CHLORIDE 0.9% 50 ML IV PRN ×2 (10:09→22:19)
[2022-05-31] MEDS: dexAMETHasone 4 MG TAB PO SCH (10:12)
[2022-05-31] MEDS: CHOLECALCIFEROL 1,000 UNITS 25 MCG TAB PO SCH (10:12)
[2022-05-31] MEDS: guaiFENesin 600 MG TABCR PO SCH ×2 (10:13→20:06)
[2022-05-31] MEDS: MONTELUKAST SODIUM 10 MG TABLET PO SCH (10:14)
[2022-05-31] MEDS: METOPROLOL SUCC 25MG EXT REL TAB PO SCH (10:14)
[2022-05-31] MEDS: ROSUVASTATIN CALCIUM 10 MG TAB PO SCH (10:15)
[2022-05-31] MEDS: CEROVITE ADV FORMULA TAB PO SCH ×2 (10:15→20:06)
[2022-05-31] MEDS: SOTALOL HCL 80 MG TAB PO SCH ×2 (10:15→20:05)
[2022-05-31] MEDS: FLUTICASONE/VILANTEROL 200/25MCG 14 PUFFS/INHALER INH SCH (10:16)
[2022-05-31] MEDS: INSULIN ASPART PER UNIT SC SCH ×4 (10:27→23:01)
--- NOTE | 2022-05-31 12:12 | Electrocardiogram Report ---
Test Reason : Blood Pressure : / mmHG Vent. Rate : 080 BPM Atrial Rate : 080 BPM P-R Int : 218 ms QRS Dur : 188 ms QT Int : 484 ms P-R-T Axes : 039 -81 070 degrees QTc Int : 558 ms Atrial-sensed ventricular-paced rhythm with prolonged AV conduction Abnormal ECG When compared with ECG of 05-DEC-2019 12:19, Electronic ventricular pacemaker has replaced Sinus rhythm Confirmed by Jeff Schneider ([id number]) on 05/31/2022 12:12:01 PM Referred By: REFERRED SELF Confirmed By:Jeff Schneider
--- NOTE | 2022-05-31 13:28 | Hospitalist Progress Note ---
Date of Service May 31, 2022 Assessment & Plan (1) COVID-19: (2) Acute respiratory failure with hypoxia: (3) Asthma exacerbation: Plan: 71-year-old woman with history of moderate persistent asthma, sarcoidosis, paroxysmal A. fib, hypertension, ICD, history of PE on warfarin, morbid obesity, hematochromatosis with HFE gene mutation, DM type II and other chronic medical problems who presented with cough and shortness of breath that started 3 days ago Hypoxic on presentation Reported home COVID test was positive. Confirmed here CXR did not report new findings. Bilateral hilar findings are also seen in old XR. Likely due to her sarcoidosis Got IV dexamethasone in ER Got nebs in ER. Continue dexamethasone 6mg daily po Continue nebs prn Albuterol inh prn wheezing Wean oxygen as tolerated Continue supportive care with Guaifenesin, tessalon perles, incentive spirometry and flutter No leukocytosis. Procalcitonin <0.05. Diarrhea likely due to viral infection (4) Atrial fibrillation: (5) History of pulmonary embolus (PE): (6) ICD (implantable cardioverter-defibrillator), dual, in situ: Plan: Continue home metoprolol succinate 25mg daily Telemetry monitoring INR is 2.2 on admission Continue warfarin (7) Hypomagnesemia: Plan: On admission, Mag was 1.5 Repleted. Mag is 2 today (8) Diabetes: Plan: Hemoglobin A1c was 5.6 on 02/19/22 per outpatient review Hold home metformin, ozempic ISS while inpatient Carb controlled heart healthy diet Dispo - Med tele Code status - Full code Plan covid 07/15/20, 08/12/20, 03/11/21, 10/23/21, 03/30/22 shingles 07/28, 10/25 Admission and Anticipated Discharge Date Admission Date: May 30, 2022 Subjective Patient seen and examined Reports feeling better today Still coughing, productive of whitish sputum Reports chest tightness and breathing have improved remarkably Reports mild dyspnea on exertion Has not have any more diarrhea since admission Still has intermittent nausea, resolves with phenergan No vomiting. Denied chest pain, palpitations Denied chills Denied dysuria, freq and urgeny Physical Exam Constitutional: + well hydrated and + obese; no acute distress Eyes: PERRL, conjunctivae normal, anicteric sclerae ENMT: external ear and nose normal, oropharynx normal Respiratory: normal respiratory effort; no respiratory distress Improved air entry Cardiovascular: Rate/Rhythm: + irregularly irregular S1 S2 Gastrointestinal (Abdomen): normal bowel sounds, soft, nontender, no hepatosplenomegaly Musculoskeletal: no cyanosis or clubbing, extremities motor strength 5/5 Neurologic: PERRL, EOMI, accommodation nl, no face palsy, no dysarthria Psychiatric: A+Ox3, euthymic affect Results & Data Results & Data ([facility]) Vital Signs (Past 12 Hours) Vital Signs Pulse Resp BP Pulse Ox O2 Del Method O2 Flow Rate 05/31/22 12:00 62 14 94/62 L 94 Nasal Cannula 2 05/31/22 11:00 62 22 97 Nasal Cannula 2 05/31/22 10:00 60 14 99/62 L 96 Nasal Cannula 2 05/31/22 09:00 65 20 127/90 95 Nasal Cannula 2 05/31/22 08:40 Nasal Cannula 2 05/31/22 08:00 60 21 114/70 98 Nasal Cannula 2 05/31/22 06:11 65 16 95 Nasal Cannula 3 05/31/22 04:00 65 20 129/74 95 Nasal Cannula 2 Laboratory Results Abnormal lab results 05/30/22 05/30/22 05/30/22 Range/Units 12:05 13:34 17:51 WBC (4.8-10.8) K/ul Anion Gap 12 H (3-11) BUN/Creatinine Ratio (10-20) Glucose 123 H (70-99(Fasting)) mg/dl POC Glucose 149 H (70-99) mg/dl Magnesium 1.5 L (1.7-2.4) mg/dl SARS-CoV-2 (PCR) POSITIVE A* (Negative) 05/30/22 05/31/22 05/31/22 Range/Units 20:28 03:51 03:51 WBC 3.80 L (4.8-10.8) K/ul Anion Gap (3-11) BUN/Creatinine Ratio 25.0 H (10-20) Glucose 123 H (70-99(Fasting)) mg/dl POC Glucose 169 H (70-99) mg/dl Magnesium (1.7-2.4) mg/dl SARS-CoV-2 (PCR) (Negative) 05/31/22 Range/Units 07:45 WBC (4.8-10.8) K/ul Anion Gap (3-11) BUN/Creatinine Ratio (10-20) Glucose (70-99(Fasting)) mg/dl POC Glucose 115 H (70-99) mg/dl Magnesium (1.7-2.4) mg/dl SARS-CoV-2 (PCR) (Negative)
[2022-05-31] MEDS: WARFARIN SOD 2 MG TAB PO SCH (17:16)
[2022-06-01 08:44] LABS: Hematocrit (blood only) 41.5 % (34.1-44.9); Hemoglobin 14.3 g/dl (12.0-16.0); Mean Corpuscular Hemoglobin 31.6 pg (25.0-34.0); Mean Corpuscular Hgb Conc 34.5 g/dL (32.0-36.0); Mean Corpuscular Volume 91.6 fL (80.0-100.0); Mean Platelet Volume 10.3 fL (9.4-12.3); Platelet Count 193 K/uL (130-400); RDW Coefficient of Variation 13.2 % (11.5-14.5); RDW Standard Deviation 44.6 fL (36.4-46.3); Red Blood Count 4.53 M/uL (3.93-5.22)
[2022-06-01] MEDS: INSULIN ASPART PER UNIT SC SCH ×4 (08:55→21:38)
[2022-06-01 09:05] LABS: BUN Creatinine Ratio 32.5 (10-20); Calcium 8.8 mg/dl (8.5-10.1); Creatinine Clr Calc Pharmacy 101.8 ml/min; Est GFR (Non-African American) 74.2 ml/min; Potassium 3.8 mmol/L (3.5-5.1)
[2022-06-01] MEDS: CEROVITE ADV FORMULA TAB PO SCH ×2 (09:14→21:17)
[2022-06-01] MEDS: dexAMETHasone 4 MG TAB PO SCH (09:14)
[2022-06-01] MEDS: CHOLECALCIFEROL 1,000 UNITS 25 MCG TAB PO SCH (09:14)
[2022-06-01] MEDS: FLUTICASONE/VILANTEROL 200/25MCG 14 PUFFS/INHALER INH SCH (09:14)
[2022-06-01] MEDS: MONTELUKAST SODIUM 10 MG TABLET PO SCH (09:14)
[2022-06-01] MEDS: METOPROLOL SUCC 25MG EXT REL TAB PO SCH (09:16)
[2022-06-01] MEDS: guaiFENesin 600 MG TABCR PO SCH ×2 (09:17→21:17)
[2022-06-01] MEDS: ROSUVASTATIN CALCIUM 10 MG TAB PO SCH (09:18)
[2022-06-01] MEDS: SOTALOL HCL 80 MG TAB PO SCH ×2 (09:19→21:16)
[2022-06-01 09:23] LABS: INR 2.2 (0.9-1.1); Prothrombin Time 22.2 Seconds (9.0-12.0)
[2022-06-01] MEDS: ALBUT/IPRATROP 3MG/0.5MG NEB 3 ML VIAL NEB PRN (10:20)
[2022-06-01] MEDS: PROMETHAZINE HCL 12.5 MG in SODIUM CHLORIDE 0.9% 50 ML IV PRN (10:39)
--- NOTE | 2022-06-01 11:38 | Hospitalist Progress Note ---
Date of Service June 01, 2022 Assessment & Plan (1) COVID-19: (2) Acute respiratory failure with hypoxia: (3) Asthma exacerbation: Plan: 71-year-old woman with history of moderate persistent asthma, sarcoidosis, paroxysmal A. fib, hypertension, ICD, history of PE on warfarin, morbid obesity, hematochromatosis with HFE gene mutation, DM type II and other chronic medical problems who presented with cough and shortness of breath that started 3 days ago Hypoxic on presentation Reported home COVID test was positive. Confirmed here CXR did not report new findings. Bilateral hilar findings are also seen in old XR. Likely due to her sarcoidosis Got IV dexamethasone in ER Got nebs in ER. Continue dexamethasone 6mg daily po Continue nebs prn Albuterol inh prn wheezing Continue to wean oxygen as tolerated. Will need 2 step prior to dc Continue supportive care with Guaifenesin, tessalon perles, incentive spirometry and flutter No leukocytosis. Procalcitonin <0.05. Diarrhea prior to admission likely due to viral infection (4) Atrial fibrillation: (5) History of pulmonary embolus (PE): (6) ICD (implantable cardioverter-defibrillator), dual, in situ: Plan: Continue home metoprolol succinate 25mg daily INR is 2.2 Continue warfarin (7) Hypomagnesemia: Plan: On admission, Mag was 1.5 Repleted. Monitor (8) Diabetes: Plan: Hemoglobin A1c was 5.6 on 02/19/22 per outpatient review Hold home metformin, ozempic ISS while inpatient Carb controlled heart healthy diet Dispo - Med tele Code status - Full code Plan covid 07/15/20, 08/12/20, 03/11/21, 10/23/21, 03/30/22 shingles 07/28, 10/25 Admission and Anticipated Discharge Date Admission Date: May 30, 2022 Subjective Patient seen and examined Reported some chest tightness earlier this morning that improved with nebs Still coughing, productive of whitish sputum but improving No shortness of breath today Still has intermittent nausea, resolves with phenergan No vomiting, abd pain No diarrhea today Denied chest pain, palpitations Denied dysuria, freq and urgeny Physical Exam Constitutional: + well hydrated and + obese; no acute distress Eyes: PERRL, conjunctivae normal, anicteric sclerae ENMT: external ear and nose normal, oropharynx normal Respiratory: normal respiratory effort; no respiratory distress Improved air entry Cardiovascular: Rate/Rhythm: + irregularly irregular S1 S2 Gastrointestinal (Abdomen): normal bowel sounds, soft, nontender, no hepatosplenomegaly Musculoskeletal: no cyanosis or clubbing, extremities motor strength 5/5 Neurologic: PERRL, EOMI, accommodation nl, no face palsy, no dysarthria Psychiatric: A+Ox3, euthymic affect Results & Data Results & Data ([facility]) Vital Signs (Past 12 Hours) Vital Signs Temp Pulse Resp BP BP Pulse Ox O2 Del Method 06/01/22 10:21 61 20 95 Nasal Cannula 06/01/22 08:12 36.6 C 66 20 109/70 94 Nasal Cannula 06/01/22 03:11 36.8 C 60 18 119/70 99 Nasal Cannula 06/01/22 00:00 Nasal Cannula 06/01/22 00:00 36.5 C 64 18 138/90 93 Nasal Cannula O2 Flow Rate 06/01/22 10:21 2 06/01/22 08:12 4 06/01/22 03:11 1 06/01/22 00:00 1 06/01/22 00:00 1 Laboratory Results Abnormal lab results 05/31/22 05/31/22 06/01/22 Range/Units 18:11 22:09 08:04 PT (9.0-12.0) Seconds INR (0.9-1.1) BUN 26 H (6-23) mg/dl BUN/Creatinine Ratio 32.5 H (10-20) POC Glucose 135 H 110 H (70-99) mg/dl 06/01/22 Range/Units 08:13 PT 22.2 H (9.0-12.0) Seconds INR 2.2 H (0.9-1.1) BUN (6-23) mg/dl BUN/Creatinine Ratio (10-20) POC Glucose (70-99) mg/dl
[2022-06-01] MEDS: WARFARIN SOD 1 MG TAB PO SCH (17:32)
[2022-06-02 06:57] LABS: Hematocrit (blood only) 42.4 % (34.1-44.9); Hemoglobin 14.3 g/dl (12.0-16.0); Mean Corpuscular Hemoglobin 31.6 pg (25.0-34.0); Mean Corpuscular Hgb Conc 33.7 g/dL (32.0-36.0); Mean Corpuscular Volume 93.6 fL (80.0-100.0); Mean Platelet Volume 10.1 fL (9.4-12.3); Platelet Count 172 K/uL (130-400); RDW Coefficient of Variation 13.2 % (11.5-14.5); RDW Standard Deviation 45.2 fL (36.4-46.3); Red Blood Count 4.53 M/uL (3.93-5.22); White Blood Count 5.28 K/ul (4.8-10.8)
[2022-06-02 07:05] LABS: INR 2.3 (0.9-1.1); Prothrombin Time 23.2 Seconds (9.0-12.0)
[2022-06-02 08:00] LABS: BUN Creatinine Ratio 33.3 (10-20); Calcium 8.6 mg/dl (8.5-10.1); Est GFR (African American) 77.7 ml/min; Magnesium 1.9 mg/dl (1.7-2.4); Phosphorus 3.8 mg/dl (2.5-4.9); Potassium 3.7 mmol/L (3.5-5.1)
[2022-06-02] MEDS: FLUTICASONE/VILANTEROL 200/25MCG 14 PUFFS/INHALER INH SCH (08:06)
[2022-06-02] MEDS: INSULIN ASPART PER UNIT SC SCH ×4 (08:15→21:36)
[2022-06-02] MEDS: ALBUT/IPRATROP 3MG/0.5MG NEB 3 ML VIAL NEB PRN (08:22)
[2022-06-02] MEDS: METOPROLOL SUCC 25MG EXT REL TAB PO SCH (08:36)
[2022-06-02] MEDS: CHOLECALCIFEROL 1,000 UNITS 25 MCG TAB PO SCH (08:37)
[2022-06-02] MEDS: SOTALOL HCL 80 MG TAB PO SCH ×2 (08:37→21:17)
[2022-06-02] MEDS: guaiFENesin 600 MG TABCR PO SCH ×2 (08:37→21:11)
[2022-06-02] MEDS: ROSUVASTATIN CALCIUM 10 MG TAB PO SCH (08:37)
[2022-06-02] MEDS: CEROVITE ADV FORMULA TAB PO SCH ×2 (08:37→21:12)
[2022-06-02] MEDS: MONTELUKAST SODIUM 10 MG TABLET PO SCH (08:37)
[2022-06-02] MEDS: dexAMETHasone 4 MG TAB PO SCH (08:37)
[2022-06-02] MEDS: PROMETHAZINE HCL 12.5 MG in SODIUM CHLORIDE 0.9% 50 ML IV PRN (10:07)
[2022-06-02] MEDS: WARFARIN SOD 2 MG TAB PO SCH (17:14)
--- NOTE | 2022-06-02 17:43 | Hospitalist Progress Note ---
Date of Service June 02, 2022 Assessment & Plan (1) COVID-19: (2) Acute respiratory failure with hypoxia: (3) Asthma exacerbation: Plan: Patient is 71 yr female with H/O moderate persistent asthma, sarcoidosis, paroxysmal A. fib, hypertension, ICD, history of PE on warfarin, morbid obesity, hematochromatosis with HFE gene mutation, DM type II and other chronic medical problems who presented with cough and shortness of breath that started 3 days ago. Hypoxic on presentation Acute respiratory failure with hypoxia COVID-19 Infection H/O sarcoidosis --CXR:No acute cardiopulmonary findings. No change in appearance of the chest. Continue dexamethasone Nebs as needed Weaned off of supplemental oxygen May need 2 step prior to discharge Continue pulmonary hygiene (4) Atrial fibrillation: (5) History of pulmonary embolus (PE): (6) ICD (implantable cardioverter-defibrillator), dual, in situ: Plan: Continue metoprolol succinate 25mg daily INR 2.3 Continue warfarin (7) Hypomagnesemia: Plan: Replete and Monitor (8) Diabetes: Plan: Hemoglobin A1c was 5.6 on 02/19/22 per outpatient review Hold home metformin, ozempic ISS while inpatient Carb controlled heart healthy diet Monitor BGs Code status Full code DVT Px: Warfarin Plan covid 07/15/20, 08/12/20, 03/11/21, 10/23/21, 03/30/22 shingles 07/28, 10/25 Admission and Anticipated Discharge Date Admission Date: May 30, 2022 Subjective Patient is seen and examined at bedside States having cough with expectoration Also reports intermittent dizziness with ambulation Nauseous this morning but no vomiting Had minimal dyspnea on exertion Saturating well on room air No other complaints Review of Systems Review of Systems: All systems reviewed & are unremarkable except as noted in Subjective Physical Exam Physical Exam: Physical Exam: Vitals signs as noted above General Appearance:Morbidly Obese, no apparent distress Head: normocephalic, Atraumatic Eyes: normal inspection, EOMI Neck: supple, Trachea midline Respiratory/Chest: Decreased breath sounds, CTA, No accessory muscle use Cardiovascular: S1, S2, No murmur Abdomen/GI:Soft, Non tender, Bowel sounds present Extremities/Musculoskeletal:normal inspection, no edema Neurologic/Psych:AAOX3, grossly no focal neurological deficits Skin: normal color, warm Results & Data Results & Data ([place]) Vital Signs (Past 12 Hours) Vital Signs Temp Pulse Pulse Resp BP BP Pulse Ox 06/02/22 16:37 36.7 C 75 18 143/77 H 95 06/02/22 14:57 78 06/02/22 12:06 37 C 69 20 117/73 94 06/02/22 08:05 06/02/22 08:22 62 18 96 06/02/22 07:57 36.4 C L 64 19 115/70 94 06/02/22 05:59 69 O2 Del Method 06/02/22 16:37 Room Air 06/02/22 14:57 06/02/22 12:06 Room Air 06/02/22 08:05 Room Air 06/02/22 08:22 Room Air 06/02/22 07:57 Room Air 06/02/22 05:59 Laboratory Results Short CBC 06/02/22 Range/Units 06:11 WBC 5.28 (4.8-10.8) K/ul Hgb 14.3 (12.0-16.0) g/dl Hct 42.4 (34.1-44.9) % Plt Count 172 (130-400) K/uL BMP 06/02/22 06:11 Sodium 138 Potassium 3.7 Chloride 105 Carbon Dioxide 26 BUN 29 H Creatinine 0.87 Glucose 85 Calcium 8.6
[2022-06-03] MEDS: INSULIN ASPART PER UNIT SC SCH ×2 (08:56→12:47)
[2022-06-03] MEDS: SOTALOL HCL 80 MG TAB PO SCH (09:03)
[2022-06-03] MEDS: CEROVITE ADV FORMULA TAB PO SCH (09:03)
[2022-06-03] MEDS: guaiFENesin 600 MG TABCR PO SCH (09:04)
[2022-06-03] MEDS: MONTELUKAST SODIUM 10 MG TABLET PO SCH (09:04)
[2022-06-03] MEDS: FLUTICASONE/VILANTEROL 200/25MCG 14 PUFFS/INHALER INH SCH (09:04)
[2022-06-03] MEDS: dexAMETHasone 4 MG TAB PO SCH (09:06)
[2022-06-03] MEDS: CHOLECALCIFEROL 1,000 UNITS 25 MCG TAB PO SCH (09:06)
[2022-06-03] MEDS: ROSUVASTATIN CALCIUM 10 MG TAB PO SCH (09:06)
[2022-06-03] MEDS: METOPROLOL SUCC 25MG EXT REL TAB PO SCH (09:07)
[2022-06-03] MEDS ORDERED: guaiFENesin/DEXTROM SYRUP 200MG/20MG 10ML UDC PO PRN (09:39)
[2022-06-03 10:54] LABS: INR 2.6 (0.9-1.1); Prothrombin Time 26.4 Seconds (9.0-12.0)
[2022-06-03 11:03] LABS: BUN Creatinine Ratio 32.6 (10-20); Creatinine Clr Calc Pharmacy 90.1 ml/min; Est GFR (African American) 78.8 ml/min; Potassium 3.8 mmol/L (3.5-5.1)
--- NOTE | 2022-06-03 12:53 | Hospitalist Progress Note ---
Date of Service June 03, 2022 Assessment & Plan (1) COVID-19: (2) Acute respiratory failure with hypoxia: (3) Asthma exacerbation: Plan: Patient is 71 yr female with H/O moderate persistent asthma, sarcoidosis, paroxysmal A. fib, hypertension, ICD, history of PE on warfarin, morbid obesity, hematochromatosis with HFE gene mutation, DM type II and other chronic medical problems who presented with cough and shortness of breath that started 3 days ago. Hypoxic on presentation Acute respiratory failure with hypoxia COVID-19 Infection Asthma exacerbation H/O sarcoidosis --CXR:No acute cardiopulmonary findings. No change in appearance of the chest. Continue dexamethasone Nebs as needed Weaned off of supplemental oxygen Continue pulmonary hygiene 2 step: Did not qualify for oxygen Saturating well on room air (4) Atrial fibrillation: (5) History of pulmonary embolus (PE): (6) ICD (implantable cardioverter-defibrillator), dual, in situ: Plan: Continue metoprolol succinate 25mg daily INR 2.3 Continue warfarin (7) Hypomagnesemia: Plan: Replete and Monitor (8) Diabetes: Plan: Hemoglobin A1c was 5.6 on 02/19/22 per outpatient review Hold home metformin, ozempic ISS while inpatient Carb controlled heart healthy diet Monitor BGs Code status Full code DVT Px: Warfarin Plan covid 07/15/20, 08/12/20, 03/11/21, 10/23/21, 03/30/22 shingles 07/28, 10/25 Admission and Anticipated Discharge Date Admission Date: May 30, 2022 Subjective Patient is seen and examined at bedside States feeling a lot better today Still has some cough with expectoration Dizziness, dyspnea on exertion resolved Nausea, Chest tightness resolved as well No new complaints Saturating well on room air Review of Systems Review of Systems: All systems reviewed & are unremarkable except as noted in Subjective Physical Exam Physical Exam: Physical Exam: Vitals signs as noted above General Appearance:Morbidly Obese, no apparent distress Head: normocephalic, Atraumatic Eyes: normal inspection, EOMI Neck: supple, Trachea midline Respiratory/Chest: Decreased breath sounds, CTA, No accessory muscle use Cardiovascular: S1, S2, No murmur Abdomen/GI:Soft, Non tender, Bowel sounds present Extremities/Musculoskeletal:normal inspection, no edema Neurologic/Psych:AAOX3, grossly no focal neurological deficits Skin: normal color, warm Results & Data Results & Data ([facility]) Vital Signs (Past 12 Hours) Vital Signs Temp Pulse Pulse Pulse Pulse Pulse Resp 06/03/22 11:31 36.5 C 63 18 06/03/22 10:24 78 74 68 06/03/22 10:17 06/03/22 08:19 36.4 C L 65 19 06/03/22 07:13 60 06/03/22 03:16 36.5 C 69 18 Resp Resp Resp BP BP Pulse Ox Pulse Ox 06/03/22 11:31 132/68 97 06/03/22 10:24 22 20 18 100 06/03/22 10:17 06/03/22 08:19 138/75 95 06/03/22 07:13 06/03/22 03:16 117/72 94 Pulse Ox Pulse Ox O2 Del Method 06/03/22 11:31 Room Air 06/03/22 10:24 98 96 06/03/22 10:17 Room Air 06/03/22 08:19 Room Air 06/03/22 07:13 06/03/22 03:16 Room Air Laboratory Results [facility] 06/03/22 09:49 Sodium 136 Potassium 3.8 Chloride 105 Carbon Dioxide 22 BUN 28 H Creatinine 0.86 Glucose 126 H Calcium 9.0
--- NOTE | 2022-06-03 13:01 | Discharge Summary ---
Date of Service June 03, 2022 Admission HPI Per Admitting Provider 71-year-old woman with history of moderate persistent asthma, sarcoidosis, paroxysmal A. fib, hypertension, ICD, history of PE on warfarin, morbid obesity, hematochromatosis with HFE gene mutation, DM type II and other chronic medical problems who presented with cough and shortness of breath Reports that cough started 3 days ago, productive of whitish phlegm, associated with chest tightness. She stated that she went to her niece yesterday for dinner. She felt that the food [solid] did not go well with her. Started having nausea, dry heaves and diarrhea since yesterday. This is associated with worsening cough, chest tightness and shortness of breath. Stated that shortness of breath felt like she could not breath out properly Reported headache, ache over left shoulder. Tylenol helped with the headache She reported diarrhea was watery,non bloody Denied vomiting Reported chills but no fever last night Today, she did home COVID test x 2 which she reported came back positive Reported her oxygen sats was in the 80s at home Reports she is fully vaccinated and boosted (07/15/20, 08/12/20, 03/11/21, 10/23/21, 03/30/22) Denied any dysuria, freq, urgency Denied chest pain, palpitation Denied dizziness Denied sorethroat, congestion Admission Exam Per Admitting Provider Physical Exam Constitutional: + well hydrated and + obese; no acute di stress Eyes: PERRL, conjunctivae normal, anicteric sclerae ENMT: external ear and nose normal, oropharynx normal Respiratory: normal respiratory effort; no respiratory distress Auscultation: + diminished lung sounds Expiratory rhonchi Cardiovascular: Rate/Rhythm: + irregularly irregular S1 S2 Gastrointestinal (Abdomen): normal bowel sounds, soft, nontender, no hepatosplenomegaly Musculoskeletal: no cyanosis or clubbing, extremities motor strength 5/5 No pedal edema Neurologic: PERRL, EOMI, accommodation nl, no face palsy, no dysarthria Psychiatric: A+Ox3, euthymic affect Principal Diagnosis Acute respiratory failure with hypoxia COVID-19 Infection Asthma exacerbation Discharge Data Allergies Allergy/AdvReac Type Severity Reaction Status Date / Time loratadine Allergy Intermediate HEART RACE Verified 05/07/22 11:25 morphine Allergy Intermediate caused Verified 05/07/22 11:25 jerky body movement Penicillins Allergy Intermediate RASH ALL Verified 05/07/22 11:25 OVER erythromycin base AdvReac Mild STOMACH Verified 05/07/22 11:25 ACHES pseudoephedrine AdvReac Mild INTOLERANT Verified 05/07/22 11:25 Sulfa (Sulfonamide AdvReac Mild STOMACH Verified 05/07/22 11:25 Antibiotics) ACHES Consultations 05/30/22 13:13 ED Decision to Admit Stat Procedures Performed Laboratory Results WBC 5.28 K/ul (4.8-10.8) 06/02/22 06:11 RBC 4.53 M/uL (3.93-5.22) 06/02/22 06:11 Hgb 14.3 g/dl (12.0-16.0) 06/02/22 06:11 Hct 42.4 % (34.1-44.9) 06/02/22 06:11 MCV 93.6 fL (80.0-100.0) 06/02/22 06:11 MCH 31.6 pg (25.0-34.0) 06/02/22 06:11 MCHC 33.7 g/dL (32.0-36.0) 06/02/22 06:11 RDW Std Deviation 45.2 fL (36.4-46.3) 06/02/22 06:11 RDW Coeff of Blanca 13.2 % (11.5-14.5) 06/02/22 06:11 Plt Count 172 K/uL (130-400) 06/02/22 06:11 MPV 10.1 fL (9.4-12.3) 06/02/22 06:11 Immature Gran % (Auto) 0.5 % 05/30/22 12:05 Neut % (Auto) 82.4 % 05/30/22 12:05 Lymph % (Auto) 8.1 % 05/30/22 12:05 [place] % (Auto) 8.8 % 05/30/22 12:05 Eos % (Auto) 0.0 % 05/30/22 12:05 Baso % (Auto) 0.2 % 05/30/22 12:05 Neut # (Auto) 3.56 K/uL (1.4-6.5) 05/30/22 12:05 Lymph # (Auto) 0.35 K/uL (1.2-3.4) L 05/30/22 12:05 [place] # (Auto) 0.38 K/uL (0.24-0.82) 05/30/22 12:05 Eos # (Auto) 0.00 K/uL (0-0.50) 05/30/22 12:05 Baso # (Auto) 0.01 K/uL (0-0.2) 05/30/22 12:05 Immature Gran # (Auto) 0.02 K/uL (0.00-0.02) 05/30/22 12:05 PT 26.4 Seconds (9.0-12.0) H 06/03/22 09:49 INR 2.6 (0.9-1.1) H 06/03/22 09:49 Sodium 136 mmol/L (136-145) 06/03/22 09:49 Potassium 3.8 mmol/L (3.5-5.1) 06/03/22 09:49 Chloride 105 mmol/L (98-107) 06/03/22 09:49 Carbon Dioxide 22 mmol/L (21-32) 06/03/22 09:49 Anion Gap 9 (3-11) 06/03/22 09:49 BUN 28 mg/dl (6-23) H 06/03/22 09:49 Creatinine 0.86 mg/dl (0.6-1.2) 06/03/22 09:49 Est Cr Clr Drug Dosing 90.1 ml/min 06/03/22 09:49 Est GFR ( Amer) 78.8 ml/min 06/03/22 09:49 Est GFR (Non-Af Amer) 68.0 ml/min 06/03/22 09:49 BUN/Creatinine Ratio 32.6 (10-20) H 06/03/22 09:49 Glucose 126 mg/dl (70-99(Fasting)) H 06/03/22 09:49 POC Glucose 111 mg/dl (70-99) H 06/03/22 11:06 Calcium 9.0 mg/dl (8.5-10.1) 06/03/22 09:49 Phosphorus 3.8 mg/dl (2.5-4.9) 06/02/22 06:11 Magnesium 1.9 mg/dl (1.7-2.4) 06/02/22 06:11 Total Bilirubin 0.6 mg/dl (0.2-1.0) 05/30/22 12:05 AST 27 U/L (13-39) 05/30/22 12:05 ALT 15 U/L (7-52) 05/30/22 12:05 Alkaline Phosphatase 58 U/L (34-104) 05/30/22 12:05 Troponin I High Sens 5.6 pg/ml (0-14) 05/30/22 12:05 B-Natriuretic Peptide 49 pg/ml (0-100) 05/30/22 14:26 Total Protein 6.8 gm/dl (6.0-8.3) 05/30/22 12:05 Albumin 3.7 gm/dl (3.4-5.0) 05/30/22 12:05 Globulin 3.1 gm/dl (2.5-4.0) 05/30/22 12:05 Albumin/Globulin Ratio 1.2 (0.9-2) 05/30/22 12:05 Lipase 30 U/L (11-82) 05/30/22 12:05 Procalcitonin < 0.05 ng/ml (0-0.5) 05/30/22 14:26 SARS-CoV-2 (PCR) POSITIVE (Negative) A* 05/30/22 13:34 Influenza Type A (PCR) Negative (Neg) 05/30/22 13:34 Influenza Type B (PCR) Negative (Neg) 05/30/22 13:34 RSV (RT-PCR) Negative (Neg) 05/30/22 13:34 Impressions Chest X-Ray 05/30/22 12:35 XR chest 1V portable CLINICAL HISTORY: Chest pain, nonspecific COMPARISON STUDY: Chest radiograph December 07, 2019. FINDINGS: Left subclavian pacer/AICD is in place. There is mild cardiomegaly. No pneumothorax or pleural effusion is present. No consolidation is identified. Reticulonodular interstitial thickening is similar to prior exams. Bilateral hilar enlargement remains unchanged. IMPRESSION: No acute cardiopulmonary findings. No change in appearance of the chest. ACT 112: Negative or not required by law. Electronically signed by: John John M.D. 05/30/2022 12:58 PM Hospital Course (1) COVID-19: (2) Acute respiratory failure with hypoxia: (3) Asthma exacerbation: Patient is 71 yr female with H/O moderate persistent asthma, sarcoidosis, paroxysmal A. fib, hypertension, ICD, history of PE on warfarin, morbid obesity, hematochromatosis with HFE gene mutation, DM type II and other chronic medical problems who presented with cough and shortness of breath that started 3 days ago. Hypoxic on presentation Acute respiratory failure with hypoxia COVID-19 Infection Asthma exacerbation H/O sarcoidosis --CXR:No acute cardiopulmonary findings. No change in appearance of the chest. Continue dexamethasone Nebs as needed Weaned off of supplemental oxygen Continue pulmonary hygiene 2 step: Did not qualify for oxygen Saturating well on room air (4) Atrial fibrillation: (5) History of pulmonary embolus (PE): (6) ICD (implantable cardioverter-defibrillator), dual, in situ: Continue metoprolol succinate 25mg daily INR 2.3 Continue warfarin (7) Hypomagnesemia: Replete and Monitor (8) Diabetes: Hemoglobin A1c was 5.6 on 02/19/22 per outpatient review Hold home metformin, ozempic ISS while inpatient Carb controlled heart healthy diet Monitor BGs Code status Full code DVT Px: Warfarin Plan covid 07/15/20, 08/12/20, 03/11/21, 10/23/21, 03/30/22 shingles 07/28, 10/25 Total Time Total Time Spent Total Time Spent (In Minutes): 50 minutes Discharge Plan Discharge Items Patient Disposition: Home - Self-Care Reason For Visit: COUGH, SHORTNESS OF BREATH Discharge Diagnosis: Acute respiratory failure with hypoxia COVID-19 Infection Asthma exacerbation Activity: Per Instructions section Exercise/Sports: Wait until after follow-up appointment Non-emergency contact: Primary Care Provider Call non-emergency contact if: you have any medication questions, your symptoms worsen, your pain is concerning for you and you have a fever Follow-up/Referrals: Teresa Collins MD [Primary Care Provider] - Diet: Carb Consistent or DM2 and Heart Healthy Addtl Attending Provider Instructions: Follow-up with your primary care physician in 1 week as advised Seek immediate medical attention if your symptoms reoccur or worsen Please take all medications as instructed on discharge list below. Please call if you have any questions or problems. You can reach a [facility] hospitalist on duty at [facility] 24 hours a day by calling [phone] Home Isolation COVID-19 Instructions The following information about Home Isolation is from the CDC Website: https://www.cdc.gov/coronavirus/2019-ncov/hcp/rdtimtwf-tbmwgjl-uefgnc.html Stay home except to get medical care People who are mildly ill with COVID-19 are able to isolate at home during their illness. You should restrict activities outside your home, except for getting medical care. Do not go to work, school, or public areas. Avoid using public transportation, ride-sharing, or taxis. Separate yourself from other people and animals in your home People: As much as possible, you should stay in a specific room and away from other people in your home. Also, you should use a separate bathroom, if available. Animals: You should restrict contact with pets and other animals while you are sick with COVID-19, just like you would around other people. Although there have not been reports of pets or other animals becoming sick with COVID-19, it is still recommended that people sick with COVID-19 limit contact with animals until more information is known about the virus. When possible, have another member of your household care for your animals while you are sick. If you are sick with COVID-19, avoid contact with your pet, including petting, snuggling, being kissed or licked, and sharing food. If you must care for your pet or be around animals while you are sick, wash your hands before and after you interact with pets and wear a face mask. Call ahead before visiting your doctor If you have a medical appointment, call the healthcare provider and tell them that you have or may have COVID-19. This will help the healthcare providers office take steps to keep other people from getting infected or exposed. Wear a face mask You should wear a face mask when you are around other people (e.g., sharing a room or vehicle) or pets and before you enter a healthcare providers office. If you are not able to wear a face mask (for example, because it causes trouble breathing), then people who live with you should not stay in the same room with you, or they should wear a face mask if they enter your room. Cover your coughs and sneezes Cover your mouth and nose with a tissue when you cough or sneeze. Throw used tissues in a lined trash can. Immediately wash your hands with soap and water for at least 20 seconds or, if soap and water are not available, clean your hands with an alcohol-based hand pulp mill team leader that contains at least 60% alcohol. Clean your hands often Wash your hands often with soap and water for at least 20 seconds, especially after blowing your nose, coughing, or sneezing; going to the bathroom; and before eating or preparing food. If soap and water are not readily available, use an alcohol-based hand pulp mill team leader with at least 60% alcohol, covering all surfaces of your hands and rubbing them together until they feel dry. Soap and water are the best option if hands are visibly dirty. Avoid touching your eyes, nose, and mouth with unwashed hands. Avoid sharing personal household items You should not share dishes, drinking glasses, cups, eating utensils, towels, or bedding with other people or pets in your home. After using these items, they should be washed thoroughly with soap and water. Clean all high-touch surfaces everyday High touch surfaces include counters, tabletops, doorknobs, bathroom fixtures, toilets, phones, keyboards, tablets, and bedside tables. Also, clean any surfaces that may have blood, stool, or body fluids on them. Use a household cleaning spray or wipe, according to the label instructions. Labels contain instructions for safe and effective use of the cleaning product including precautions you should take when applying the product, such as wearing gloves and making sure you have good ventilation during use of the product. Monitor your symptoms Seek prompt medical attention if your illness is worsening (e.g., difficulty breathing).Beforeseeking care, call your healthcare provider and tell them that you have, or are being evaluated for, COVID-19. Put on a face mask before you enter the facility. These steps will help the healthcare providers office to keep other people in the office or waiting room from getting infected or exposed. Ask your healthcare provider to call the local or [facility] health department. Persons who are placed under active monitoring or facilitated self- monitoring should follow instructions provided by their local health department or occupational health professionals, as appropriate. When working with your local health department check their available hours. If you have a medical emergency and need to call 911, notify the dispatch personnel that you have, or are being evaluated for COVID-19. If possible, put on a face mask before emergency medical services arrive. Discontinuing home isolation Patients with confirmed COVID-19 should remain under home isolation precautions until the risk of secondary transmission to others is thought to be low. The decision to discontinue home isolation precautions should be made on a [id number] basis, in consultation with healthcare providers and state and local health departments. Coronavirus disease 2019 (COVID-19) is a virus that causes a respiratory illness. It is caused by a coronavirus called 2019 novel coronavirus (2019- nCoV). There are many types of coronavirus. Coronaviruses are a very common cause of bronchitis. They may sometimes cause lung infection(pneumonia). Symptoms can range from mild to severe respiratory illness. These viruses are also foundin some animals. COVID-19 was first found in people in [facility], in late 2018. In 2020, several cases of COVID-19 have been confirmed in the [place] Public health officials are working to find the source. How the virus spreads is not yet fully known. It may be spread through droplets of fluid that a person coughs or sneezes into the air. It may be spread if you touch a surface with virus on it, such as a handle or object, and then touch your mouth. What are the symptoms of COVID-19? Some people have no symptoms or mild symptoms. Symptoms may appear 2 to 14 days after contact with the virus. Symptoms can include: Fever Coughing Trouble breathing What are possible complications from COVID-19? In many cases, this virus can cause infection (pneumonia) in both lungs. In some cases, this can cause . How is COVID-19 diagnosed? Your healthcare provider will ask about your symptoms. He or she will also ask about your recent travel and contact with sick people. Testing for the virus is only done through the CDC. If yourhealthcare provider thinks you may have COVID- 19, he or she will work with your local health department and the CDC on testing. Follow all instructions from your healthcare provider. COVID-19 is diagnosed by: Nasal and throat swab. A cotton-tipped swab is wiped inside your nose or throat. This is done to check for viruses in your nasal mucus. Sputum culture. A small sample of mucus coughed from your lungs (sputum) is collected if you have a cough. It is checked for the virus. How is COVID-19 treated? There is currently no medicine to treat the virus. Treatment is done to help your body while it fights the virus. This is known as supportive care. Supportive care may include: Pain medicine. These include acetaminophen and ibuprofen. They are used to help ease pain and reduce fever. Bed rest. This helps your body fight the illness. For severe illness, you may need to stay in the hospital. Care during severe illness may include: IV (intravenous) fluids.These are given through a vein to help keep your body hydrated. Oxygen. Supplemental oxygen or ventilation with a breathing machine (ventilator) may be given. This is done to keep enough oxygen in your body. Are you at risk for COVID-19? If youve been to a place where people have been sick with this virus, you are at risk for infection. You are at risk if you: Recently traveled to an affected area Had contact with a sick person who recently traveled to this area Had contact with a person who was diagnosed with COVID-19 How can COVID-19 be prevented? There is no vaccine yet. The best prevention is to not have contact with the virus. The CDC advises that people should not travel to areas where there are COVID-19 outbreaks right now for any reason that is not urgent. To help prevent spreading the infection, wash your hands often, or use an alcohol-basedhand pulp mill team leader. If you are in an area with COVID-19: Wash your hands often. Or use an alcohol-based hand pulp mill team leader often. Only touch your eyes, nose, or mouth with clean hands. Dont have contact with people who are sick. Follow local instructions about being in public. For example, you may be told to not use public transport for a period of time. Stay away from markets that have live or animals. Wash your hands after touching any animals. Don't touch animals that may be sick. Dont share eating or drinking tools with sick people. Dont kiss someone who is sick. Clean surfaces often with disinfectant. If you were in an area with COVID-19 in the last 14 days: Call your healthcare provider. He or she can talk with local health staff to see what action may be needed. Follow all instructions from your provider. Take your temperature every morning and evening for at least 14 days. This is to check for fever. Keep a record of the readings. Keep watch for symptoms of the virus. Tell your provider right away if you have symptoms. If you were in an area with COVID-19 and have a fever or other symptoms: Dont panic. Keep in mind that other illnesses can cause similar symptoms. Stay away from work, school, and public places. Limit physical contact with family members. Don't kiss anyone or share eating or drinking utensils. Clean surfaces you touch with disinfectant. This is to help prevent the virus from spreading. Call your healthcare provider. Explain that you have been exposed to COVID-19 and have symptoms. Do this before going to any hospital. Wait for instructions. Keep in mind that healthcare staff may wear protective equipment such as masks, gowns, gloves, and eye protection. You may be put in a separate room. This is to prevent the possible virus from spreading. Tell the healthcare staff about recent travel. This includes local travel on public transport. Staff may need to find other people you have been in contact with. Follow all instructions the healthcare staff give you. If you have been diagnosed with COVID-19 Follow all instructions from your healthcare provider. Dont leave your home, except to get medical care. Call your healthcare providers office before going. They can prepare and give you instructions. This will help prevent the virus from spreading. Dont go to work, school, or public areas. Dont use public transport or taxis. Stay away from other people in your home. Have them wear face masks around you. Dont share household items or food. Wear a face mask if you can. This includes at home or in a medical facility. Cover your face with a tissue when you cough or sneeze. Throw the tissue away. Wash your hands. Wash your hands often. Caregivers should: Follow all instructions from healthcare staff. Wear a face mask and protective clothing as advised. Wash hands often. Keep track of the sick persons symptoms. Clean surfaces, fabrics, and laundry thoroughly. Keep other people away from the sick person. When to call your healthcare provider Call your healthcare provider: If youve recently traveled and have symptoms If you have been diagnosed with COVID-19 and your symptoms are worse To learn more To find out more about COVID-19, visit the CDC website at www.cdc.gov/coronavirus/2019-ncov/index.html. [employer]. [address] [place] [address], [place] [address]. All rights reserved. This information is not intended as a substitute for professional medical care. Always follow your healthcare professional's instructions. This information has been adapted from [employer] Pending Studies at Discharge: No Stand-Alone Forms: My [facility] [employer], Smoking Cessation Medications and DC Order Prescriptions: New benzonatate 100 mg Capsule 100 mg PO TID PRN (Reason: cough) Qty: 30 0RF Continued cholecalciferol (vitamin D3) 1,000 unit capsule 1,000 units PO QAM metformin 500 mg tablet 500 mg PO BID montelukast [Singulair] 10 mg tablet 10 mg PO QAM sotalol 160 mg tablet 240 mg PO BID Qty: 270 3RF metoprolol tartrate 50 mg tablet 50 mg PO DIRECTED PRN (Reason: AFIB) Qty: 90 3RF Ozempic 0.25 mg or 0.5 mg(2 mg/1.5 mL) pen injector 0.25 mg subcut WK Rx Instructions: Tuesday metoprolol succinate 25 mg tablet extended release 24 hr 25 mg PO QAM Qty: 90 3RF warfarin [Coumadin] 2 mg tablet 1 - 2 mg PO PM Rx Instructions: Take 2mg Tue/Tue/Tue Take 1mg /Tue/Tue/Sun [facility] Formula 5-1-7.5 mg Capsule 2 cap PO BID rosuvastatin 10 mg tablet 10 mg PO DAILY Dulera 200-5 mcg/actuation Hfa Aerosol Inhaler 2 INHALATION DAILY fluticasone propionate 50 mcg inhalation DAILY PRN (Reason: Allergy Symptoms) albuterol sulfate [Ventolin HFA] 90 mcg/actuation HFA aerosol inhaler 2 puffs INH QID PRN (Reason: shortness of breath or wheezing) Qty: 8.5 2RF Discharge Orders: Discharge Order (Routine); Ordered 06/03/22 Ordered By: Moisés Waldron Admission Data Admit Date/Time: 05/30/22 14:31 Attending Provider: Moisés Waldron Admit Provider: Roselyn Schreiber I. Primary Care Provider: Teresa Collins Other Providers: Esteban Kang
== END 2022-06-03 14:01 | disposition home or self-care (01) | DRG 177 ==
LOC: ED 11:18 → SUATTDRO 14:31 → EDINP 14:31 → 2W 05-31 17:10

== ENCOUNTER 2024-08-04 14:41 | Inpatient (IN) ==
--- OUTSIDE RECORDS SUMMARY | 2024-08-04 14:48 | External Medical Summary ---
Author Name Unknown Address Unknown Organization : Laboratory Report Ordering Provider Test Date Status SAM ALLISON 07/27/2024 11:06:04 Final Therapeutic ranges for non-o perative patients:
Prophylaxsis/treatment of DVT: (Range:2.0-3.0)
Treatment of pulmonary embolism:(Range:2.0-3.0)
Prevention of systemic embolism from:
-tissue heart valves
-acute myocardial infarction
-valvular heart disease
-atrial fibrillation
(Range: 2.0-3.0)
Mechanical prosthetic valves: (Range: 2.5-3.5) Observation Date Value Abnormality Reference (Units ) Status INR in Capillary blood by Coagulation assay 07/27/2024 11:06:04 2.4 (INR) Final Performing Location
--- OUTSIDE RECORDS SUMMARY | 2024-08-04 14:48 | External Medical Summary | Summary of Care ---
Author Name Unknown Organization [facility] Address [address] [place] [place] [address] Phone [phone] Care Team Providers Care Manager Language Name Role Phone Teresa Collins MD Primary Care Provider [phone] Reason for Visit * Reason Comments Dosage Adjustment In Person (Anticoag Cl inic) Encounter Details Date Type Department Care Team (Late st Contact Info) Description 07/27/2024 11:00 AM [facility] [place] Anticoagulation Pharmacy, [address] [place] [address] Pharmacist2, [address] [place] [address] Anticoagulation management encounter*; Paroxysmal atrial fibrillation (HCC); History of pulmonary embolus (PE) Allergies Active Allergy Reactions Criticality Noted Date Comments Loratadine-Pseudoephedrin e Er Other (Please comment) Medium 03/16/2010 Heart fluttering Erythromycin 08/25/2001 gi upset Loratadine 12/18/2020 Other reaction(s): HEART RACE Penicillins 06/30/2001 rash Pseudoephedrine 12/18/2020 Other reaction(s): INTOLERANT Sulfa Antibiotics 10/30/2016 Other reaction(s): STOMACH ACHES Sulfamethoxazole W/Trimethoprim (Co-Trimoxazole) 06/30/2001 H/A documented as of this encounter (statuses as of 07/27/2024) Medications ARTIFICIAL TEARS OP SOLN Instill into both eyes as needed (dry eyes). 1 bottle 5 11/26/19 06 Active sotalol (BETAPACE) 160 MG TabletIndications :Paroxysmal atrial fibrillation (HCC) One and one half tablets twice daily since 02/18 DrEaton 02/20/20 15 Active Fluocinonide 0.05 % ointmentIndicatio ns:Dermatitis Apply to rash on the leg twice daily as needed for itching or flares. 30 g 1 03/14/20 18 Active metoprolol succinate XL (TOPROL XL) 25 MG TB24 Take 1 Tablet by mouth in the morning. 01/01/20 20 Active metoprolol tartrate (LOPRESSOR) 50 MG Tablet Take 1 Tablet by mouth daily as needed (A-fib symptoms). Active Ventolin HFA 108 (90 Base) MCG/ACT Inhalation Aerosol SolutionIndicatio ns:Asthma, moderate persistent,Sarcoi dosis of lung (HCC) TAKE 2 PUFFS BY MOUTH EVERY 4 HOURS NEEDED ,SHAKE WELL. 18 g 1 09/13/19 21 Active Macular Health Formula Oral CapsuleIndication s:Bilateral nonexudative age-related macular degeneration, unspecified stage Take by mouth 2 times a day. 2 capsules 2 times a day Active Urea 10 % External CreamIndications: Dry skin dermatitis Apply to dry areas on feet daily -st 05/03/2022 05/03/20 22 Active Fluticasone-Salme terol 500-50 MCG/ACT Inhalation Aerosol Powder Breath Activated (Wixela Inhub)Indications :Sarcoidosis of lung (HCC),Moderate persistent asthma without complication,Hist ory of pulmonary embolus (PE) Inhale 1 Puff by mouth in the morning and 1 Puff before bedtime. --st 06/28/2022 as dulera is NF. 60 Each 06/28/19 23 Active Additional Information Patient taking differently:1 Puff InhalationPRN, wheezing, Pt taking as needed, Reported on 02/14/2023 Fexofenadine HCl 180 MG Oral Tablet (Rosa Allergy) Take 1 Tablet by mouth in the morning. Active Montelukast Sodium 10 MG Oral Tablet (Singulair) TAKE ONE TABLET BY MOUTH EVERY MORNING 90 Tablet 3 09/15/19 24 Active Warfarin Sodium 2 MG Oral Tablet (Jantoven)Indicat ions:Paroxysmal atrial fibrillation (HCC),[facility] current use of anticoagulant therapy,History of pulmonary embolus (PE) TAKE 1/2 TO 1 TABLET by mouth EVERY DAY as directed by antocoagulation clinic 90 Tablet 3 11/02/19 24 Active metFORMIN HCl ER 500 MG Oral Tablet Extended Release 24 Hour (Glucophage XR)Indications:Ty pe 2 diabetes mellitus with hemoglobin A1c goal of less than 7.0% ([facility]),Adult body mass index 50.0-59.9 ([facility]),Hyperinsuli nemia TAKE ONE TABLET BY MOUTH TWICE DAILY with morning evening meals 180 Tablet 1 02/03/20 24 Active Fluorouracil 5 % External Cream (Efudex)Indicatio ns:Actinic keratosis Apply to scaly areas on scalp twice daily for 3 weeks 40 g 02/16/20 24 Active Doxycycline Hyclate 100 MG Oral CapsuleIndication s:Moderate persistent asthma without complication,Sarc oidosis of lung ([facility]) TAKE ONE CAPSULE BY MOUTH TWICE DAILY-- rescue kit--call and dina appt when you start med 20 Capsule 02/17/20 24 Active Triamcinolone Acetonide 55 MCG/ACT Nasal Aerosol (Nasacort Allergy 24HR)Indications: Chronic nonallergic rhinitis Administer 2 Sprays into each nostril in the morning. St 02/17/2024. 02/17/20 24 Active predniSONE 10 MG Oral Tablet (Deltasone)Indica tions:Chronic left-sided low back pain with left-sided sciatica Take 5 tabs for 2 days, 4 tabs for 2 days, 3 tabs for 2 days, 2 tabs for 2 days 1 tab for 2 days 30 Tablet 02/17/20 24 Active Ozempic (0.25 or 0.5 MG/DOSE) 2 MG/3ML Solution Pen-injector (Semaglutide(0.25 or 0.5MG/DOS))Indica tions:Type 2 diabetes mellitus with hemoglobin A1c goal of less than 7.0% ([facility]),Body mass index (BMI) of 50.0 to 59.9 in adult ([facility]) 0.75 mg (1ml) weekly till done with current Rx and then will inc to 1 mg weekly on tue 3 mL 1 02/17/20 24 Active Vitamin D3 25 MCG (1000 UT) Oral CapsuleIndication s:Vitamin D deficiency 2000 units daily-increase 02/26/2024 1 Capsule 02/26/20 24 Active Rosuvastatin Calcium 10 MG Oral Tablet (Crestor)Indicati ons:Dyslipidemia, goal to be determined TAKE ONE TABLET BY MOUTH EVERY MORNING 90 Tablet 3 05/07/20 24 Active documented as of this encounter (statuses as of 07/27/2024) Active Problems Problem Noted Date Diagnosed Date Degeneration of intervertebr al disc of lumbar region with discogenic back pain and lower extremity pain 04/09/2024 Paroxysmal SVT (supraventricular tachycardia) Body mass index (BMI) of 50.0 to 59.9 in adult 1 Overview: Per Obesity protocol - Per Obesity protocol - 11/05/2010--BMI: 53.36 kg/m Dual ICD (implantable cardioverter-defibrillator ) in place 12/10/2019 Overview (12/10/2019): 12/06/19-for CHB with h/o sarcoidosis History of maternal pulmonary embolus 09/21/2019 Overview (09/21/2019): x2 Pulmonary nodules 09/21/2019 Type 2 diabetes mellitus wit h hemoglobin A1c goal of less than 7.0% 11/13/2018 Overview (08/11/2020): a1c 6.5 in 11/21 --has been on metformin many yrs-08/24-try ozempic Hemochromatosis associated with mutation in HFE gene 02/02/2018 Overview (02/20/2018): 01/21-+Homozygous C 282T mutation on My code scr-- Fe 02/21-407/60%-refer Biallelic mutation of HFE gene 01/26/2018 Overview (01/26/2018): 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 Increased risk for Hereditary Hemochromatosis. Venous stasis of lower extremity 11/15/2017 History of nonmelanoma skin cancer 07/15/2017 Overview (07/15/2017): SCC on the central chest 01/18, SCC in situ left gonzales, BCC right cheek 04/14, SCC right posterior leg. Status post left hip replacement 05/12/2017 H/O fracture of humerus 04/27/2016 Overview (04/27/2016): 10/19>see notes-sling>MRI>Slightly depressed, nondisplaced fracture with bone bruise anterior humeral tuberosity.--saw ortho, had PT Asthma, moderate persistent 08/30/2012 Overview (02/19/2015): fb pulm--Dulera,singulair, combivent /duoneb prn Vitamin D deficiency 03/21/2012 displaced lt fibular fx 11/1401/05/2011 Overview (05/07/2011): 12/16/10 Dr Macario/[facility] - open reduction internal fixation displaced lt fibula fx 11/16/10--xr-1--minimally displaced spiral type fracture involving the distal aspect of the shaft of the fibula. -incidental-mild relatively generalized degenerative change, calcaneal spurring, and dystrophic calcification within the Achilles' tendon--casted x 4wks Primary localized osteoarthrosis, lower leg 07/2010 Overview (11/05/2010): Left knee--xr 09/14--[facility] Er-- mod deg chg patellfem jts, and lat cmt. Sarcoidosis of lung 07/14/2010 Overview (08/30/2012): 03/20/12: followed by Dr. Cuadra 07/18--CT chest--Stable changes in the mediastinum and central/upper lungs consistent with sarcoidosis. 01/14--Aditya hurd-- PFT nml(had del rosario on advair --is on dulera prn) 12/14--Ct Chest= Partially calcified mediastinal and bilateral hilar adenopathy. Multiple scattered small subcentimeter pulmonary nodules bilaterally, some of which are calcified ----has known sarcoid (bx done by Dr. Landa ), h/o PE x 2 --will refer pulm --dina pft 12/04--cxr [facility]-showed nodule-- 07/17--cxr--mild bilateral hilar/mediastinal lymphadenopathy -stable /mild imp since 2002. Hyperinsulinemia 03/16/2010 Overview (09/20/2012): 10/15-[birth year], a1c 5.4, -(-metformin -diarhea On 850mg Not 500mg -noted 05/16) Encounter for screening mammogram for breast can cer 06/16/2009 Overview (11/24/2018): Ekj12--mzu.--04/15-neg;;;;neg --06/18;;06/19;;08/18;;05/21;;05/22;11/22 Metabolic syndrome 06/16/2009 Overview (06/16/2009): High Tg, low HDL, fbs 107, abd girth >35" Status post total right knee replacement 009 Dyslipidemia-elev trigs/low HDL 12/20/2008 History of adenomatous polyp of colon 08/19/2006 Overview (06/13/2015): 03/25/15 Cecal Polyps/Dr Hartley: Benign colonic mucosa_rpt 5 yrs 10/15--3 [id number] 3 YRS 08/25/2009---xle polyps-3 TA and 3 hyperplastic polyps -,Mild to moderate diverticulosis sigmoid colon& descending colon.-rpt 2 yrs.Kenan Colonoscopy 08/16/06--adenomatous and hyperplastic polyps--repeat 3 years HTN, goal below 140/80 06/30/2001 Overview (12/19/2019): 12/06/19-ECHO--mild clvh,mod MAC, mild MS,nml RVSP Paroxysmal atrial fibrillation 06/30/2001 Overview (05/12/2017): 02/18--had EKG DrEaton-sotalol inc 160 to 240mg bid, stress test neg. Sotalol since 2000 , had CV DrPatel for RVR 2003. 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 0 to 49.9 in adult 02/12/2019 03/20/2020 Overview: Per Obesity protocol - 11/05/2010--BMI: 53.36 kg/m Encounter for examination fo r normal comparison and control in clinical research program 01/13/2018 01/19/2018 Overview (09/22/2020): Diagnosis changed due to Research Module. Go to Snapshot for study details. Mixed dyslipidemia 11/15/2017 8 Cellulitis of left lower extremity 11/04/2016 05/12/2017 Screening for osteoporosis 04/27/2016 1 07/10/2017 Overview (11/10/2016): Dexa -04/21-LR--rpt 9 yrs Acute appendicitis 01/25/2013 3 Adult body mass index 50.0-59.9 11/05/2010 02/16/2019 Overview (11/05/2010): 11/05/2010--BMI: 53.36 kg/m DIARRHEA--sp cholecystectomy 200411/05/2010 05/09/2018 ADVANCE DIRECTIVE INFORMATION 08/21/2009 02/19/2015 Overview (06/25/2009): Yes, Patient instructed to provide copy of advance directive for provider to review and to be scanned into Electronic Medical Record Screening for malignant neoplasm of cervix 06/16/2009 05/09/2018 Overview (11/10/2016): 04/15-pap vag smear neg, + Louann Vag smear 2003 --neg. sp partial hyst 1976. Routine medical exam 06/16/2009 016 Menopause 06/16/2009 05/09/2018 Personal history of malignan t neoplasm of skin 02/25/2009 07/15/2017 Overview (04/23/2009): History of Squamous Cell Carcinoma right lower calf/173.9 History Basal Cell Carcinoma R Lower Eyelid/173.3 Bleeding lesion lower r lower eyelid margin 02/07/2009 02/25/2009 Morbid obesity, BMI not known 04/14/2008 09/02/2009 Overview (09/02/2009): Per Obesity Taxonomy Anticoagulation management encounter 05/16/2003 04/05/2007 Morbid obesity, BMI not known 06/30/2001 04/14/2008 documented as of this encounter (statuses as of 07/27/2024) Immunizations Name Administration Dates Next Due COVID-19 mRNA, LNP-s, No Pre serve, 2-Dose Series (JolieBox) 03/11/2021,08/12/2020,07/15/2020 COVID-19, LNP-s, No Preserve , Ramana-sucrose, Ages 12+ (Pfizer) 10/23/2021 COVID-19, MRNA-LNP, 24-25, P F, 50 MCG/0.5ML, IM, 12 YRS & ABOVE (Moderna - Spikevax) 02/20/2024 COVID-19, MRNA-LNP, PF, 30 M CG/0.3 mL, 12 YRS AND ABOVE, IM (PFIZER-Comirnaty) 03/31/2023 Covid-19, Mrna, Lnp-s, Pf, B ivalent, 30 Mcg, IM, 12 yrs and above (Pfizer) 03/30/2022 Pneumococcal Conjugate Vacc, 13 Valent (Prevnar) 04/08/2015 Pneumococcal Conjugate Vacci ne, 7 Valent 06/23/2000,03/02/1995 Pneumococcal Polysaccharide PPV23 (Pneumovax) 04/27/2016,06/23/2000,03/02/1995 RSV Vac., Bivalent, Perfusio n F, Pf,0.5 Ml (Abrysvo) 05/09/2023 Season Influenza, Quad, PF, Adjuvanted, 65+ Yrs, IM (FLUAD) 02/12/2020 Seasonal Influenza Vac., MDV , IM, 0.5 mL (Fluzone) 02/19/2015,03/05/2014,04/27/2013,03/21,05/07/2011,03/16/2010,06/16/2009 ,04/15/2008,05/26/2007,04/08/2006 Seasonal Influenza Virus Vac cine, Unspecified Formulation 03/17/2018,02/18/2017,04/02/2016,02/19,03/05/2014,04/27/2013,03/21/2012 ,05/07/2011,03/16/2010,06/16/2009,04/06,05/26/2007,04/08/2006, 5,05/19/2004,03/20/2003,04/11/2002,07/2000,06/23/2000 Seasonal Influenza, High Dos e, Trivalent, PF, IM (Fluzone HD) 02/17/2024 Seasonal Influenza, PF, 6 M & above, IM , (FluLaval or Fluzone) 02/11/2021,03/17/2018 Seasonal Influenza, Quadriva lent Hd (Fluzone Hd) 02/14/2023,02/19/2022 Seasonal Influenza, Quadriva lent, No Preserve, IM 02/18/2017,04/02/2016 Seasonal Influenza, Trivalen t, Adjuvanted, 65+ YRS, PF, (Fluad) 03/09/2019 TD, Preservative Free 11/15/2017,07/30/2017,02/05 TDAP (age 10 and older)(Boostrix) 12/18/2007 TDAP, Age 7 and older, IM (Adacel) 12/18/2007 Varicella Zoster Vaccine (Adult) 08/02/2011 Zoster Vaccine Recombinant (Shingrix) 10/08/2021 ,07/31/2021 documented as of this encounter Social History Tobacco Use Types Packs/Day Years Used Date Smoking Tobacco: Never Smokeless Tobacco: Never Alcohol Use Standard Drinks/Week Comments Yes 0 (1 standard drink = 0.6 oz pur e alcohol) Rare, special occasions AUDIT-C Answer Date Recorded Frequency of Alcohol Consumption Monthly or less 07/28/2018 Average Number of Drinks Not on file 019 Frequency of Binge Drinking Not on file 07/08 PHQ-2 Answer Date Recorded PHQ Adult Total Score 0 02/24/2024 Hunger Vital Sign Answer Date Recorded Within the past 12 months, y ou worried that your food would run out before you got the money to buy more. Never true 06/04/20 22 Within the past 12 months, t he food you bought just didn't last and you didn't have money to get more. 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 Not on file Not on f ile Not on file documented as of this encounter Progress Notes * Swetha Weems, [facility] - 07/27/2024 10:47 AM EST Medication Therapy Disease Management - Anticoagulation Patient: Georgina Toscano | : 1950 Subjective Patient-Reported Symptoms: Patient Findings Negatives: Signs/symptoms of thrombosis, Signs/symptoms of bleeding, Change in health, Change in alcohol use, Change in activity, Upcoming invasive procedure, Missed doses, Extra doses, Change in medications, Change in diet/appetite, Bruising Objective Current Warfarin Dose As of 07/27/2024 Warfarin maintenance plan: 2 mg (2 mg x 1) every Tue, Kristin, Sat; 1 mg (2 mg x 0.5) all other days INR Result As of 07/27/2024 INR goal: 2.0-3.0 INR used for dosin.4 (07/27/2024) Assessment & Plan Warfarin Plan As of 07/27/2024 Full warfarin instructions: 2 mg every Tue, Kristin, Sat; 1 mg all other days No change documented: Swetha Weems RPh Next INR check: 08/31/2024 Repeat PT/INR in 5 week(s) Weekly dose: not changed Additional Dosing Information: Description Patient is having a trigger finger surgery (date not yet determined, will be in the fall). Surgeon requires INR to be 1.5 or less for procedure. Patient has a desire to avoid Lovenox bridge due to pain of injection and cost. ACC could feasibly target an INR of 1.5 and then boost day of procedure. I spent a total of 10-19 minutes (exact time 10 mins) on the date of service in preparation, delivery, and documentation of the care provided to Georgina Toscano excluding any time spent in the performance of separately billed services or time spent by another provider/QHP. Swetha Weems RP Clinical Pharmacist 07/27/2024, 10:47 AM documented in this encounter Plan of Treatment Upcoming Encounters Date Type Department Care Team (Late st Contact Info) Description 08/24/2024 8:00 AM EDT Office Visit General Internal Medicine [facility] [address] [facility] [place] [address] Teresa Collins MD [address] [facility] [place] [address] 08/31/2024 11:00 AM EDT Anticoagulation Pharmacy, [address] [place] [address] Pharmacist2, [facility] [address] [place] [address] 09/10/2024 10:00 AM EDT Laboratory Laboratory, [place] [address] [facility] [facility] [place] [phone] Angel Jones [address] [place] [address] [place] [address] 09/13/2024 2:00 PM EDT Office Visit Hematology/Oncology, [facility] [address] [facility] [place] [address] Joelle Rosario CRNP [address] [place] [address] 09/13/2024 2:30 PM EDT Hem/Onc Treatment Hematology/Oncology Treatment, [facility] [address] [facility] [address] [facility], Chair11 Hem Onc [address] [place] [address] [place] [address] Scheduled Procedures Name Priority Associated Diagnoses Date/Ti me COLONOSCOPY FLEXIBLE PROXIMAL DIAGNOSTIC Recall History of colon polyps Health Maintenance Due Date Last Done Comments Cologuard 09/16/1995 Sigmoidoscopy 09/16/1995 Fecal Occult Blood Test 04/21/2011 04/21/2010 COVID-19 Vaccine ( season) 2024 02/20/2024, 03/31/2023, 03/30/2022, Additional history exists Albumin/Creatinine Ratio 08/07/2024 024, 02/08/2023, 05/14/2022, Additional history exists B-12 08/07/2024 08/08/2023, 1202/2022, 02/10/2021, Additional history exists Diabetic Foot Exam 08/14/2024 08/15/2023, 1 07/03/2021, 11/12/2020 HbA1c 08/19/2024 02/20/2024, 09/2023, 02/08/2023, Additional history exists Diabetic Eye Exam 10/20/2024 10/21/2023, , 12/08/2022, Additional history exists Transferrin Saturation Hereditary Hemochromatosis (HFE) Annual,All Ages 11/17/2024 11/18/2023, 02/08/2023, 07/02/2022, Additional history exists GFR 02/19/2025 02/20/2024, 0 10/2022, 07/02/2022, Additional history exists Adult Wellness Visit 02/23/2025 02/24/2024, 11/05/2022, 08/28/2021 Depression Screening 02/23/2025 02/24/2024, 02/17/20 24 Mammogram 04/30/2025 04/30/2024, 04/06, 04/21/2022, Additional history exists DXA Scan 05/03/2025 05/03/2016 Fasting Serum Ferritin Hereditary Hemochromatosis (HFE) Annual,All Ages 06/11/2025 06/11/2024, 02/20/2024, 11/18/2023, Additional history exists Colonoscopy 06/24/2026 06/24/2021, 06/06, 06/24/2021, Additional history exists Colorectal Cancer Screening 06/24/2026 DTap/Tdap Vaccines (5 - Td or Tdap) 11/16/2027 11/15/2017, 07/30/2017, 12/18/2007, Additional history exists Lipid Panel 02/19/2029 02/20/2024, 10/2022, 07/02/2022, Additional history exists Pneumococcal Vaccine: 50+ Years Completed 04/27/2016, 04/08/2015, 06/23/2000, Additional history exists RETIRED - COLONOSCOPY-EVERY 5 YRS AGES 18-100 Discontinued 06/24/2021, 06/24/2021, 06/24/2021, Additional history exists Zoster Vaccines Completed 10/08/2021, 07/08, 08/02/2011 Influenza Vaccine (FLU shot) Completed , 02/14/2023, 02/19/2022, Additional history exists HPV (Gardasil) Vaccine Aged Out No lo nger eligible based on patient's age to complete this topic Hepatitis B Vaccine Aged Out No longe r eligible based on patient's age to complete this topic MENINGOCOCCAL (MENACTRA/MENVEO) Aged Out No longer eligible based on patient's age to complete this topic Meningitis B Vaccine (Bexsero/Trumemba) Aged Out No longer eligible based on patient's age to complete this topic documented as of this encounter Medical Devices Not on filedocumented as of this encounter Procedures Procedure Name Priority Date/Time Associated Diagnosis Comments INR FINGERSTICK, POINT OF CARE STAT 07/27/2024 11:06 AM EST Paroxysmal atrial fibrillation (HCC) History of pulmonary embolus (PE) Anticoagulation management encounter documented in this encounter Results * INR FINGERSTICK, POINT OF CARE (07/27/2024 11:06 AM EST) Fingerstick INR 2.4 INR 11:08 AM EST [facility] 45-01 Blood 07/27/2024 11:0 6 AM EST 07/27/2024 11:08 AM EST Narrative [facility] 45-01 - 07/27/2024 11:08 AM EST Therapeutic ranges for non-operative patients: Prophylaxsis/treatment of DVT: (Range:2.0-3.0) Treatment of pulmonary embolism:(Range:2.0-3.0) Prevention of systemic embolism from: -tissue heart valves -acute myocardial infarction -valvular heart disease -atrial fibrillation (Range: 2.0-3.0) Mechanical prosthetic valves: (Range: 2.5-3.5) Swetha Weems [facility] POINT OF CARE TEST DOCKED DEVICE UNSOLICITED RESULTS Final Result [facility] [place] 45- [address] [facility] [place] [address] documented in this encounter Visit Diagnoses Diagnosis Anticoagulation management encounter- Primary Encounter for therapeutic drug monitoring Paroxysmal atrial fibrillation (HCC) Atrial fibrillation History of pulmonary embolus (PE) Personal history of pulmonary embolism documented in this encounter Care Teams Manager Language Relationship Specialty Start Date End Date Teresa Collins MD [address] [facility] [place] [address] PCP - General Internal Medicine 10/22/16 documented as of this encounter
--- OUTSIDE RECORDS SUMMARY | 2024-08-04 14:48 | External Medical Summary | Summary of Care ---
Author Name Unknown Organization [facility] Address [address] [place] [address] Phone [phone] Care Team Providers Care Metal And Plastic Heater Name Role Phone Teresa Collins MD Primary Care Provider [phone] Encounter Details Date Type Department Care Team (Late st Contact Info) Description 08/04/2024 Refill General Internal Medicine [facility] [place] [address] [facility] [place] [address] Teresa Collins MD [address] [place] [address] Allergies Active Allergy Reactions Criticality Noted Date Comments Loratadine-Pseudoephedrin e Er Other (Please comment) Medium 03/16/2010 Heart fluttering Erythromycin 08/25/2001 gi upset Loratadine 12/18/2020 Other reaction(s): HEART RACE Penicillins 06/30/2001 rash Pseudoephedrine 12/18/2020 Other reaction(s): INTOLERANT Sulfa Antibiotics 10/30/2016 Other reaction(s): STOMACH ACHES Sulfamethoxazole W/Trimethoprim (Co-Trimoxazole) 06/30/2001 H/A documented as of this encounter (statuses as of 08/04/2024) Medications ARTIFICIAL TEARS OP SOLN Instill into [...] 06/28/2022 as dulera is NF. 60 Each 12 06/28/19 23 Active Additional Information Patient taking [...] MG Oral Tablet (Jantoven)Indicat ions:Paroxysmal atrial fibrillation (HCC),custodial current use of anticoagulant therapy,History of pulmonary embolus (PE) TAKE 1/2 TO 1 TABLET by mouth EVERY DAY as directed by antocoagulation clinic 90 Tablet 3 11/02/19 24 Active metFORMIN HCl ER 500 MG Oral Tablet Extended Release 24 Hour (Glucophage XR)Indications:Ty pe 2 diabetes mellitus with hemoglobin A1c goal of less than 7.0% ([facility]),Adult body mass index 50.0-59.9 ([facility]),Hyperinsuli nemia TAKE ONE TABLET BY MOUTH TWICE DAILY with morning evening meals 180 Tablet 1 02/03/20 24 Active Fluorouracil 5 % External Cream (Efudex)Indicatio ns:Actinic keratosis Apply to scaly areas on scalp twice daily for 3 weeks 40 g 02/16/20 24 Active Doxycycline Hyclate 100 MG Oral CapsuleIndication s:Moderate persistent asthma without complication,Sarc oidosis of lung ([facility]) TAKE ONE CAPSULE BY MOUTH TWICE [...] hemoglobin A1c goal of less than 7.0% ([facility]),Body mass index (BMI) of 50.0 to 59.9 in adult ([facility]) 0.75 mg (1ml) weekly till done [...] MORNING 90 Tablet 3 05/07/20 24 Active Oseltamivir Phosphate 75 MG Oral Capsule (Tamiflu) Take 1 Capsule by mouth in the morning and 1 Capsule before bedtime. Do all this for 5 days. For 5 days.. 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 Increased risk for Hereditary Hemochromatosis. Venous stasis [...] fibular fx 11/1401/05/2011 Overview (05/07/2011): 12/16/10 Dr Macario/[facility] - open reduction internal fixation displaced lt fibula fx 11/16/10--xr-1--minimally displaced spiral type fracture involving the distal aspect of the shaft of the fibula. -incidental-mild relatively generalized degenerative change, calcaneal spurring, and dystrophic calcification within the Achilles' tendon--casted x 4wks Primary localized osteoarthrosis, lower leg 07/2010 Overview (11/05/2010): Left knee--xr 09/14--[facility] Er-- mod deg chg patellfem jts, and [...] 2 --will refer pulm --dina pft 12/04--cxr [facility]-showed nodule-- 07/17--cxr--mild bilateral hilar/mediastinal lymphadenopathy -stable /mild imp since 2002. Hyperinsulinemia 03/16/2010 Overview (09/20/2012): 10/15-44, a1c 5.4, -(-metformin -diarhea On 850mg Not 500mg -noted 05/16) Encounter for screening mammogram for breast can cer 06/16/2009 Overview (11/24/2018): Qvq73--tks.--04/15-neg;;;;neg --06/18;;06/19;;08/18;;05/21;;05/22;11/22 Metabolic syndrome 06/16/2009 Overview (06/16/2009): High Tg, low HDL, fbs 107, abd girth >35" Status post total right knee replacement 009 Dyslipidemia-elev trigs/low HDL 12/20/2008 History of adenomatous polyp of colon 08/19/2006 Overview (06/13/2015): 03/25/15 Cecal Polyps/Dr Hartley: Benign colonic mucosa_rpt 5 yrs 10/15--3 [id number] 3 YRS 08/25/2009---xle polyps-3 TA and 3 [...] after 2nd pe), afib 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 Do all this for 5 days. For 5 days..Authorizing Provider: DEENA CAPELLAN * Telephone Encounter - Louise Berumen LPN - 08/04/2024 10:45 AM EST tested positive . Pt started having symptoms last night and would like to have a script sent for tamiflu. Pt reports that she does not want to wait as she has a history of heart and lung issues Order pend if you agree. * Telephone Encounter - Mary Cárdenas OSA - 08/04/2024 8:06 AM EST Erin has flu sx, had flu as well Asking for tamiflu Sore throat, deep cough, del rosario, shoulders ach legs ach weak and tired documented in this encounter Plan of Treatment Upcoming Encounters Date Type Department Care Team (Late st Contact Info) Description 08/24/2024 8:00 AM EDT Office Visit General Internal Medicine [facility] [address] [facility] [place] [address] Teresa Collins MD [address] [facility] [place] [address] 08/31/2024 11:00 AM EDT [facility] [address] [facility] [place] [address] Pharmacist2, [facility] [address] [place] [address] 09/10/2024 10:00 AM EDT Laboratory Laboratory, [place] [address] Sue [place] [phone] Angel [place] [address] [place] [address] 09/13/2024 2:00 PM EDT Office Visit Hematology/Oncology, [address] [place] [address] Joelle Rosario CRNP [address] [place] [address] 09/13/2024 2:30 PM EDT Hem/Onc Treatment Hematology/Oncology Treatment, [facility] [address] [place] [address] Gl, [address]11 Hem Onc [address] [place] [address] Scheduled Procedures Name Priority Associated Diagnoses Date/Ti me COLONOSCOPY FLEXIBLE PROXIMAL DIAGNOSTIC Recall History of colon polyps Health Maintenance Due Date Last Done Comments Cologuard 09/16/1995 Sigmoidoscopy 09/16/1995 Fecal Occult Blood Test 04/21/2011 04/21/2010 COVID-19 Vaccine ( season) 2024 02/20/2024, 03/31/2023, 03/30/2022, Additional history exists Albumin/Creatinine Ratio 08/07/2024 024, 02/08/2023, 05/14/2022, Additional history exists B-12 08/07/2024 08/08/2023, 02/2022, 02/10/2021, Additional history exists Diabetic Foot Exam 08/14/2024 08/15/2023, 1 07/03/2021, 11/12/2020 HbA1c 08/19/2024 02/20/2024, 030 09/2023, 02/08/2023, Additional history exists Transferrin Saturation Hereditary Hemochromatosis (HFE) Annual,All Ages 11/17/2024 11/18/2023, 02/08/2023, 07/02/2022, Additional history exists GFR 02/19/2025 02/20/2024, 090 10/2022, 07/02/2022, Additional history exists Adult Wellness Visit 02/23/2025 02/24/2024, 11/05/2022, 08/28/2021 Depression Screening 02/23/2025 02/24/2024, 02/17/20 24 Mammogram 04/30/2025 04/30/2024, 04/06, 04/21/2022, Additional history exists DXA Scan 05/03/2025 05/03/2016 Fasting Serum Ferritin Hereditary Hemochromatosis (HFE) Annual,All Ages 06/11/2025 06/11/2024, 02/20/2024, 11/18/2023, Additional history exists Diabetic Eye Exam 06/12/2025 06/12/2024, , 10/21/2023, Additional history exists Colonoscopy 06/24/2026 06/24/2021, 06/06, [...] Not on filedocumented as of this encounter Care Teams Metal And Plastic Heater Relationship Specialty Start Date End Date Teresa Collins MD [address] [place] [address] PCP - General Internal Medicine 10/22/16 documented as of this encounter
--- OUTSIDE RECORDS SUMMARY | 2024-08-04 14:48 | External Medical Summary | Summary of Care ---
Author Name Unknown Organization [facility] Address [address] [place] [address] Phone [phone] Care Team Providers Care Slitting And Shipping Supervisor Name Role Phone Teresa Collins MD Primary Care Provider [phone] Reason for Visit * Reason Onset Date Comments Advice 04/18/2024 Encounter Details Date Type Department Care Team (Late st Contact Info) Description 04/18/2024 Telephone General Internal Medicine [facility] [place] [address] [facility] [place] [phone] Teresa Collins MD 200 [facility] [place] [address] Advice Allergies Active Allergy Reactions Criticality Noted Date Comments Loratadine-Pseudoephedrin e Er Other (Please comment) Medium 03/16/2010 Heart fluttering Erythromycin 08/25/2001 gi upset Loratadine 12/18/2020 Other reaction(s): HEART RACE Penicillins 06/30/2001 rash Pseudoephedrine 12/18/2020 Other reaction(s): INTOLERANT Sulfa Antibiotics 10/30/2016 Other reaction(s): STOMACH ACHES Sulfamethoxazole W/Trimethoprim (Co-Trimoxazole) 06/30/2001 H/A documented as of this encounter (statuses as of 07/19/2024) Medications ARTIFICIAL TEARS OP SOLN Instill into both eyes as needed (dry eyes). 1 bottle 5 006 Active sotalol (BETAPACE) 160 MG TabletIndication s:Paroxysmal atrial fibrillation (HCC) One and one half tablets twice daily since 02/18 DrEaton 015 Active Fluocinonide 0.05 % ointmentIndicati ons:Dermatitis Apply to rash on the leg twice daily as needed for itching or flares. 30 g 1 018 Active metoprolol succinate XL (TOPROL XL) 25 MG TB24 Take 1 Tablet by mouth in the morning. 020 Active metoprolol tartrate (LOPRESSOR) 50 MG Tablet Take 1 Tablet by mouth daily as needed (A-fib symptoms). Active Ventolin HFA 108 (90 Base) MCG/ACT Inhalation Aerosol SolutionIndicati ons:Asthma, moderate persistent,Sarco idosis of lung (HCC) TAKE 2 PUFFS BY MOUTH EVERY 4 HOURS NEEDED ,SHAKE WELL. 18 g 1 021 Active Macular Health Formula Oral CapsuleIndicatio ns:Bilateral nonexudative age-related macular degeneration, unspecified stage Take by mouth 2 times a day. 2 capsules 2 times a day Active Urea 10 % External CreamIndications :Dry skin dermatitis Apply to dry areas on feet daily -st 05/03/2022 022 Active Fluticasone-Salm eterol 500-50 MCG/ACT Inhalation Aerosol Powder Breath Activated ([employer])Indication s:Sarcoidosis of lung (HCC),Moderate persistent asthma without complication,His tory of pulmonary embolus (PE) Inhale 1 Puff by mouth in the morning and 1 Puff before bedtime. --st 06/28/2022 as dulera is NF. 60 Each 12 023 Active Additional Information Patient taking differently:1 Puff InhalationPRN, wheezing, Pt taking as needed, Reported on 02/14/2023 Fexofenadine HCl 180 MG Oral Tablet (Rosa Allergy) Take 1 Tablet by mouth in the morning. 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,History of pulmonary embolus (PE) TAKE 1/2 TO 1 TABLET by mouth EVERY DAY as directed by antocoagulation clinic 90 Tablet 3 Active metFORMIN HCl ER 500 MG Oral Tablet Extended Release 24 Hour (Glucophage XR)Indications:T ype 2 diabetes mellitus with hemoglobin A1c goal of less than 7.0% ([facility]),Adult body mass index 50.0-59.9 ([facility]),Hyperinsul inemia TAKE ONE TABLET BY MOUTH TWICE DAILY with morning evening meals 180 Tablet 1 Active Fluorouracil 5 % External Cream (Efudex)Indicati ons:Actinic keratosis Apply to scaly areas on scalp twice daily for 3 weeks 40 g Active Doxycycline Hyclate 100 MG Oral CapsuleIndicatio ns:Moderate persistent asthma without complication,Kj coidosis of lung ([facility]) TAKE ONE CAPSULE BY MOUTH TWICE DAILY-- rescue kit--call and dina appt when you start med 20 Capsule Active Triamcinolone Acetonide 55 MCG/ACT Nasal Aerosol (Nasacort Allergy 24HR)Indications :Chronic nonallergic rhinitis Administer 2 Sprays into each nostril in the morning. St 02/17/2024. Active predniSONE 10 MG Oral Tablet (Deltasone)Indic ations:Chronic left-sided low back pain with left-sided sciatica Take 5 tabs for 2 days, 4 tabs for 2 days, 3 tabs for 2 days, 2 tabs for 2 days 1 tab for 2 days 30 Tablet Active Ozempic (0.25 or 0.5 MG/DOSE) 2 MG/3ML Solution Pen-injector (Semaglutide(0.2 5 or 0.5MG/DOS))Indic ations:Type 2 diabetes mellitus with hemoglobin A1c goal of less than 7.0% ([facility]),Body mass index (BMI) of 50.0 to 59.9 in adult ([facility]) 0.75 mg (1ml) weekly till done with current Rx and then will inc to 1 mg weekly on tue 3 mL 1 Active Vitamin D3 25 MCG (1000 UT) Oral CapsuleIndicatio ns:Vitamin D deficiency 2000 units daily-increase 02/26/2024 1 Capsule Active Rosuvastatin Calcium 10 MG Oral Tablet (Crestor)Indicat ions:Dyslipidemi a, goal to be determined TAKE ONE TABLET BY MOUTH EVERY MORNING 90 Tablet 1 024 2023 Discontinued documented as of this encounter (statuses as of 07/19/2024) Active Problems Problem Noted Date Diagnosed Date [...] 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 Increased risk for Hereditary Hemochromatosis. Venous stasis [...] fibular fx 11/1401/05/2011 Overview (05/07/2011): 12/16/10 Dr Macario/[facility] - open reduction internal fixation displaced lt fibula fx 11/16/10--xr-1--minimally displaced spiral type fracture involving the distal aspect of the shaft of the fibula. -incidental-mild relatively generalized degenerative change, calcaneal spurring, and dystrophic calcification within the Achilles' tendon--casted x 4wks Primary localized osteoarthrosis, lower leg 07/2010 Overview (11/05/2010): Left knee--xr 09/14--[facility] Er-- mod deg chg patellfem jts, and [...] 2 --will refer pulm --dina pft 12/04--cxr [facility]-showed nodule-- 07/17--cxr--mild bilateral hilar/mediastinal lymphadenopathy -stable /mild imp since 2002. Hyperinsulinemia 03/16/2010 Overview (09/20/2012): 10/15-44, a1c 5.4, -(-metformin -diarhea On 850mg Not 500mg -noted 05/16) Encounter for screening mammogram for breast can cer 06/16/2009 Overview (11/24/2018): Vde74--quw.--04/15-neg;;;;neg --06/18;;06/19;;08/18;;05/21;;05/22;11/22 Metabolic syndrome 06/16/2009 Overview (06/16/2009): High Tg, low HDL, fbs 107, abd girth >35" Status post total right knee replacement 009 Dyslipidemia-elev trigs/low HDL 12/20/2008 History of adenomatous polyp of colon 08/19/2006 Overview (06/13/2015): 03/25/15 Cecal Polyps/Dr Hartley: Benign colonic mucosa_rpt 5 yrs 10/15--3 [id number] 3 YRS 08/25/2009---xle polyps-3 TA and 3 [...] after 2nd pe), 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 documented as of this encounter (statuses as of 07/19/2024) Resolved Problems Problem Noted Date Diagnosed Date [...] as of this encounter (statuses as of 07/19/2024) Immunizations Name Administration Dates Next Due COVID-19 mRNA, LNP-s, No Pre serve, 2-Dose Series ([employer]) 03/11/2021,08/12/2020,07/15/2020 COVID-19, LNP-s, No Preserve , Ramana-sucrose, Ages 12+ (Pfizer) 10/23/2021 COVID-19, MRNA-LNP, 24-25, P F, 50 MCG/0.5ML, IM, 12 YRS & ABOVE (Moderna - Spikevax) 02/20/2024 COVID-19, MRNA-LNP, PF, 30 M CG/0.3 mL, 12 YRS AND ABOVE, IM (PFIZER-Comirnaty) 03/31/2023 Covid-19, Mrna, Lnp-s, Pf, B ivalent, 30 Mcg, IM, 12 yrs and above ([employer]) 03/30/2022 Pneumococcal Conjugate Vacc, 13 Valent (Prevnar) [...] Start Date Job End Date 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 He needs 02/16 OV note with patient WT documented and 04/09 DME walker order to reimburse patient from medicare. Faxed to [facility], received confirmation that the transmission was successful. * Telephone Encounter - Cleopatra Grubbs OSA - 04/24/2024 10:01 AM EST Patient calling in to check on the status of previous message. Patient Called within forms 5-7 business day turnaround timeframe. Reminded patient of 5-7 businessday policy for forms requests. * Telephone Encounter - Mary Cortez OSA - 04/21/2024 9:52 AM EST Georgina called back to check status on weight info for walker with a seat and script for it, including clinical notes for when she was last seen. * Telephone Encounter - Med Feng OSA - 04/19/2024 10:24 AM EST Dorcas Georgina L called to advise that she will need to fax OV notes showing weight. Please Advise * Telephone Encounter - Parris Cristina OSA - 04/18/2024 3:15 PM EST Pt calling in asking to have a prescription sent to [facility] [phone]. This is going to be for the walker with a seat they ended up paying out of pocket and they are trying to get a reimbursement through the insurance company as medicare does cover it. Please advise. documented in this encounter Plan of Treatment Upcoming Encounters Date Type Department Care Team (Late st Contact Info) Description 07/27/2024 11:00 AM EST Anticoagulation Pharmacy, [address] [place] [address] [address], [facility] [place] [address] [place] [address] 08/24/2024 8:00 AM EDT Office Visit General Internal Medicine [facility] [address] [place] [address] Teresa Collins MD 200 [facility] [place] [address] 09/10/2024 10:00 AM EDT [facility] [phone] [facility] [place] [address] 09/13/2024 2:00 PM EDT Office Visit Hematology/Oncology, [facility] [address] Joelle Rosario CR[facility] [address] [facility] [address] 09/13/2024 2:30 PM EDT Hem/Onc Treatment Hematology/Oncology Treatment, [facility] [address] [facility] [address] Ravindra, Chair11 Hem Onc [address] [place], [place] [address] [address] Scheduled Procedures Name Priority Associated Diagnoses Date/Ti me COLONOSCOPY FLEXIBLE PROXIMAL DIAGNOSTIC Recall History of colon polyps Health Maintenance Due Date Last Done Comments Cologuard 09/16/1995 Sigmoidoscopy 09/16/1995 Fecal Occult Blood Test 04/21/2011 04/21/2010 COVID-19 Vaccine ( season) 2024 02/20/2024, 03/31/2023, 03/30/2022, Additional history exists Albumin/Creatinine Ratio 08/07/20242 024, 02/08/2023, 05/14/2022, Additional history exists B-12 08/07/2024 08/08/2023, 1202/2022, 02/10/2021, Additional history exists Diabetic Foot Exam 08/14/2024 08/15/2023, 1 07/03/2021, 11/12/2020 HbA1c 08/19/2024 02/20/2024, 030 09/2023, 02/08/2023, Additional history exists Diabetic Eye Exam 10/20/2024 10/21/2023, , 12/08/2022, Additional history exists Transferrin Saturation Hereditary Hemochromatosis (HFE) Annual,All Ages 11/17/2024 11/18/2023, 02/08/2023, 07/02/2022, Additional history exists GFR 02/19/2025 02/20/2024, 10/2022, 07/02/2022, Additional history exists Adult Wellness [...] filedocumented as of this encounter Care Teams Slitting And Shipping Supervisor Relationship Specialty Start Date End Date Teresa Collins MD [address] [place] [address] PCP - General Internal Medicine 10/22/16 documented as of this encounter
--- NOTE | 2024-08-04 15:16 | Emergency Department Note ---
Impression & Plan Influenza A, Hypoxia ED Provider Note Name: PHILIP KRUEGER Age: 73 Sex: Female Arrives Via: Walk-In Informant: Patient, ED Provider: Cheko Chung MD Chief Complaint: Illness Impression: As per impressions above Medical Decision Making: Pleasant 73-year-old female arrives for evaluation of illness. Patient with 1 day of fevers, chills, body aches and now worsening shortness of breath. She has a history of sarcoidosis and previous issues with respiratory infections. Her has known influenza and thus when she started feeling worse this morning she did take Tamiflu. Examination with quite poor lung sounds and patient clearly fearless unwell. That said on arrival she is not significantly hypoxic and has no tachycardia or hypotension. She was given an hour-long nebulizer, IV Decadron and IV magnesium. Her breathing is vastly improved following this but her oxygen started trending down. Sats were in the upper 80s and thus plan for hospitalization. Hospitalist consulted. Unfortunately shortly thereafter patient developed worsening illness and was noted to be significantly hypotensive. At this point blood cultures lactic acid were obtained and 1 L normal saline bolus was given. She initially improved blood pressure but just prior to admission blood pressure dropped once again. A second liter normal saline was given. Patient was reevaluated multiple times through this. Hospitalist was managing patient at bedside as well during his hypotension. She was empirically given IV cefepime for broad-spectrum coverage now that she is hypotensive and concern for secondary bacterial infection. Triage/Nursing Notes reviewed by Me Repeat volume status exam at 18:30 sepsis exam completed by me. No further hypotension requiring pressors at this time Differential:Viral syndrome, otitis, pharyngitis, pneumonia, influenza, meningitis, urinary tract infection, sepsis, bacteremia, as well as other pathologies. Vital Signs: reviewed and remarkable for fever on arrival Interventions: DuoNeb 1 hour, Decadron 10 mg IV, magnesium 1 g IV, normal saline bolus 1 L IV x 2, cefepime IV, doxycycline IV Labs:ED labs Reviewed by me and remarkable for elevated lactic acid Imagin view chest x-ray as per my interpretation bilateral perihilar infiltrates with viral process no lobar infiltrate appreciated compared to previous chest EKG:As per my interpretation. Indication hypotension. Ventricular paced 114 bpm and a QTc of 545. There is no ectopy. Compared to EKG of 1.2522 heart rate has increased. Cardiac/Tele Monitoring: Cardiac Monitoring: An Order was placed for continuous cardiac monitoring. The monitor shows a rate of 110 with a ventricular paced rhythm. [facility] bedside during management. Plan: Disposition:Hospitalization. Condition: Good History of Present Illness: 73-year-old female arrives for evaluation of illness. Patient states that starting yesterday she started developing fevers, chills, body aches. She took [place]ma-[place] last evening was feeling bit better however this morning symptoms returned. Worsening throughout the morning and thus took her 's Tamiflu as he is currently flu positive. Symptoms continue to get worse so she comes into the ER. She notes she is having significant difficulty breathing and feels like any exertion severely lightheaded and feels like she is about to pass out. She denies any falls, trauma, injuries. She is not having any headache. She denies any specific chest pain. She has a history of sarcoidosis and feels like this is worsening of that. Notes some diffuse body aches as well. Temperature has been up to 104 at home. Past Medical History:See Below Home Medications:See Below Allergies:See Below Vitals:Blood Pressure: 161/74, Pulse 84, RR 20, T 38.3C, O2 93% on RA Physical Exam: GENERAL: Patient is unwell appearing and in moderate distress. RESPIRATORY: Moderate dyspnea/tachypnea with diffuse wheezing CARDIOVASCULAR: Regular rate and rhythm.No murmur appreciated. GASTROINTESTINAL: Abdomen soft, non-tender, no peritonitis. EXTREMITIES: Normal motion all extremities, no cyanosis, no edema. NEUROLOGIC: Alert and oriented. No focal neurologic deficits appreciated SKIN: No rash, no jaundice, no diaphoresis. PSYCH: Appropriate GCS: 15 ED Course: Times/Reassessments: 5:10p - Dropped pressures, sepsis work-up initiated Critical Care: I have personally spent 40 minutes of critical care time in the direct management of this patient. Influenza A with hypoxia development of acute hypotension requiring resuscitation.. This was a life/limb threatening event. This 40 minutes is in excess of all separately billable procedures. Cheko Chung MD Past Med/Surg History Problem List (Updated 08/04/24 @ 22:25 by Cheko Chung MD) Hypoxia (Acute) Influenza A (Acute) Flu Paroxysmal atrial flutter Hypomagnesemia (Acute) Diabetes Hypomagnesemia Asthma exacerbation (Acute) Acute respiratory failure with hypoxia (Acute) COVID-19 (Acute) Mitral stenosis History of colon polyps Pulmonary embolism (Chronic) Hypercholesterolemia Heart block AV third degree (Acute) Near syncope (Acute) Weakness (Acute) Prediabetes on ozempic weekly DVT prophylaxis ICD (implantable cardioverter-defibrillator), dual, in situ History of pulmonary embolus (PE) 1996 and 2000 requiring long-term anticoagulation HTN (hypertension) Hemochromatosis associated with mutation in HFE gene Atrial fibrillation (Chronic) happens intermittently--follows with Dr. Schneider---on metoprolol/reason for ICD Sarcoidosis of lung (Chronic) Medical History Asthma inhaler daily/prn Atrial fibrillation happens intermittently--follows with Dr. 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 Macular degeneration Morbid obesity with BMI of 45.0-49.9, adult On anticoagulant therapy warfarin daily Sarcoidosis of lung Squamous cell carcinoma Surgical History History of appendectomy History of bronchoscopy History of cardioversion roughly 20yrs ago History of colonoscopy History of dilatation and curettage x5 in 1974 History of hammertoe correction History of implantable cardioverter-defibrillator (ICD) placement (~12/06/19) History of laparoscopic cholecystectomy History of Mohs micrographic surgery for skin cancer x2 History of open reduction and internal fixation (ORIF) procedure right leg fx--hardware in place History of partial hysterectomy History of right knee joint replacement History of squamous cell carcinoma excision History of tooth extraction History of total left hip replacement History of tubal ligation Family History Aunt Breast cancer Mother Alzheimer disease Father Lung cancer Other No family history of adverse response to anesthesia Social History Smoking Status: Never smoker Second Hand Exposure: Yes (parents smoked); Do You Dip or Chew Tobacco: No; Hx Alcohol Use: Yes Alcohol type: wine Hx Substance Use: No Preferred Language: Tajik Communication Ability: Effective Policy Issue Clerk Required: No Beliefs That Will Affect Care: None marital status: Current Living Situation: Spouse Feels Safe at Home: Yes Safety Concerns: Feels Safe At This Time Assistive Devices: None Allergies Allergies Allergy/AdvReac Type Severity Reaction Status Date / Time loratadine Allergy Intermediate HEART RACE Verified 07/09/24 14:13 morphine Allergy Intermediate caused Verified 07/09/24 14:13 jerky body movement Penicillins Allergy Intermediate RASH ALL Verified 07/09/24 14:13 OVER erythromycin base AdvReac Mild STOMACH Verified 07/09/24 14:13 ACHES pseudoephedrine AdvReac Mild INTOLERANT Verified 07/09/24 14:13 Sulfa (Sulfonamide AdvReac Mild STOMACH Verified 07/09/24 14:13 Antibiotics) ACHES Home Meds Home Medications Medication Instructions Recorded Confirmed cholecalciferol (vitamin D3) 25 1,000 units PO QAM 02/08/19 08/04/24 mcg (1,000 unit) capsule metformin 500 mg tablet 500 mg PO BID 02/08/19 08/04/24 warfarin 2 mg tablet (Coumadin) 1 - 2 mg PO PM 12/05/19 08/04/24 montelukast 10 mg tablet 10 mg PO QAM 03/07/20 08/04/24 (Singulair) semaglutide 0.25 mg or 0.5 mg (2 0.75 mg subcut WK 08/19/20 08/04/24 mg/1.5 mL) subcutaneous pen injector (Ozempic) [id number] 5 mg-zeaxanth 2 cap PO BID 06/16/21 08/04/24 1 mg-bilberry 7.5 mg-herbal capsule (Screenhero [employer] Formula) fluticasone propionate 50 mcg inhalation DAILY PRN 05/30/22 08/04/24 Allergy Symptoms mometasone-formoterol HFA 200 2 inh inhalation DAILY PRN sob 05/30/22 08/04/24 mcg-5 mcg/actuation aerosol inhaler (Dulera) rosuvastatin 10 mg tablet 10 mg PO DAILY 05/30/22 08/04/24 [place]ma-[place] Plus Cold-Flu 1 tab PO DAILY PRN cold/flu 08/04/24 08/04/24 symptoms oseltamivir 75 mg capsule 75 mg PO DIRECTED 08/04/24 08/04/24 Previous Rx's Medication Instructions Recorded metoprolol tartrate 50 mg tablet 50 mg PO DIRECTED PRN AFIB #90 05/19/22 tabs albuterol sulfate 90 mcg/actuation 2 puffs inhalation QID PRN 06/03/22 aerosol inhaler (Ventolin HFA) shortness of breath or wheezing #8.5 grams benzonatate 100 mg capsule 100 mg PO TID PRN cough #30 caps 06/03/22 metoprolol succinate 25 mg 25 mg PO QAM #90 tabs 06/17/23 tablet,extended release 24 hr sotalol 160 mg tablet 240 mg (1.5 x 160 mg) PO BID #270 06/17/23 tabs Results & Data (ED) Vital Signs Vital Signs - 24 hr 08/04/24 14:41 08/04/24 15:40 08/04/24 15:46 Temperature 38.3 C H Temperature Source Oral Pulse Rate 84 Pulse Rate [Left Finger] 115 H Pulse Rate from SpO2 Sensor Respiratory Rate 20 20 Respiratory Effort / Characteristics Non-Labored Non-Labored Spontaneous Respiratory Depth Normal Respiratory Pattern Regular Bradypnea Blood Pressure 161/74 H 103/71 Blood Pressure Mean 103 81 Blood Pressure Position Sitting Pulse Oximetry 93 92 Oxygen Delivery Method Room Air Room Air Oxygen Flow Rate Sepsis Recent Fever Within 48 Hours Yes Sepsis New/Unexplained Change in Mental Status No Sepsis Action Taken by Nursing No Action Required 08/04/24 16:00 08/04/24 16:06 08/04/24 16:15 Temperature Temperature Source Pulse Rate 110 H 111 H Pulse Rate [Left Finger] Pulse Rate from SpO2 Sensor 111 H 111 H Respiratory Rate 17 20 Respiratory Effort / Characteristics Respiratory Depth Respiratory Pattern Blood Pressure 120/69 Blood Pressure Mean 94 Blood Pressure Position Pulse Oximetry 97 97 Oxygen Delivery Method Oxygen Flow Rate Sepsis Recent Fever Within 48 Hours Sepsis New/Unexplained Change in Mental Status Sepsis Action Taken by Nursing 08/04/24 16:16 08/04/24 16:25 08/04/24 16:30 Temperature 38.1 C H Temperature Source Oral Pulse Rate 111 H Pulse Rate [Left Finger] Pulse Rate from SpO2 Sensor Respiratory Rate Respiratory Effort / Characteristics Respiratory Depth Respiratory Pattern Blood Pressure 81/50 L Blood Pressure Mean 69 Blood Pressure Position Pulse Oximetry Oxygen Delivery Method Oxygen Flow Rate Sepsis Recent Fever Within 48 Hours Sepsis New/Unexplained Change in Mental Status Sepsis Action Taken by Nursing 08/04/24 16:30 08/04/24 16:31 08/04/24 16:32 Temperature Temperature Source Pulse Rate 113 H Pulse Rate [Left Finger] Pulse Rate from SpO2 Sensor 113 H Respiratory Rate 20 30 H Respiratory Effort / Characteristics Labored Non-Labored Respiratory Depth Respiratory Pattern Blood Pressure Blood Pressure Mean Blood Pressure Position Pulse Oximetry 94 88 L 94 Oxygen Delivery Method Room Air Nasal Cannula Oxygen Flow Rate 4 Sepsis Recent Fever Within 48 Hours Sepsis New/Unexplained Change in Mental Status Sepsis Action Taken by Nursing 08/04/24 16:42 08/04/24 16:51 08/04/24 16:57 Temperature Temperature Source Pulse Rate 107 H 108 H 108 H Pulse Rate [Left Finger] Pulse Rate from SpO2 Sensor 107 H 109 H 109 H Respiratory Rate 25 H 20 Respiratory Effort / Characteristics Respiratory Depth Respiratory Pattern Blood Pressure Blood Pressure Mean Blood Pressure Position Pulse Oximetry 93 93 92 Oxygen Delivery Method Oxygen Flow Rate Sepsis Recent Fever Within 48 Hours Sepsis New/Unexplained Change in Mental Status Sepsis Action Taken by Nursing 08/04/24 17:00 08/04/24 17:06 08/04/24 17:16 Temperature Temperature Source Pulse Rate 113 H Pulse Rate [Left Finger] Pulse Rate from SpO2 Sensor 113 H Respiratory Rate 19 Respiratory Effort / Characteristics Respiratory Depth Respiratory Pattern Blood Pressure 69/43 L 107/67 Blood Pressure Mean 55 73 Blood Pressure Position Pulse Oximetry 94 Oxygen Delivery Method Oxygen Flow Rate Sepsis Recent Fever Within 48 Hours Sepsis New/Unexplained Change in Mental Status Sepsis Action Taken by Nursing 08/04/24 17:18 08/04/24 17:22 08/04/24 17:24 Temperature Temperature Source Pulse Rate 115 H 70 Pulse Rate [Left Finger] Pulse Rate from SpO2 Sensor 60 Respiratory Rate 19 28 H Respiratory Effort / Characteristics Respiratory Depth Respiratory Pattern Blood Pressure 93/68 L Blood Pressure Mean 74 Blood Pressure Position Pulse Oximetry 94 Oxygen Delivery Method Oxygen Flow Rate Sepsis Recent Fever Within 48 Hours Sepsis New/Unexplained Change in Mental Status Sepsis Action Taken by Nursing 08/04/24 17:30 08/04/24 17:42 Temperature Temperature Source Pulse Rate 115 H Pulse Rate [Left Finger] Pulse Rate from SpO2 Sensor 114 H Respiratory Rate 20 Respiratory Effort / Characteristics Respiratory Depth Respiratory Pattern Blood Pressure 84/59 L 99/65 L Blood Pressure Mean 65 76 Blood Pressure Position Pulse Oximetry 93 Oxygen Delivery Method Oxygen Flow Rate Sepsis Recent Fever Within 48 Hours Sepsis New/Unexplained Change in Mental Status Sepsis Action Taken by Nursing Laboratory Data 08/04/24 14:55 08/04/24 14:55 Lab Results 08/04/24 08/04/24 08/04/24 Range/Units 14:55 15:38 17:24 WBC 7.55 (4.8-10.8) K/ul RBC 4.47 (4.20-5.40) M/uL Hgb 14.0 (12.0-16.0) g/dl Hct 41.1 (37.0-47.0) % MCV 91.9 (80.0-100.0) fL MCH 31.3 (25.0-34.0) pg MCHC 34.1 (32.0-36.0) g/dL RDW Std Deviation 45.2 (36.4-46.3) fL RDW Coeff of Blanca 13.3 (11.5-14.5) % Plt Count 156 (130-400) K/uL MPV 10.5 (9.4-12.4) fL Immature Gran % (Auto) 0.3 % Neut % (Auto) 85.5 % Lymph % (Auto) 3.3 % [place] % (Auto) 9.7 % Eos % (Auto) 0.8 % Baso % (Auto) 0.4 % Neut # (Auto) 6.46 (1.40-6.50) K/uL Lymph # (Auto) 0.25 L (1.20-3.40) K/uL [place] # (Auto) 0.73 H (0.11-0.59) K/uL Eos # (Auto) 0.06 (0.00-0.50) K/uL Baso # (Auto) 0.03 (0.00-0.20) K/uL Immature Gran # (Auto) 0.02 (0.01-0.20) K/uL Sodium 137 (136-145) mmol/L Potassium 4.0 (3.5-5.1) mmol/L Chloride 102 (98-107) mmol/L Carbon Dioxide 28 (21-32) mmol/L Anion Gap 7 (3-11) BUN 13 (6-23) mg/dl Creatinine 0.74 (0.6-1.2) mg/dl Est Cr Clr Drug Dosing 104.9 ml/min eGFR 85.38 BUN/Creatinine Ratio 17.6 (10-20) Glucose 116 H (70-99(Fasting)) mg/dl Lactate 2.2 H* (0.4-2.0) mmol/L Calcium 9.5 (8.6-10.3) mg/dl Magnesium 1.5 L (1.7-2.4) mg/dl Total Bilirubin 0.9 (0.2-1.0) mg/dl AST 22 (13-39) U/L ALT 13 (7-52) U/L Alkaline Phosphatase 80 (34-104) U/L Troponin I High Sens < 2.3 (0-14) pg/ml Total Protein 7.2 (6.0-8.3) gm/dl Albumin 4.1 (3.4-5.0) gm/dl Globulin 3.1 (2.5-4.0) gm/dl Albumin/Globulin Ratio 1.3 (0.9-2) Procalcitonin (0-0.5) ng/ml Nasal Screen MRSA (PCR) (Negative) SARS-CoV-2 (PCR) NEGATIVE (Negative) Influenza Type A (PCR) Positive A (Neg) Influenza Type B (PCR) Negative (Neg) RSV (RT-PCR) Negative (Neg) 08/04/24 08/04/24 Range/Units 17:32 17:33 WBC (4.8-10.8) K/ul RBC (4.20-5.40) M/uL Hgb (12.0-16.0) g/dl Hct (37.0-47.0) % MCV (80.0-100.0) fL MCH (25.0-34.0) pg MCHC (32.0-36.0) g/dL RDW Std Deviation (36.4-46.3) fL RDW Coeff of Blanca (11.5-14.5) % Plt Count (130-400) K/uL MPV (9.4-12.4) fL Immature Gran % (Auto) % Neut % (Auto) % Lymph % (Auto) % [place] % (Auto) % Eos % (Auto) % Baso % (Auto) % Neut # (Auto) (1.40-6.50) K/uL Lymph # (Auto) (1.20-3.40) K/uL [place] # (Auto) (0.11-0.59) K/uL Eos # (Auto) (0.00-0.50) K/uL Baso # (Auto) (0.00-0.20) K/uL Immature Gran # (Auto) (0.01-0.20) K/uL Sodium (136-145) mmol/L Potassium (3.5-5.1) mmol/L Chloride (98-107) mmol/L Carbon Dioxide (21-32) mmol/L Anion Gap (3-11) BUN (6-23) mg/dl Creatinine (0.6-1.2) mg/dl Est Cr Clr Drug Dosing ml/min eGFR BUN/Creatinine Ratio (10-20) Glucose (70-99(Fasting)) mg/dl Lactate (0.4-2.0) mmol/L Calcium (8.6-10.3) mg/dl Magnesium (1.7-2.4) mg/dl Total Bilirubin (0.2-1.0) mg/dl AST (13-39) U/L ALT (7-52) U/L Alkaline Phosphatase (34-104) U/L Troponin I High Sens (0-14) pg/ml Total Protein (6.0-8.3) gm/dl Albumin (3.4-5.0) gm/dl Globulin (2.5-4.0) gm/dl Albumin/Globulin Ratio (0.9-2) Procalcitonin 0.04 (0-0.5) ng/ml Nasal Screen MRSA (PCR) Negative (Negative) SARS-CoV-2 (PCR) (Negative) Influenza Type A (PCR) (Neg) Influenza Type B (PCR) (Neg) RSV (RT-PCR) (Neg) Administered Medications Albuterol (Albut/Ipratrop 3mg/0.5mg Neb 3 Ml Vial) 3 ml NEB Q6R TA; Protocol Stop: 09/03/24 18:59 Last Admin: 08/04/24 21:27 Dose: 3 ml Documented By: TMP Sodium Chloride (Nss) 1,000 mls @ 125 mls/hr IV .Q8H TA Stop: 08/05/24 18:14 Last Admin: 08/04/24 20:43 Dose: 125 mls/hr Documented By: ESA Methylprednisolone 60 mg/ (Syringe) 0.96 mls @ 1.5 mls/min IV Q12H TA Stop: 09/03/24 20:59 Last Admin: 08/04/24 20:47 Dose: 1.5 mls/min Documented By: ESA Oseltamivir Phosphate (Oseltamivir Phosphate Susp 75 Mg/12.5 Ml Udp) 75 mg PO BID TA Stop: 08/09/24 20:59 Last Admin: 08/04/24 22:32 Dose: 75 mg Documented By: ESA Sotalol HCl (Sotalol Hcl 80 Mg Tab) 240 mg PO BID TA Stop: 09/03/24 20:59 Last Admin: 08/04/24 22:34 Dose: 240 mg Documented By: ESA Warfarin Sodium (Warfarin Sod 1 Mg Tab) 1 mg PO [id number]@1600 TA Stop: 09/03/24 20:59 Last Admin: 08/04/24 22:32 Dose: 1 mg Documented By: ESA Discontinued Medications Albuterol (Albut/Ipratrop 3mg/0.5mg Neb 3 Ml Vial) 12 ml NEB ONE ONE; Protocol Stop: 08/04/24 15:14 Last Admin: 08/04/24 15:46 Dose: 12 ml Documented By: VASU Dexamethasone Sodium Phosphate (DexamethasonePf 10 Mg/Ml Vial) 10 mg IV NOW ONE Stop: 08/04/24 15:14 Last Admin: 08/04/24 15:43 Dose: 10 mg Documented By: ROSARIO Acetaminophen (Ofirmev) 1,000 mg in 100 mls @ 400 mls/hr IV NOW STA Stop: 08/04/24 15:27 Last Infusion: 08/04/24 16:08 Dose: Infused Documented By: Admin: 08/04/24 15:40 Dose: 400 mls/hr Documented By: ROSARIO Magnesium Sulfate/Dextrose (Magnesium Sulfate / D5w) 1 gm in 100 mls @ 100 mls/hr IV NOW STA Stop: 08/04/24 16:15 Last Infusion: 08/04/24 18:27 Dose: Infused Documented By: Admin: 08/04/24 15:41 Dose: 100 mls/hr Documented By: ROSARIO Sodium Chloride (Nss) 1,000 mls @ 999 mls/hr IV .Q1H1M ONE Stop: 08/04/24 18:07 Last Admin: 08/04/24 17:37 Dose: 999 mls/hr Documented By: EMIL Cefepime HCl (Maxipime 2000mg) 2,000 mg in 20 mls @ 5 mls/min IV NOW STA; Protocol Stop: 08/04/24 17:16 Last Admin: 08/04/24 17:36 Dose: 5 mls/min Documented By: EMIL Doxycycline Hyclate 100 mg/ (Dextrose) 100 mls @ 50 mls/hr IV NOW STA Stop: 08/04/24 19:12 Last Admin: 08/04/24 20:43 Dose: 50 mls/hr Documented By: ESA Sodium Chloride (Nss) 1,000 mls @ 999 mls/hr IV .Q1H1M ONE Stop: 08/04/24 19:11 Last Admin: 08/04/24 18:22 Dose: 999 mls/hr Documented By: EMIL Vancomycin HCl 2,750 mg/ (Sodium Chloride) 555 mls @ 180 mls/hr IV NOW ONE Stop: 08/04/24 21:49 Last Admin: 08/04/24 20:45 Dose: 180 mls/hr Documented By: ESA Ioversol (Optiray 320 125ml) 118 ml IV ONCE ONE Stop: 08/04/24 18:42 Last Admin: 08/04/24 18:41 Dose: 118 ml Documented By: [facility] Imaging Data Radiologist's Impression: Chest X-Ray 08/04/24 14:47 HISTORY: Shortness of breath TECHNIQUE: Portable AP radiograph of the chest. COMPARISON: Chest radiograph dated 05/30/2022 FINDINGS: No focal lung consolidation. No pneumothorax or effusion. Mild vascular congestion. Cardiomegaly. Left-sided aortic arch. Midline trachea. Left subclavian approach dual-lead pacer/AICD. Included upper abdomen is unremarkable. No acute osseous abnormality. IMPRESSION: 1. No acute cardiopulmonary findings. 2. Cardiomegaly with mild vascular congestion. Electronically signed by Khris Colon 08-04-2024 4:30 PM Discharge Plan Visit Data Chief Complaint: Flu Like Symptoms Stated Complaint: COUGH, HEADACHE, VOMITING, BODY ACHES ED Provider: Cheko Chung Discharge Problem: Influenza A, Hypoxia Patient Disposition: Admitted As Inpatient Discharge Instructions Interventions: ED Discharge Assessment Last Done: 08/04/24 18:21
[2024-08-04] MEDS: ACETAMINOPHEN 1,000 MG/100 ML VIAL IV STA (15:40)
[2024-08-04] MEDS: MAGNESIUM SULFATE / D5W 1 GM/100 ML BAG IV STA (15:41)
[2024-08-04 15:43] LABS: Basophils # (auto) 0.03 K/uL (0.00-0.20); Basophils % (auto) 0.4 %; Eosinophils # (auto) 0.06 K/uL (0.00-0.50); Eosinophils % (auto) 0.8 %; Hematocrit (blood only) 41.1 % (37.0-47.0); Immature Granulocytes # (auto) 0.02 K/uL (0.01-0.20); Immature Granulocytes % (auto) 0.3 %; Lymphocytes # (auto) 0.25 K/uL (1.20-3.40); Lymphocytes % (auto) 3.3 %; Mean Corpuscular Hemoglobin 31.3 pg (25.0-34.0); Mean Corpuscular Hgb Conc 34.1 g/dL (32.0-36.0); Mean Corpuscular Volume 91.9 fL (80.0-100.0); Mean Platelet Volume 10.5 fL (9.4-12.4); Monocytes # (auto) 0.73 K/uL (0.11-0.59); Monocytes % (auto) 9.7 %; Neutrophils # (auto) 6.46 K/uL (1.40-6.50); Neutrophils % (auto) 85.5 %; Platelet Count 156 K/uL (130-400); RDW Coefficient of Variation 13.3 % (11.5-14.5); RDW Standard Deviation 45.2 fL (36.4-46.3); Red Blood Count 4.47 M/uL (4.20-5.40); White Blood Count 7.55 K/ul (4.8-10.8)
[2024-08-04] MEDS: dexAMETHasone**PF** 10 MG/ML VIAL IV ONE (15:43)
[2024-08-04] MEDS: ALBUT/IPRATROP 3MG/0.5MG NEB 3 ML VIAL NEB ONE (15:46)
[2024-08-04 15:59] LABS: Alanine Aminotransferase 13 U/L (7-52); Albumin Globulin Ratio 1.3 (0.9-2); Albumin Level 4.1 gm/dl (3.4-5.0); Alkaline Phosphatase 80 U/L (34-104); Anion Gap 7 (3-11); Aspartate Aminotransferase 22 U/L (13-39); BUN Creatinine Ratio 17.6 (10-20); Bilirubin,Total 0.9 mg/dl (0.2-1.0); Blood Urea Nitrogen 13 mg/dl (6-23); Calcium 9.5 mg/dl (8.6-10.3); Carbon Dioxide 28 mmol/L (21-32); Chloride 102 mmol/L (98-107); Creatinine Clr Calc Pharmacy 104.9 ml/min; Globulin 3.1 gm/dl (2.5-4.0); Glucose 116 mg/dl (70-99(Fasting)); Magnesium 1.5 mg/dl (1.7-2.4); Sodium 137 mmol/L (136-145); Total Protein 7.2 gm/dl (6.0-8.3)
[2024-08-04 16:05] LABS: Troponin I High Sensitivity < 2.3 pg/ml (0-14)
--- NOTE | 2024-08-04 16:30 | XRay Report ---
HISTORY: Shortness of breath TECHNIQUE: Portable AP radiograph of the chest. COMPARISON: Chest radiograph dated 05/30/2022 FINDINGS: No focal lung consolidation. No pneumothorax or effusion. Mild vascular congestion. Cardiomegaly. Left-sided aortic arch. Midline trachea. Left subclavian approach dual-lead pacer/AICD. Included upper abdomen is unremarkable. No acute osseous abnormality. IMPRESSION: 1. No acute cardiopulmonary findings. 2. Cardiomegaly with mild vascular congestion. Electronically signed by Khris Colon 08-04-2024 4:30 PM
[2024-08-04 16:42] LABS: Influenza A virus by PCR Positive (Neg); Influenza B virus by PCR Negative (Neg); RSV by PCR Negative (Neg); SARS CoV2 RNA(COVID-19) Ceph NEGATIVE (Negative)
[2024-08-04] MEDS: CEFEPIME 2000MG 2,000 MG/20 ML SYR IV STA (17:36)
[2024-08-04] MEDS: SODIUM CHLORIDE 0.9% 1,000 ML IV ONE ×2 (17:37→18:22)
[2024-08-04] MEDS ORDERED: ACETAMINOPHEN 325 MG TAB PO PRN (17:42)
[2024-08-04] MEDS ORDERED: ONDANSETRON INJ 2 MG/ML 2 ML VIAL IV PRN (17:42)
--- NOTE | 2024-08-04 18:01 | History & Physical Report ---
Date of Service August 04, 2024 Assessment & Plan (1) Flu: Plan: #Sepsis likely 2/2 flu vs. bacteremia vs. CAP #Flu-like symptoms likely 2/2 flu #Hypotension, tachycardia, fever #Asthma, sarcoid -tamiflu -steroids -scheduled duonebs -oxygen PRN -LA pending -bcx, sputum cx, UA -tylenol for fever -empiric broad spectrum abx -fluid resuscitation #Hx multiple PEs on warfarin -pt states she feels similar to when she previously developed PEs -despite therapeutic INR, will order CTA -cont warfarin #PAF, MR #Htn #3rd-degree heart block s/p ICD #DM2 -home meds IVF Diabetic diet Restart home warfarin History of Present Illness Primary Care Provider: Teresa Collins MD 73F pmh asthma, sarcoidosis, PAF, MR, htn, 3rd-degree heart block s/p ICD, hemochromatosis, multiple PEs on warfarin, DM2 who presents to the ED with flu- like symptoms. Patient states that last night she began to develop fever, chills, SOB, lightheadedness, pre-syncope, myalgias. Symptoms worsened this AM despite OTC medication usage, so she presented. Her also has the flu, and she took one of his tamiflu at home. On my evaluation patient states her breathing has significantly improved, though she still feels sickly. States that she feels somewhat similar to when she previously developed PEs and also bacteremia. Of note, patient with two episodes of PEs for which she has been on warfarin for many years. Also, sarcoidosis was very active in her youth, but has not been active in many years. Asthma is usually well controlled. Denies current cp, palpitations, but does still feel somewhat SOB, with serosanguinous sputum production. Allergies Allergy/AdvReac Type Severity Reaction Status Date / Time loratadine Allergy Intermediate HEART RACE Verified 07/09/24 14:13 morphine Allergy Intermediate caused Verified 07/09/24 14:13 jerky body movement Penicillins Allergy Intermediate RASH ALL Verified 07/09/24 14:13 OVER erythromycin base AdvReac Mild STOMACH Verified 07/09/24 14:13 ACHES pseudoephedrine AdvReac Mild INTOLERANT Verified 07/09/24 14:13 Sulfa (Sulfonamide AdvReac Mild STOMACH Verified 07/09/24 14:13 Antibiotics) ACHES Home Medications Medication Instructions Recorded Confirmed Type cholecalciferol (vitamin D3) 25 1,000 units PO QAM 02/08/19 08/04/24 History mcg (1,000 unit) capsule metformin 500 mg tablet 500 mg PO BID 02/08/19 08/04/24 History warfarin 2 mg tablet (Coumadin) 1 - 2 mg PO PM 12/05/19 08/04/24 History montelukast 10 mg tablet 10 mg PO QAM 03/07/20 08/04/24 History (Singulair) semaglutide 0.25 mg or 0.5 mg (2 0.75 mg subcut WK 08/19/20 08/04/24 History mg/1.5 mL) subcutaneous pen injector (Run3D) [id number]-dma-bqfaxw 5 mg-zeaxanth 2 cap PO BID 06/16/21 08/04/24 History 1 mg-bilberry 7.5 mg-herbal capsule ([employer] [facility] Formula) metoprolol tartrate 50 mg tablet 50 mg PO DIRECTED PRN AFIB #90 05/19/22 08/04/24 Rx tabs fluticasone propionate 50 mcg inhalation DAILY PRN 05/30/22 08/04/24 History Allergy Symptoms mometasone-formoterol HFA 200 2 inh inhalation DAILY PRN sob 05/30/22 08/04/24 History mcg-5 mcg/actuation aerosol inhaler (Dulera) rosuvastatin 10 mg tablet 10 mg PO DAILY 05/30/22 08/04/24 History albuterol sulfate 90 mcg/actuation 2 puffs inhalation QID PRN 06/03/22 08/04/24 Rx aerosol inhaler (Ventolin HFA) shortness of breath or wheezing #8.5 grams benzonatate 100 mg capsule 100 mg PO TID PRN cough #30 caps 06/03/22 08/04/24 Rx metoprolol succinate 25 mg 25 mg PO QAM #90 tabs 06/17/23 08/04/24 Rx tablet,extended release 24 hr sotalol 160 mg tablet 240 mg (1.5 x 160 mg) PO BID #270 06/17/23 08/04/24 Rx tabs Thelma-[place] Plus Cold-Flu 1 tab PO DAILY PRN cold/flu 08/04/24 08/04/24 History symptoms oseltamivir 75 mg capsule 75 mg PO DIRECTED 08/04/24 08/04/24 History Past Med/Surg History Problem List (Updated 08/04/24 @ 17:53 by Chad Warren MD) Flu Paroxysmal atrial flutter Hypomagnesemia (Acute) Diabetes Hypomagnesemia Asthma exacerbation (Acute) Acute respiratory failure with hypoxia (Acute) COVID-19 (Acute) Mitral stenosis History of colon polyps Pulmonary embolism (Chronic) Hypercholesterolemia Heart block AV third degree (Acute) Near syncope (Acute) Weakness (Acute) Prediabetes on ozempic weekly DVT prophylaxis ICD (implantable cardioverter-defibrillator), dual, in situ History of pulmonary embolus (PE) 1996 and 2000 requiring long-term anticoagulation HTN (hypertension) Hemochromatosis associated with mutation in HFE gene Atrial fibrillation (Chronic) happens intermittently--follows with Dr. Schneider---on metoprolol/reason for ICD Sarcoidosis of lung (Chronic) Medical History Asthma inhaler daily/prn Atrial fibrillation happens intermittently--follows with Dr. 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 Macular degeneration Morbid obesity with BMI of 45.0-49.9, adult On anticoagulant therapy warfarin daily Sarcoidosis of lung Squamous cell carcinoma Surgical History History of appendectomy History of bronchoscopy History of cardioversion roughly 20yrs ago History of colonoscopy History of dilatation and curettage x5 in 1974 History of hammertoe correction History of implantable cardioverter-defibrillator (ICD) placement (~12/06/19) History of laparoscopic cholecystectomy History of Mohs micrographic surgery for skin cancer x2 History of open reduction and internal fixation (ORIF) procedure right leg fx--hardware in place History of partial hysterectomy History of right knee joint replacement History of squamous cell carcinoma excision History of tooth extraction History of total left hip replacement History of tubal ligation Family History Aunt Breast cancer Mother Alzheimer disease Father Lung cancer Other No family history of adverse response to anesthesia Social History Smoking Status: Never smoker Second Hand Exposure: Yes (parents smoked); Do You Dip or Chew Tobacco: No; Hx Alcohol Use: Yes Alcohol type: wine Hx Substance Use: No Preferred Language: Kosovan Communication Ability: Effective Web Coordinator Required: No Beliefs That Will Affect Care: None marital status: Current Living Situation: Spouse Feels Safe at Home: Yes Assistive Devices: None Review of Systems Constitutional: + fever, + chills, + body aches and + fa tigue Respiratory: + cough, + change in sputum and + dyspne a Cardiovascular: no chest pain and no palpitations Physical Exam Constitutional: WD/WN, vitals as above Respiratory: mild patchy wheezes Cardiovascular: Rate/Rhythm: regular rate and regular rhythm Results & Data Results & Data Vital Signs (Past 12 Hours) Vital Signs Temp Pulse Pulse Resp BP Pulse Ox O2 Del Method 08/04/24 17:42 115 H 20 99/65 L 93 08/04/24 17:30 84/59 L 08/04/24 17:24 70 28 H 94 08/04/24 17:22 93/68 L 08/04/24 17:18 115 H 19 08/04/24 17:16 107/67 08/04/24 17:06 113 H 19 94 08/04/24 17:00 69/43 L 08/04/24 16:57 108 H 20 92 08/04/24 16:51 108 H 25 H 93 08/04/24 16:42 107 H 93 08/04/24 16:32 94 Nasal Cannula 08/04/24 16:31 30 H 88 L Room Air 08/04/24 16:30 113 H 20 94 08/04/24 16:30 81/50 L 08/04/24 16:25 38.1 C H 08/04/24 16:16 111 H 08/04/24 16:15 111 H 20 97 08/04/24 16:06 110 H 17 97 08/04/24 16:00 120/69 08/04/24 15:46 115 H 20 92 Room Air 08/04/24 15:40 103/71 08/04/24 14:41 38.3 C H 84 20 161/74 H 93 Room Air O2 Flow Rate 08/04/24 17:42 08/04/24 17:30 08/04/24 17:24 08/04/24 17:22 08/04/24 17:18 08/04/24 17:16 08/04/24 17:06 08/04/24 17:00 08/04/24 16:57 08/04/24 16:51 08/04/24 16:42 08/04/24 16:32 4 08/04/24 16:31 08/04/24 16:30 08/04/24 16:30 08/04/24 16:25 08/04/24 16:16 08/04/24 16:15 08/04/24 16:06 08/04/24 16:00 08/04/24 15:46 08/04/24 15:40 08/04/24 14:41 Laboratory Results Abnormal lab results 08/04/24 08/04/24 Range/Units 14:55 15:38 Lymph # (Auto) 0.25 L (1.20-3.40) K/uL [place] # (Auto) 0.73 H (0.11-0.59) K/uL Glucose 116 H (70-99(Fasting)) mg/dl Magnesium 1.5 L (1.7-2.4) mg/dl Influenza Type A (PCR) Positive A (Neg) Diagnostic Findings Chest X-Ray 08/04/24 14:47 HISTORY: Shortness of breath TECHNIQUE: Portable AP radiograph of the chest. COMPARISON: Chest radiograph dated 05/30/2022 FINDINGS: No focal lung consolidation. No pneumothorax or effusion. Mild vascular congestion. Cardiomegaly. Left-sided aortic arch. Midline trachea. Left subclavian approach dual-lead pacer/AICD. Included upper abdomen is unremarkable. No acute osseous abnormality. IMPRESSION: 1. No acute cardiopulmonary findings. 2. Cardiomegaly with mild vascular congestion. Electronically signed by Khris Colon 08-04-2024 4:30 PM Code Status & VTE Plan VTE Prophylaxis Plan VTE Prophylaxis will be ordered: Yes Reason for no VTE drug order: Drug interaction
[2024-08-04] MEDS ORDERED: VANCOMYCIN CONSULT ACTIVE PRN (18:37)
[2024-08-04] MEDS: OPTIRAY 320 125ml IV ONE (18:41)
--- NOTE | 2024-08-04 19:17 | CT Scan Report ---
HISTORY: Chest pain and shortness of breath. TECHNIQUE: Helical CT angiography of the chest was performed following uneventful administration of 118 cc of Optiray 320 IV contrast. Images are presented in axial and coronal reformats. Coronal and sagittal MIP reconstructions are also provided. COMPARISON: None. FINDINGS: No evidence of acute pulmonary embolism within the limitations of the study. The main pulmonary artery is dilated measuring up to 4 cm in diameter, which could be seen with pulmonary arterial hypertension. No evidence of aortic dissection or acute aortic process. No thoracic aortic aneurysm. Aortic valvular calcification. Severe mitral annular calcification. Cardiomegaly. No pericardial effusion. Coronary artery calcifications are not identified. Bulky mediastinal and bilateral hilar lymphadenopathy with associated calcifications. Thoracic esophagus and included thyroid gland are unremarkable. There is surgically absent. The included upper abdomen is otherwise unremarkable. The soft tissues of the chest wall are unremarkable aside from the pacer generator pack in the left anterior chest wall.Patchy areas of nonspecific groundglass opacity involving the apical right upper lobe. There is atelectasis involving the right middle lobe with volume loss and air bronchograms. Atelectasis or scarring also involves the lingula. Mild atelectasis at the lung bases. IMPRESSION: 1. No evidence of acute pulmonary embolism or acute aortic process. 2. Patchy nonspecific groundglass opacity involving the apical right upper lobe could be infectious or inflammatory. Follow-up chest CT is recommended in 1 to 2 months to evaluate for resolution. 3. Bulky mediastinal and bilateral hilar lymphadenopathy with associated calcifications. This could be secondary to an inflammatory process such as sarcoidosis or pneumoconiosis. Remote granulomatous disease could also have a similar appearance. Clinical correlation is recommended. 4. Mild cardiomegaly. Dilated main pulmonary artery, which could be seen in the setting of pulmonary arterial hypertension. 5. Additional chronic and/or incidental findings as above. Electronically signed by Khris Colon 08-04-2024 7:16 PM
[2024-08-04] MEDS ORDERED: METOPROLOL TARTRATE 50 MG TAB PO PRN (19:29)
[2024-08-04] MEDS ORDERED: FLUTICASONE PROPIONATE 50 MCG INH PRN (19:29)
[2024-08-04] MEDS ORDERED: ALBUTEROL HFA 8 GM INHALER INH PRN (19:29)
[2024-08-04] MEDS: SODIUM CHLORIDE 0.9% 1,000 ML IV SCH (20:43)
[2024-08-04] MEDS: DOXYCYCLINE HYCLATE 100 MG in DEXTROSE 5% MINI-B 100 ML IV STA (20:43)
[2024-08-04] MEDS: VANCOMYCIN HCL 2,750 MG in SODIUM CHLORIDE 0.9% 500 ML IV ONE (20:45)
[2024-08-04] MEDS: methylPREDNISolone 60 MG in SYRINGE 0 ML IV SCH (20:47)
[2024-08-04] MEDS ORDERED: methylPREDNISolone 125 MG/2 ML VIAL IV SCH (21:00)
[2024-08-04 21:07] LABS: INR 2.4 (0.9-1.1); Prothrombin Time 24.2 Seconds (9.0-12.0)
[2024-08-04] MEDS: ALBUT/IPRATROP 3MG/0.5MG NEB 3 ML VIAL NEB SCH (21:27)
[2024-08-04 22:30] LABS: Appearance Urine Clear (Clear); Bilirubin Urine Negative (Negative); Blood Urine Negative (Negative); Color Urine Yellow; Glucose Urine UA Negative (Negative); Ketones Urine Negative (Negative); Leukocyte Esterase Urine Negative (Negative); Nitrite Urine Negative (Negative); Protein Urine Negative (Negative); Specific Gravity Urine 1.028 (1.000-1.030); Urobilinogen Urine Negative (Negative)
[2024-08-04] MEDS: OSELTAMIVIR PHOSPHATE SUSP 75 MG/12.5 ML UDP PO SCH (22:32)
[2024-08-04] MEDS: WARFARIN SOD 1 MG TAB PO SCH (22:32)
[2024-08-04] MEDS: SOTALOL HCL 80 MG TAB PO SCH (22:34)
[2024-08-05] MEDS ORDERED: CEFEPIME 1000MG 1,000 MG/10 ML SYR IV SCH (02:00)
[2024-08-05] MEDS: CEFEPIME 2000MG 2,000 MG/20 ML SYR IV SCH (02:54)
[2024-08-05] MEDS: VANCOMYCIN HCL 1,250 MG in SODIUM CHLORIDE 0.9% 250 ML IV SCH (05:21)
[2024-08-05 07:12] LABS: INR 2.1 (0.9-1.1); Prothrombin Time 21.2 Seconds (9.0-12.0)
[2024-08-05] MEDS: FLUTICASONE/VILANTEROL 200/25MCG 14 PUFFS/INHALER INH SCH (07:21)
[2024-08-05] MEDS: CHOLECALCIFEROL 25 MCG (1000 UNITS) TAB PO SCH (07:23)
[2024-08-05] MEDS: MONTELUKAST SODIUM 10 MG TABLET PO SCH (07:23)
[2024-08-05] MEDS: ROSUVASTATIN CALCIUM 10 MG TAB PO SCH (07:24)
[2024-08-05] MEDS: CEROVITE ADV FORMULA TAB PO SCH (07:24)
[2024-08-05] MEDS: METOPROLOL SUCC 25MG EXT REL TAB PO SCH (07:26)
--- NOTE | 2024-08-05 16:06 | Hospitalist Progress Note ---
Date of Service August 05, 2024 Assessment & Plan (1) Influenza A: (2) Sarcoidosis of lung: Plan Ms. Toscano is a 73 year old woman with pmh asthma, sarcoidosis, PAF, MR, htn, 3rd-degree heart block s/p ICD, hemochromatosis, multiple PEs on warfarin, DM2 who presents to the ED with flu-like symptoms and is admited for sepsis iso influenza A with concern for superimposed bacterial infection #Sepsis likely 2/2 influenza a with superimpose bacterial infection *resolved #Flu-like symptoms likely 2/2 flu #Asthma #Sarcoidosis history of sarcoidosis, noted by calcified granulomatous disease on CTA Reduced steroids to daily IV, with plans to transition to po MRSA negative, d/c vanc transition to PO abx given notable clinical improvement -doxy and cefuroxime -scheduled duonebs -oxygen PRN, wean as able -discontinue IVF #Hx multiple PEs on warfarin CTA negative for PE -cont warfarin #PAF, MR #3rd-degree heart block s/p ICD continue metoprolol and sotalol -home meds replace lytes prn #DM2 monitor glucose while on steroids Diabetic diet continue warfarin Admission and Anticipated Discharge Date Admission Date: August 04, 2024 Subjective Reports feeling tired, but overall much improved since admission States she is relieved she was able to move and eat without nausea Denies chest pain or palpitations Still with cough and oxygen requirement Physical Exam Constitutional: WD/WN, vitals as above Respiratory: RLL wheezing noted, Cardiovascular: RRR, no murmur, no edema Results & Data Results & Data Vital Signs (Past 12 Hours) Vital Signs Temp Pulse Pulse Resp BP Pulse Ox O2 Del Method 08/05/24 12:01 74 18 94 Nasal Cannula 08/05/24 11:12 76 08/05/24 11:01 36.8 C 74 18 109/71 90 Nasal Cannula 08/05/24 07:38 75 18 93 Nasal Cannula 08/05/24 07:11 Nasal Cannula 08/05/24 07:00 36.5 C 76 20 105/61 93 Nasal Cannula 08/05/24 02:37 72 18 95 Nasal Cannula 08/05/24 02:21 37.2 C 71 18 127/88 95 Nasal Cannula O2 Flow Rate 08/05/24 12:01 2 08/05/24 11:12 08/05/24 11:01 2 08/05/24 07:38 3 08/05/24 07:11 3 08/05/24 07:00 4 08/05/24 02:37 2 08/05/24 02:21 3 Laboratory Results [facility] 08/05/24 06:15 Creatinine 0.70 Urine 08/04/24 Range/Units Unknown Urine Color Yellow Urine Appearance Clear (Clear) Urine pH 7.0 (4.5-7.5) Ur Specific [place] 1.028 (1.000-1.030) Urine Protein Negative (Negative) Urine Glucose (UA) Negative (Negative) Medications Administered Home Medications Medication Instructions Recorded Confirmed Last Taken cholecalciferol (vitamin D3) 25 1,000 units PO QAM 02/08/19 08/04/24 05/30/22 mcg (1,000 unit) capsule metformin 500 mg tablet 500 mg PO BID 02/08/19 08/04/24 05/30/22 warfarin 2 mg tablet (Coumadin) 1 - 2 mg PO PM 12/05/19 08/04/24 05/29/22 montelukast 10 mg tablet 10 mg PO QAM 03/07/20 08/04/24 05/30/22 (Singulair) semaglutide 0.25 mg or 0.5 mg (2 0.75 mg subcut WK 08/19/20 08/04/24 05/26/22 mg/1.5 mL) subcutaneous pen injector (Ozempic) [id number]-hsz-yemosm 5 mg-zeaxanth 2 cap PO BID 06/16/21 08/04/24 05/30/22 1 mg-bilberry 7.5 mg-herbal capsule ([employer] [facility] Formula) metoprolol tartrate 50 mg tablet 50 mg PO DIRECTED PRN AFIB #90 05/19/22 08/04/24 1 Month Ago tabs ~04/30/22 fluticasone propionate 50 mcg inhalation DAILY PRN 05/30/22 08/04/24 Unknown Allergy Symptoms mometasone-formoterol HFA 200 2 inh inhalation DAILY PRN sob 05/30/22 08/04/24 05/29/22 mcg-5 mcg/actuation aerosol inhaler (Dulera) rosuvastatin 10 mg tablet 10 mg PO DAILY 05/30/22 08/04/24 05/30/22 albuterol sulfate 90 mcg/actuation 2 puffs inhalation QID PRN 06/03/22 08/04/24 Unknown aerosol inhaler (Ventolin HFA) shortness of breath or wheezing #8.5 grams benzonatate 100 mg capsule 100 mg PO TID PRN cough #30 caps 06/03/22 08/04/24 08/04/24 metoprolol succinate 25 mg 25 mg PO QAM #90 tabs 06/17/23 08/04/24 Unknown tablet,extended release 24 hr sotalol 160 mg tablet 240 mg (1.5 x 160 mg) PO BID #270 06/17/23 08/04/24 Unknown tabs [place]lma-[place] Plus Cold-Flu 1 tab PO DAILY PRN cold/flu 08/04/24 08/04/24 08/04/24 symptoms oseltamivir 75 mg capsule 75 mg PO DIRECTED 08/04/24 08/04/24 08/04/24 Active Medications Generic Name Dose Route Start Last Admin Trade Name Freq PRN Reason Stop Dose Admin Albuterol 3 ml 08/04/24 19:00 08/05/24 11:59 Albut/Ipratrop 3mg/0.5mg Neb 3 Ml Vial NEB 09/03/24 18:59 3 ml Q6R TA Administration Protocol Fluticasone/Vilanterol 1 puffs 08/05/24 09:00 08/05/24 07:21 Fluticasone/Vilanterol 200/25mcg 14 Puffs/Inhaler INH 09/04/24 08:59 1 puffs DAILY TA Administration Metoprolol Succinate 25 mg 08/05/24 09:00 08/05/24 07:26 Metoprolol Succ 25mg Ext Rel Tab PO 09/04/24 08:59 25 mg QAM TA Administration Montelukast Sodium 10 mg 08/05/24 09:00 08/05/24 07:23 Montelukast Sodium 10 Mg Tablet PO 09/04/24 08:59 10 mg QAM TA Administration Multivitamins/Minerals 1 tab 08/05/24 09:00 08/05/24 07:24 Cerovite Adv Formula Tab PO 09/04/24 08:59 1 tab DAILY TA Administration Oseltamivir Phosphate 75 mg 08/04/24 21:00 08/05/24 07:25 Oseltamivir Phosphate Susp 75 Mg/12.5 Ml Udp PO 08/09/24 20:59 75 mg BID TA Administration Rosuvastatin Calcium 10 mg 08/05/24 09:00 08/05/24 07:24 Rosuvastatin Calcium 10 Mg Tab PO 09/04/24 08:59 10 mg DAILY TA Administration Sotalol HCl 240 mg 08/04/24 21:00 08/05/24 07:24 Sotalol Hcl 80 Mg Tab PO 09/03/24 20:59 240 mg BID TA Administration Vitamin D 25 mcg 08/05/24 09:00 08/05/24 07:23 Cholecalciferol 25 Mcg (1000 Units) Tab PO 09/04/24 08:59 25 mcg QAM TA Administration Warfarin Sodium 1 mg 08/04/24 21:00 08/05/24 16:02 Warfarin Sod 1 Mg Tab PO 09/03/24 20:59 1 mg [id number]@1600 TA Administration
[2024-08-05] MEDS: guaiFENesin 600 MG TABCR PO SCH (16:53)
[2024-08-05] MEDS: MAGNESIUM SULFATE / D5W 1 GM/100 ML BAG IV SCH (16:53)
[2024-08-05] MEDS: BENZONATATE 100 MG CAPSULE PO PRN (19:44)
[2024-08-05] MEDS: DOXYCYCLINE HYCLATE 100 MG CAP PO SCH (19:45)
[2024-08-05] MEDS: cefUROXime axetil 500 MG TAB PO SCH (19:45)
[2024-08-06 06:07] LABS: Hematocrit (blood only) 34.7 % (37.0-47.0); Hemoglobin 11.6 g/dl (12.0-16.0); Mean Corpuscular Hemoglobin 31.6 pg (25.0-34.0); Mean Corpuscular Hgb Conc 33.4 g/dL (32.0-36.0); Mean Corpuscular Volume 94.6 fL (80.0-100.0); Mean Platelet Volume 10.4 fL (9.4-12.4); Platelet Count 150 K/uL (130-400); RDW Coefficient of Variation 13.6 % (11.5-14.5); RDW Standard Deviation 47.3 fL (36.4-46.3); Red Blood Count 3.67 M/uL (4.20-5.40); White Blood Count 6.95 K/ul (4.8-10.8)
[2024-08-06 06:23] LABS: Calcium 8.5 mg/dl (8.6-10.3); Creatinine Clr Calc Pharmacy 87.2 ml/min; Potassium 4.1 mmol/L (3.5-5.1)
[2024-08-06] MEDS: methylPREDNISolone 40 MG in SYRINGE 0 ML IV SCH ×2 (08:42→20:16)
[2024-08-06] MEDS ORDERED: LEVALBUTEROL HCL 0.63 MG/3 ML NEB NEB PRN (09:29)
[2024-08-06] MEDS: LEVALBUTEROL HCL 0.63 MG/3 ML NEB NEB STA (09:52)
[2024-08-06] MEDS: ALBUT/IPRATROP 3MG/0.5MG NEB 3 ML VIAL NEB SCH (10:47)
[2024-08-06] MEDS: DOCUSATE SODIUM 100 MG CAP PO SCH (10:59)
--- NOTE | 2024-08-06 14:38 | Hospitalist Progress Note ---
Date of Service August 06, 2024 Assessment & Plan (1) Influenza A: (2) Sarcoidosis of lung: Plan Ms. Toscano is a 73 year old woman with pmh asthma, sarcoidosis, PAF, MR, htn, 3rd-degree heart block s/p ICD, hemochromatosis, multiple PEs on warfarin, DM2 who presents to the ED with flu-like symptoms and is admited for sepsis iso influenza A with concern for superimposed bacterial infection #Sepsis likely 2/2 influenza a with superimpose bacterial infection *resolved #Flu-like symptoms likely 2/2 flu #Asthma #Sarcoidosis history of sarcoidosis, noted by calcified granulomatous disease on CTA Reduced steroids to daily IV, with plans to transition to po MRSA negative, d/c vanc transition to PO abx given notable clinical improvement -doxy and cefuroxime -scheduled duonebs -added xopenex -oxygen PRN, wean as able -discontinue IVF #Hx multiple PEs on warfarin CTA negative for PE -cont warfarin #PAF, MR #3rd-degree heart block s/p ICD continue metoprolol and sotalol -home meds replace lytes prn #DM2 monitor glucose while on steroids Diabetic diet continue warfarin Admission and Anticipated Discharge Date Admission Date: August 04, 2024 Subjective Reports ongoing cough and wheezing Denies fevers, but endorses increasing sputum productive since addition of Mucinex despite feeling poorly, she still reports that she is much better than admission Physical Exam Constitutional: WD/WN, vitals as above Respiratory: expiratory wheezing R>L Cardiovascular: RRR, no murmur, no edema Results & Data Results & Data Vital Signs (Past 12 Hours) Vital Signs Temp Pulse Pulse Resp BP Pulse Ox O2 Del Method 08/06/24 12:46 68 08/06/24 10:47 73 20 94 Room Air 08/06/24 10:44 36.8 C 74 18 115/65 94 Room Air 08/06/24 09:53 74 20 93 Room Air 08/06/24 07:51 Nasal Cannula 08/06/24 07:11 74 18 95 Nasal Cannula 08/06/24 07:00 36.7 C 74 18 113/76 96 Nasal Cannula 08/06/24 02:46 36.8 C 69 22 121/74 96 Nasal Cannula O2 Flow Rate 08/06/24 12:46 08/06/24 10:47 08/06/24 10:44 08/06/24 09:53 08/06/24 07:51 1 08/06/24 07:11 2 08/06/24 07:00 08/06/24 02:46 3.0 Laboratory Results Short CBC 08/06/24 Range/Units 05:28 WBC 6.95 (4.8-10.8) K/ul Hgb 11.6 L (12.0-16.0) g/dl Hct 34.7 L (37.0-47.0) % Plt Count 150 (130-400) K/uL BMP 08/06/24 05:28 Sodium 139 Potassium 4.1 Chloride 107 Carbon Dioxide 28 BUN 20 Creatinine 0.91 Glucose 98 Calcium 8.5 L Medications Administered Home Medications Medication Instructions Recorded Confirmed Last Taken cholecalciferol (vitamin D3) 25 1,000 units PO QAM 02/08/19 08/04/24 05/30/22 mcg (1,000 unit) capsule metformin 500 mg tablet 500 mg PO BID 02/08/19 08/04/24 05/30/22 warfarin 2 mg tablet (Coumadin) 1 - 2 mg PO PM 12/05/19 08/04/24 05/29/22 montelukast 10 mg tablet 10 mg PO QAM 03/07/20 08/04/24 05/30/22 (Singulair) semaglutide 0.25 mg or 0.5 mg (2 0.75 mg subcut WK 08/19/20 08/04/24 05/26/22 mg/1.5 mL) subcutaneous pen injector (Ozempic) nbmvepdm-pci-fshftr 5 mg-zeaxanth 2 cap PO BID 06/16/21 08/04/24 05/30/22 1 mg-bilberry 7.5 mg-herbal capsule ([employer] [facility] Formula) metoprolol tartrate 50 mg tablet 50 mg PO DIRECTED PRN AFIB #90 05/19/22 08/04/24 1 Month Ago tabs ~04/30/22 fluticasone propionate 50 mcg inhalation DAILY PRN 05/30/22 08/04/24 Unknown Allergy Symptoms mometasone-formoterol HFA 200 2 inh inhalation DAILY PRN sob 05/30/22 08/04/24 05/29/22 mcg-5 mcg/actuation aerosol inhaler (Dulera) rosuvastatin 10 mg tablet 10 mg PO DAILY 05/30/22 08/04/24 05/30/22 albuterol sulfate 90 mcg/actuation 2 puffs inhalation QID PRN 06/03/22 08/04/24 Unknown aerosol inhaler (Ventolin HFA) shortness of breath or wheezing #8.5 grams benzonatate 100 mg capsule 100 mg PO TID PRN cough #30 caps 06/03/22 08/04/24 08/04/24 Thelma-[place] Plus Cold-Flu 1 tab PO DAILY PRN cold/flu 08/04/24 08/04/24 08/04/24 symptoms oseltamivir 75 mg capsule 75 mg PO DIRECTED 08/04/24 08/04/24 08/04/24 metoprolol succinate 25 mg 25 mg PO QAM #90 tabs 08/06/24 Unknown tablet,extended release 24 hr sotalol 160 mg tablet 240 mg (1.5 x 160 mg) PO BID #270 08/06/24 Unknown tabs Active Medications Generic Name Dose Route Start Last Admin Trade Name Freq PRN Reason Stop Dose Admin Albuterol 3 ml 08/06/24 11:00 08/06/24 10:47 Albut/Ipratrop 3mg/0.5mg Neb 3 Ml Vial NEB 09/05/24 10:59 3 ml Q4R TA Administration Protocol Benzonatate 100 mg 08/04/24 19:29 08/06/24 08:45 Benzonatate 100 Mg Capsule PO 09/03/24 19:28 100 mg TID PRN Administration cough Cefuroxime Axetil 500 mg 08/05/24 21:00 08/06/24 08:44 Cefuroxime Axetil 500 Mg Tab PO 08/10/24 20:59 500 mg BID TA Administration Docusate Sodium 100 mg 08/06/24 09:30 08/06/24 10:59 Docusate Sodium 100 Mg Cap PO 09/05/24 09:29 100 mg BID TA Administration Doxycycline Hyclate 100 mg 08/05/24 21:00 08/06/24 08:44 Doxycycline Hyclate 100 Mg Cap PO 08/10/24 20:59 100 mg BID TA Administration Fluticasone/Vilanterol 1 puffs 08/05/24 09:00 08/06/24 08:42 Fluticasone/Vilanterol 200/25mcg 14 Puffs/Inhaler INH 09/04/24 08:59 1 puffs DAILY TA Administration Guaifenesin 600 mg 08/05/24 16:05 08/06/24 08:45 Guaifenesin 600 Mg Tabcr PO 09/04/24 16:04 600 mg Q12 TA Administration Metoprolol Succinate 25 mg 08/05/24 09:00 08/06/24 08:44 Metoprolol Succ 25mg Ext Rel Tab PO 09/04/24 08:59 25 mg QAM TA Administration Montelukast Sodium 10 mg 08/05/24 09:00 08/06/24 08:43 Montelukast Sodium 10 Mg Tablet PO 09/04/24 08:59 10 mg QAM TA Administration Multivitamins/Minerals 1 tab 08/05/24 09:00 08/06/24 08:44 Cerovite Adv Formula Tab PO 09/04/24 08:59 1 tab DAILY TA Administration Oseltamivir Phosphate 75 mg 08/04/24 21:00 08/06/24 08:43 Oseltamivir Phosphate Susp 75 Mg/12.5 Ml Udp PO 08/09/24 20:59 75 mg BID TA Administration Rosuvastatin Calcium 10 mg 08/05/24 09:00 08/06/24 08:43 Rosuvastatin Calcium 10 Mg Tab PO 09/04/24 08:59 10 mg DAILY TA Administration Sotalol HCl 240 mg 08/04/24 21:00 08/06/24 08:44 Sotalol Hcl 80 Mg Tab PO 09/03/24 20:59 240 mg BID TA Administration Vitamin D 25 mcg 08/05/24 09:00 08/06/24 08:43 Cholecalciferol 25 Mcg (1000 Units) Tab PO 09/04/24 08:59 25 mcg QAM TA Administration Warfarin Sodium 1 mg 08/04/24 21:00 08/05/24 16:02 Warfarin Sod 1 Mg Tab PO 09/03/24 20:59 1 mg [id number]@1600 TA Administration
--- NOTE | 2024-08-06 15:02 | Electrocardiogram Report ---
Test Reason : Blood Pressure : */* mmHG Vent. Rate : 66 BPM Atrial Rate : 66 BPM P-R Int : * ms QRS Dur : 178 ms QT Int : 478 ms P-R-T Axes : * -82 62 degrees QTcB Int : 501 ms AV dual-paced rhythm with premature atrial beats tracked by pacer Abnormal ECG When compared with ECG of 30-May-2022 11:40, Vent. rate has decreased by 14 bpm Confirmed by Amadou Zhao ([id number]) on 08/06/2024 3:01:59 PM Referred By: REFERRED SELF Confirmed By: Amadou Zhao
--- NOTE | 2024-08-06 15:08 | Electrocardiogram Report ---
Test Reason : Blood Pressure : */* mmHG Vent. Rate : 114 BPM Atrial Rate : 114 BPM P-R Int : * ms QRS Dur : 184 ms QT Int : 396 ms P-R-T Axes : * -89 74 degrees QTcB Int : 545 ms Ventricular-paced rhythm , probably tracking an atrial rhythm but PMT possible Abnormal ECG When compared with ECG of 04-Aug-2024 15:03, (unconfirmed) Vent. rate has increased by 48 bpm Confirmed by Amadou Zhao ([id number] on 08/06/2024 3:08:37 PM Referred By: REFERRED SELF Confirmed By: Amadou Zhao
[2024-08-06] MEDS: WARFARIN SOD 2 MG TAB PO SCH (15:50)
[2024-08-07 06:26] LABS: Hemoglobin 12.1 g/dl (12.0-16.0); Mean Corpuscular Hemoglobin 31.7 pg (25.0-34.0); Mean Corpuscular Hgb Conc 33.6 g/dL (32.0-36.0); Mean Corpuscular Volume 94.2 fL (80.0-100.0); Mean Platelet Volume 10.3 fL (9.4-12.4); Platelet Count 145 K/uL (130-400); RDW Coefficient of Variation 13.4 % (11.5-14.5); RDW Standard Deviation 45.7 fL (36.4-46.3); Red Blood Count 3.82 M/uL (4.20-5.40); White Blood Count 4.73 K/ul (4.8-10.8)
[2024-08-07 06:30] LABS: BUN Creatinine Ratio 30.1 (10-20); Calcium 8.6 mg/dl (8.6-10.3); Creatinine Clr Calc Pharmacy 108.8 ml/min; Phosphorus 3.3 mg/dl (2.5-4.9); Potassium 4.2 mmol/L (3.5-5.1)
[2024-08-07 06:50] LABS: Ferritin 38.4 ng/ml (8-388)
[2024-08-07 06:55] LABS: Folate (Folic Acid),Ser orPlas > 22.30 ng/ml (>5.38); Vitamin B12 361 pg/ml (180-914)
[2024-08-07 07:23] LABS: INR 1.9 (0.9-1.1); Prothrombin Time 19.5 Seconds (9.0-12.0)
[2024-08-07 07:46] VITALS: RESP 18
[2024-08-07 11:05] VITALS: BP 119/79; TEMP 97.5
[2024-08-07 11:27] VITALS: O2SAT 93
--- NOTE | 2024-08-07 11:43 | Discharge Summary ---
Discharge Summary Date of Service August 07, 2024 Principal Dx & Hospital Course #1 = Principal Diagnosis (1) Influenza A: (2) Sarcoidosis of lung: Plan Ms. Toscano is a 73 year old woman with pmh asthma, sarcoidosis, PAF, MR, htn, 3rd-degree heart block s/p ICD, hemochromatosis, multiple PEs on warfarin, DM2 who presents to the ED with flu-like symptoms and is admited for sepsis iso influenza A with concern for superimposed bacterial infection. Patient with uncomplicated course, receiving IV solumedrol, antibiotics and nebs. On day of discharge, patient underwent 2 step without need for oxygen #Sepsis likely 2/2 influenza a with superimpose bacterial infection *resolved #Flu-like symptoms likely 2/2 flu #Asthma #Sarcoidosis history of sarcoidosis, noted by calcified granulomatous disease on CTA Reduced steroids to daily IV, with plans to transition to po MRSA negative, d/c vanc transition to PO abx given notable clinical improvement -doxy and cefuroxime continue 3 more -prescribed duonebs -continue pred 3 more days -oxygen PRN, wean as able -discontinue IVF #Hx multiple PEs on warfarin CTA negative for PE -cont warfarin #PAF, MR #3rd-degree heart block s/p ICD continue metoprolol and sotalol -home meds replace lytes prn #DM2 monitor glucose while on steroids Notes For Next Care Provider Medication Changes From Visit Doxycycline bid x 3 days cefuroxime bid x 3 days prednisone 40mg x 3 days Admission HPI Per Admitting Provider [id number] pmh asthma, sarcoidosis, PAF, MR, htn, 3rd-degree heart block s/p ICD, hemochromatosis, multiple PEs on warfarin, DM2 who presents to the ED with flu- like symptoms. Patient states that last night she began to develop fever, chills, SOB, lightheadedness, pre-syncope, myalgias. Symptoms worsened this AM despite OTC medication usage, so she presented. Her also has the flu, and she took one of his tamiflu at home. On my evaluation patient states her breathing has significantly improved, though she still feels sickly. States that she feels somewhat similar to when she previously developed PEs and also bacteremia. Of note, patient with two episodes of PEs for which she has been on warfarin for many years. Also, sarcoidosis was very active in her youth, but has not been active in many years. Asthma is usually well controlled. Denies current cp, palpitations, but does still feel somewhat SOB, with serosanguinous sputum production. Admission Exam Per Admitting Provider Constitutional: WD/WN, vitals as above Respiratory: mild patchy wheezes Cardiovascular: Rate/Rhythm: regular rate and regular rhythm Discharge Exam Constitutional WD/WN, vitals as above Respiratory few expiratory cleared with cough Cardiovascular RRR, no murmur, no edema Gastrointestinal (Abdomen) normal bowel sounds, soft, nontender, no hepatosplenomegaly Updated Medication List Medication Instructions Recorded Confirmed Type cholecalciferol (vitamin D3) 25 1,000 units PO QAM 02/08/19 08/04/24 History mcg (1,000 unit) capsule metformin 500 mg tablet 500 mg PO BID 02/08/19 08/04/24 History warfarin 2 mg tablet (Coumadin) 1 - 2 mg PO PM 12/05/19 08/04/24 History montelukast 10 mg tablet 10 mg PO QAM 03/07/20 08/04/24 History (Singulair) semaglutide 0.25 mg or 0.5 mg (2 0.75 mg subcut WK 08/19/20 08/04/24 History mg/1.5 mL) subcutaneous pen injector (Ozempic) [id number] 5 mg-zeaxanth 2 cap PO BID 06/16/21 08/04/24 History 1 mg-bilberry 7.5 mg-herbal capsule ([employer] [facility] Formula) metoprolol tartrate 50 mg tablet 50 mg PO DIRECTED PRN AFIB #90 05/19/22 08/04/24 Rx tabs fluticasone propionate 50 mcg inhalation DAILY PRN 05/30/22 08/04/24 History Allergy Symptoms mometasone-formoterol HFA 200 2 inh inhalation DAILY PRN sob 05/30/22 08/04/24 History mcg-5 mcg/actuation aerosol inhaler (Dulera) rosuvastatin 10 mg tablet 10 mg PO DAILY 05/30/22 08/04/24 History albuterol sulfate 90 mcg/actuation 2 puffs inhalation QID PRN 06/03/22 08/04/24 Rx aerosol inhaler (Ventolin HFA) shortness of breath or wheezing #8.5 grams benzonatate 100 mg capsule 100 mg PO TID PRN cough #30 caps 06/03/22 08/04/24 Rx Thelma-[place] Plus Cold-Flu 1 tab PO DAILY PRN cold/flu 08/04/24 08/04/24 History symptoms oseltamivir 75 mg capsule 75 mg PO DIRECTED 08/04/24 08/04/24 History metoprolol succinate 25 mg 25 mg PO QAM #90 tabs 08/06/24 Rx tablet,extended release 24 hr sotalol 160 mg tablet 240 mg (1.5 x 160 mg) PO BID #270 08/06/24 Rx tabs cefuroxime axetil 500 mg tablet 500 mg PO BID #7 tabs 08/07/24 Rx doxycycline hyclate 100 mg capsule 100 mg PO BID 3 days #7 caps 08/07/24 Rx ipratropium 0.5 mg-albuterol 3 mg 3 ml inhalation Q4R 14 days #90 mL 08/07/24 Rx (2.5 mg base)/3 mL nebulization soln prednisone 20 mg tablet 40 mg (2 x 20 mg) PO DAILY 3 days 08/07/24 Rx #6 tabs Hospital Stay Data Consultations 08/04/24 17:07 ED Decision to Admit Stat Diagnostic Imagining Performed 08/04/24 18:18 CT angio chest PE protocol Urgent Pending Results Patient Have Any Pending Studies at Discharge: No Discharge Instructions Given to Patient (Per Discharging Provider) You were admitted for low oxygen levels related to Influenza A You were started on doxycycline 100mg two times a day and cefuroxime 500mg two times a day You will complete 3 more days of this medication, with your next dose this evening You will complete a course of steroid as well, your next dose is 40mg tomorrow morning You will be given a prescription for duoneb medicine for your nebulizer machine, you can use every 4-6 hours for the next two days, then transition to as needed for wheezing Total Time Total Time Spent Total Time Spent (In Minutes): 35
[2024-08-07 13:09] VITALS: PULSE 88
== END 2024-08-07 13:11 | disposition home or self-care (01) | DRG 871 ==
LOC: ED 14:41 → 2E 17:43